=== PATIENT | female | born 1950 | race Caucasian/White ===

== ENCOUNTER 2016-03-28 22:44 | Inpatient (IN) | payer MEDICARE, OTHER ==
[~2016-03-28] VITALS: Ht 162.6 cm; Wt 64.5 kg
[~2016-03-28 22:44] MED LIST: ALBU8I INH; ASCO500 PO; ASPI81TA82 PO; ATOR20TA PO; B-COTAB41 PO; CARV3.12 PO; DIGO0.12 PO; FURO1TAB93 PO; LORA-392 PO; METO2.5T7 PO; POTA-267 PO; SERT50 PO; TAB-TAB PO
[2016-03-28 23:20] VITALS: BP 115/61; PULSE 95; RESP 20; TEMP 98; O2SAT 99
[2016-03-28] MEDS ORDERED: ZOLO50TA PO (23:20)
[2016-03-28] MEDS ORDERED: DIGO0.12 PO (23:20)
[2016-03-28] MEDS ORDERED: METO2.5T PO (23:20)
[2016-03-28] MEDS ORDERED: POTA10TA2 PO (23:20)
[2016-03-28] MEDS ORDERED: MULTTAB67 PO (23:20)
[2016-03-28] MEDS ORDERED: ATOR40TA16 PO (23:20)
[2016-03-28] MEDS ORDERED: CARV3.12 PO (23:20)
[2016-03-28] MEDS ORDERED: FURO1TAB60 PO (23:20)
[2016-03-28] MEDS ORDERED: ALBUAER3 INH (23:20)
[2016-03-28] MEDS ORDERED: VITA250T3 PO (23:20)
[2016-03-28] MEDS ORDERED: ASPI1TAB69 PO (23:20)
[2016-03-28] MEDS ORDERED: LORA-392 PO (23:20)
[2016-03-28] MEDS ORDERED: VITATAB11 PO (23:20)
[2016-03-28 23:56] VITALS: RESP 20
[2016-03-29] VITALS (11 sets, daily range): BP systolic 106–120; BP diastolic 60–73; PULSE 96–104; RESP 18–20; TEMP 97–98.8; O2SAT 94–100
[2016-03-29 00:06] LABS: AUTOMATED NEUTROPHIL # 6.9 TH/MM3 (1.8-7.7); BASOPHIL # 0.1 TH/MM3 (0-0.2); EOSINOPHIL # 0.1 TH/MM3 (0-0.4); EOSINOPHIL % 0.9 % (0.0-4.0); HEMATOCRIT 31.9 % (35.0-46.0); HEMO FLAGS DIFF FINAL; LYMPHOCYTE # 1.7 TH/MM3 (1.0-4.8); MEAN CELL VOLUME 79.3 FL (80.0-100.0); MEAN CORPUSCULAR HEMOGLOBIN 25.6 PG (27.0-34.0); MEAN CORPUSCULAR HGB CONC 32.3 % (32.0-36.0); MONO % 16.7 % (0.0-8.0); NEUT % 65.4 % (16.0-70.0); PLATELET COUNT 409 TH/MM3 (150-450); RED BLOOD COUNT 4.03 MIL/MM3 (4.00-5.30); RED CELL DISTRIBUTION WIDTH 18.5 % (11.6-17.2); WHITE BLOOD COUNT 10.6 TH/MM3 (4.0-11.0)
[2016-03-29 00:15] LABS: APTT (PATIENT) 24.7 SEC (24.3-30.1); INTERNATIONAL NORMALIZED RATIO 1.5 RATIO; PROTHROMBIN TIME - PATIENT 17.4 SEC (9.8-11.6)
--- NOTE | 2016-03-29 00:21 | PD ---
HPI Chief Complaint: Respiratory Symptoms Time Seen by Provider: 23:52 Travel History International Travel<30 days: No Contact w/Intl Traveler<30days: No Traveled to known affect area: No History of Present Illness HPI 65-year-old female presents to the emergency department by EMS transport for complaint of shortness of breath. Patient reports that she has history of asthma CHF CAD with stent placement and valvular heart disease. 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 Patient states she presents to the emergency department because she has been increasing the use of her rescue inhaler and notes increasing shortness of breath with minimal exertion. No chest pain or abdominal pain. No recent febrile illness. Patient denies any respiratory illness. No dysuria frequency urgency vomiting abdominal pain diarrhea joint pain swelling or skin rash. PFSH Past Medical History Narrative Medical Arthritis asthma CAD cardiac catheterization stent placement CHF dyslipidemia GERD valvular heart disease with mitral valve replacement tobacco use alcohol use Hx Anticoagulant Therapy: No (just asa) Arthritis: Yes Asthma: Yes Autoimmune Disease: No Anxiety: Yes Depression: Yes Heart Rhythm Problems: No Cancer: No Cardiac Catheterization: Yes (3 STENTS) Cardiovascular Problems: Yes High Cholesterol: Yes Chemotherapy: No Chest Pain: No Congestive Heart Failure: Yes Coronary Artery Disease: Yes Diabetes: No Endocrine: No Gastrointestinal Disorders: Yes GERD: Yes Genitourinary: No Hiatal Hernia: No Hypertension: Yes Immune Disorder: No Implanted Vascular Access Dvce: Yes (stents) Kidney Stones: No Musculoskeletal: Yes Neurologic: No Psychiatric: Yes Reproductive: No Respiratory: Yes (chf) Immunizations Current: Yes Radiation Therapy: No Renal Failure: No Sickle Cell Disease: No Thyroid Disease: No Ulcer: No Tetanus Vaccination: Unknown Influenza Vaccination: No ?: Not Menopausal: Yes : 4 Para: 4 Past Surgical History Body Medical Devices: MITRAL VALVE REPLACEMENT Cardiac Surgery: Yes (MITRAL VALVE REPAIR, 3 STENTS) Ear Surgery: No Endocrine Surgery: No Eye Surgery: No Genitourinary Surgery: No Gynecologic Surgery: No Oral Surgery: No Thoracic Surgery: No Tonsillectomy: Yes Other Surgery: Yes Social History Alcohol Use: Yes (OCC) Tobacco Use: Yes (QUIT for now but i smoke) Substance Use: No Allergies-Medications (Allergen,Severity, Reaction): Coded Allergies: Metoprolol (Verified Allergy, Severe, Rash, 03/28/16) Uncoded Allergies: METROPOLOL (Allergy, Severe, Rash, 01/08/14) Reported Meds & Prescriptions Reported Meds & Active Scripts Active Reported Vitamin C (Ascorbic Acid) 250 Mg Tab 250 Mg PO DAILY Vitamin B Complex (B-Complex Vitamins) 1 Tab 1 Tab PO DAILY Zoloft (Sertraline HCl) 50 Mg Tab 50 Mg PO DAILY Potassium Chloride ER (Potassium Chloride) 10 Meq Tab 10 Meq PO DAILY Multiple Vitamin 1 Tab 1 Tab PO DAILY Metolazone 2.5 Mg Tab 2.5 Mg PO DAILY Ativan (Lorazepam) 0.5 Mg Tab 0.5 Mg PO Q6H PRN Lasix (Furosemide) 40 Mg Tab 40 Mg PO BID Digoxin 0.125 Mg Tab 0.125 Mg PO DAILY Carvedilol 3.125 Mg Tab 3.125 Mg PO BID Atorvastatin (Atorvastatin Calcium) 40 Mg Tab 40 Mg PO HS Aspirin 81 Mg Tabdr 81 Mg PO DAILY Proair Hfa 8.5 GM Inh (Albuterol Sulfate) 90 Mcg/Act Aer 2 Puff INH Q4-6H PRN 108 mcg/actuation Review of Systems Except as stated in HPI: all other systems reviewed are Neg Physical Exam Narrative GENERAL: Well-developed well-nourished female in no acute distress no respiratory distress; room air O2 saturation 99% SKIN: Warm and dry. HEAD: Normocephalic. EYES: No scleral icterus. No injection or drainage. NECK: Supple, trachea midline. No JVD or lymphadenopathy. CARDIOVASCULAR: Regular rate and rhythm without murmurs, gallops, or rubs. RESPIRATORY: Breath sounds equal bilaterally. Lung sounds are clear to auscultation in all driscoll. No accessory muscle use. GASTROINTESTINAL: Abdomen soft, non-tender, nondistended. MUSCULOSKELETAL: No cyanosis, or edema. BACK: Nontender without obvious deformity. No CVA tenderness. Data Data Last Documented VS Vital Signs Date Time Temp Pulse Resp B/P Pulse Ox O2 Delivery O2 Flow Rate FiO2 03/28/16 23:56 20 03/28/16 23:55 98 Nasal Cannula 2 03/28/16 23:20 98.0 95 115/61 Orders Complete Blood Count With Diff (03/28/16 23:52) Comprehensive Metabolic Panel (03/28/16 23:52) B-Type Natriuretic Peptide (03/28/16 23:52) Act Partial Throm Time (Ptt) (03/28/16 23:52) Prothrombin Time / Inr (Pt) (03/28/16 23:52) Magnesium (Mg) (03/28/16 23:52) Ckmb (Isoenzyme) Profile (03/28/16 23:52) Troponin I (03/28/16 23:52) Urinalysis - C+S If Indicated (03/28/16 23:52) Iv Access Insert/Monitor (03/28/16 23:52) Electrocardiogram (03/28/16 23:52) Ecg Monitoring (03/28/16 23:52) Oximetry (03/28/16 23:52) Oxygen Administration (03/28/16 23:52) Chest, Single Ap (03/28/16 23:52) Sodium Chloride 0.9% Flush (Ns Flush) (03/29/16 00:00) Drug Screen, Random Urine (03/29/16 01:30) Furosemide Inj (Lasix Inj) (03/29/16 02:45) Aspirin Chew (Aspirin Chew) (03/29/16 02:45) Labs Laboratory Tests Test 03/28/16 23:55 White Blood Count 10.6 TH/MM3 Red Blood Count 4.03 MIL/MM3 Hemoglobin 10.3 GM/DL Hematocrit 31.9 % Mean Corpuscular Volume 79.3 FL Mean Corpuscular Hemoglobin 25.6 PG Mean Corpuscular Hemoglobin 32.3 % Concent Red Cell Distribution Width 18.5 % Platelet Count 409 TH/MM3 Mean Platelet Volume 8.1 FL Neutrophils (%) (Auto) 65.4 % Lymphocytes (%) (Auto) 16.0 % Monocytes (%) (Auto) 16.7 % Eosinophils (%) (Auto) 0.9 % Basophils (%) (Auto) 1.0 % Neutrophils # (Auto) 6.9 TH/MM3 Lymphocytes # (Auto) 1.7 TH/MM3 Monocytes # (Auto) 1.8 TH/MM3 Eosinophils # (Auto) 0.1 TH/MM3 Basophils # (Auto) 0.1 TH/MM3 CBC Comment DIFF FINAL Differential Comment Prothrombin Time 17.4 SEC Prothromb Time International 1.5 RATIO Ratio Activated Partial 24.7 SEC Thromboplast Time Sodium Level 133 MEQ/L Potassium Level 4.2 MEQ/L Chloride Level 98 MEQ/L Carbon Dioxide Level 26.4 MEQ/L Anion Gap 9 MEQ/L Blood Urea Nitrogen 37 MG/DL Creatinine 1.12 MG/DL Estimat Glomerular Filtration 49 ML/MIN Rate Random Glucose 87 MG/DL Calcium Level 8.2 MG/DL Magnesium Level 1.6 MG/DL Total Bilirubin 1.2 MG/DL Aspartate Amino Transf 150 U/L (AST/SGOT) Alanine Aminotransferase 145 U/L (ALT/SGPT) Alkaline Phosphatase 87 U/L Total Creatine Kinase 80 U/L Troponin I 0.04 NG/ML B-Type Natriuretic Peptide 3929 PG/ML Total Protein 5.8 GM/DL Albumin 2.9 GM/DL MDM Medical Decision Making Medical Screen Exam Complete: Yes Emergency Medical Condition: Yes Medical Record Reviewed: Yes Interpretation(s) EKG normal sinus rhythm rate 95 and interventricular conduction delay no acute ST elevation nonspecific lateral ST segment flattening CBC & BMP Diagram 03/28/16 23:55 Last Impressions Chest X-Ray 03/28/16 2352 Signed Impressions: Service Date/Time: Tuesday, March 29, 2016 00:19 - CONCLUSION: 1. Increased cardiomegaly and configuration of the cardiac silhouette suggests the possibility currently of pericardial effusion. 2. Small right pleural effusion. No overt failure. Ralph Garcia MD Differential Diagnosis Dyspnea, CHF, COPD, PE, ACS, myocardial infarction Narrative Course Patient placed on blood bank technician IV access obtained specimens collected and sent for resulting Patient resting comfortably voicing no concerns or complaints Patient presently resting supine and waiting on lab results Chest x-ray shows enlarged heart concerning for possible pericardial effusion Lab values found to be in normal range except for BNP of 3900 CK troponin I within normal range renal function is only mildly elevated 37/1.12; mild chronic anemia hemoglobin 10.2 Patient aware plan for observation admission with which she is agreeable and reports feeling comfortable after gentle diuresis Physician Communication Physician Communication discussed with Ian Roberson PA-C --obs to Dr Dahl Diagnosis Primary Impression: CHF exacerbation Additional Impressions: History of COPD Pericardial effusion without cardiac tamponade Admitting Information Admitting Physician Requests: Observation Martha Rock MD Mar 29, 2016 00:21
--- NOTE | 2016-03-29 00:38 | RADRPT ---
EXAM DATE/TIME: 03/29/2016 00:19 [facility] COMPARISON: CHEST SINGLE AP, November 02, 2015, 4:03. CHEST SINGLE AP, September 28, 2015, 1:32. INDICATIONS : Shortness of breath. MEDICAL HISTORY : Congestive heart failure. CAD SURGICAL HISTORY : Mitral valve repair. Stents ENCOUNTER: Initial ACUITY: 1 month PAIN SCORE: 0/10 LOCATION: Bilateral chest FINDINGS: There is moderate to severe cardiomegaly, worsened before. Somewhat globular cardiac silhouette sugge sting the possibility of a pericardial effusion. Patient has had previous aortic valve replacement. Small pleural effusion seen right lung base. No overt edema seen. No pneumonia. No pneumothorax. CONCLUSION: 1. Increased cardiomegaly and configuration of the cardiac silhouette suggests the possibility curren tly of pericardial effusion. 2. Small right pleural effusion. No overt failure. Ralph Garcia MD on March 29, 2016 at 0:35 Board Certified Radiologist. This report was verified electronically.
[2016-03-29 00:41] LABS: ALT (GPT) 145 U/L (10-53); ANION GAP 9 MEQ/L (5-15); AST (GOT) 150 U/L (15-37); BICARBONATE 26.4 MEQ/L (21.0-32.0); BLOOD UREA NITROGEN 37 MG/DL (7-18); CHLORIDE 98 MEQ/L (98-107); GLOMERULAR FILTRATION RATE 49 ML/MIN (>89); MAGNESIUM 1.6 MG/DL (1.5-2.5); POTASSIUM 4.2 MEQ/L (3.5-5.1); SODIUM (NA) 133 MEQ/L (136-145)
[2016-03-29 00:43] LABS: ALKALINE PHOSPHATASE 87 U/L (45-117); TOTAL BILIRUBIN ADULT 1.2 MG/DL (0.2-1.0)
[2016-03-29 00:44] LABS: CREATINE KINASE 80 U/L (26-192)
[2016-03-29] MEDS ORDERED: FUROSEMIDE 40 MG/4 ML VIAL IV PUSH ONE (02:45)
[2016-03-29] MEDS ORDERED: ASPIRIN 81 MG CHEW TAB CHEW ONE (02:45)
[2016-03-29 02:47] LABS: BACTERIA, URINE RARE /hpf; BLOOD, URINE NEG (NEG); GLUCOSE,URINE NEG (NEG); HYALINE CAST, URINE 1 /lpf (RARE); KETONE, URINE NEG (NEG); MUCUS URINE FEW /lpf (OCC); NITRITE,URINE NEG (NEG); SQUAMOUS EPITHELIAL CELL URINE 4 /hpf (0-5); TRANSITIONAL EPI CELLS, URINE <1 /hpf; URINE COLOR YELLOW (YELLW/STRAW)
[2016-03-29 02:51] LABS: AMPHETAMINE, URINE NEG (NEG); BARBITURATES, URINE NEG (NEG); COCAINE, URINE NEG (NEG); COMMENT (UR) CULT NOT INDICATED; CULTURE IF INDICATED CULT NOT INDICATED
[2016-03-29] MEDS ORDERED: SODIUM CHLORIDE 0.9% FLUSH 5 ML FLUSH IVF PRN ×2 (03:00)
[2016-03-29] MEDS ORDERED: SENNOSIDES 8.6 MG TAB PO PRN (04:30)
[2016-03-29] MEDS ORDERED: ACETAMINOPHEN 325 MG TAB PO PRN (04:30)
[2016-03-29] MEDS ORDERED: NALOXONE HCL 0.4 MG/ML AMP IV PRN (04:30)
[2016-03-29] MEDS: SODIUM CHLORIDE 0.9% FLUSH 5 ML FLUSH FLUSH SCH ×2 (08:41→20:50)
[2016-03-29] MEDS: FUROSEMIDE 40 MG/4 ML VIAL IV PUSH SCH ×2 (08:41→18:27)
[2016-03-29] MEDS ORDERED: SODIUM CHLORIDE 0.9% FLUSH 5 ML FLUSH IVF SCH (09:00)
[2016-03-29] MEDS: HEPARIN SODIUM - SQ 10,000 UNITS/ML VIAL SQ SCH ×2 (09:00→20:51)
[2016-03-29] MEDS ORDERED: PILL SPLITTER OTHER PRN (10:00)
--- NOTE | 2016-03-29 10:30 | HP.UPD ---
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 The patient has had coronary stenting by Dr. Gillis 3 years ago. She is known with ejection fraction around 15%. She also has COPD and anxiety. She ran out of her anxiety medication recently. She came into the emergency department at [facility] with worsening difficulty breathing. Chest x-ray showed a questionable pericardial effusion in addition to congestion and pleural effusions. She was admitted to telemetry. Serial CKs and troponins ordered. Diuretics ordered. Anxiety medication as ordered. A neurological consultation requested. A new to the echocardiogram also ordered. Full history and physical per nurse practitioner Kajal Dahl MD Mar 29, 2016 10:28
--- NOTE | 2016-03-29 10:36 | MH ---
cc: ADRIENNE CRAFT MD DATE OF ADMISSION: 03/29/2016 DATE OF 1950 CHIEF COMPLAINT Shortness of breath. Generalized weakness and tired feeling. TRAVEL None in the last 30 days. HISTORY OF PRESENT ILLNESS This is a 65-year-old white female who had been in her usual state of health up until approximately a month ago. She noticed shortness of breath which has worsened over the past few weeks. She has a generalized weakness and fatigue noted and states that she is tired all the time. The patient was recently hospitalized in the [facility] because she was short of breath and using her rescue inhaler more often than had initially been noted. The patient denies any chest pain, denies any temp, she denies any cough and no headache. The patient has no vomiting, no diarrhea, no constipation but she does note nausea all day for the past 24 hours. She also notes a decreased appetite. When I entered the room to examine her, she was up, out of the bed and is very restless. She is having a hard time laying still and states that she has not had her Ativan for quite sometime. She notes that she had been staying with some family members since this last hospital stay and she had no money to get her medications filled. She did make mention of Zoloft and Ativan. Most of this information is being gathered from the record. The patient is a fair to poor historian but she is answering simple yes or no questions. PAST MEDICAL HISTORY 1. Arthritis. 2. Anxiety depression. 3. Coronary artery disease. 4. Hyperlipidemia. 5. GERD. 6. Tobacco use. 7. Alcohol use. 8. Congestive heart failure. 9. Hypertension. 10. Postmenopausal. 11. Valvular heart disease. PAST SURGICAL HISTORY 1. Mitral valve replacement. 2. Cardiac stents x 3. 3. Tonsillectomy. ALLERGIES METOPROLOL. MEDICATIONS Noted from home use - 1. Zoloft p.o. 2. Ativan. 3. Albuterol inhaler. 4. Coreg. 5. Digoxin. 6. Atorvastatin. 7. Lasix. 8. Multivitamin. 9. Aspirin. 10. Potassium. 11. Metolazone. 12. B-complex vitamins. 13. Vitamin C. SOCIAL HISTORY The patient was living in her own home up until approximately 1 month ago after her hospital stay. She has been staying with her daughter. Her granddaughter has recently moved in her home. She does have occasional alcohol use. She has had long-term tobacco use but states that she has not smoked in approximately 3 weeks to a month ago. No illicit drugs. FAMILY HISTORY Heart disease, congestive heart failure and hypertension. REVIEW OF SYSTEMS A 12-point review was obtained. Positive to note her restlessness, shortness of breath, generalized weakness and fatigue, decreased appetite and nausea. All other systems were negative or unremarkable. PHYSICAL EXAMINATION VITAL SIGNS: Temp 98, pulse 98-100, respirations 20, blood pressure 111/64 and 120/68. O2 sat 99 currently on room air. Has been using O2 at 2 liters. GENERAL: Well-developed, well-nourished but slim white female, looks to be her stated age, resting on the side of the bed and standing some, restless. SKIN: Warm and dry. Slightly pale. Turgor is thin. HEENT: Atraumatic, normocephalic. PERRLA, 2. No scleral icterus. No drainage. Mucous membranes are pale pink and slightly dry. NECK: Supple. No JVD. CARDIOVASCULAR: Regular rate and rhythm. Distant heart sounds. Soft murmur at the lower left sternal border. No gallops or rubs. RESPIRATORY: She has essentially clear lung sounds anteriorly and posteriorly. She does have decreased breath sounds in her right lower base. Left lower base is essentially clear. GI: Abdomen is flat, soft, nontender. Active bowel sounds in all four quadrants. MUSCULOSKELETAL: She moves all of her extremities with purpose. She has no edema and her pulses are intact. NEUROLOGIC: She is alert, oriented x 3. She understands the situation and a fair historian. 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 PSYCH: Restless, jittery. Seems to understand her current situation. Insight is normal. DIAGNOSTIC DATA White count is 10.6, RBC 4.03, hemoglobin 10.3, hematocrit 31.9, platelet count 18.5, monocyte percentage auto 16.7. Chemistry: Sodium 133, potassium 4.2, chloride 98, carbon dioxide 26.4, anion gap 9, BUN 37, creatinine 1.12. Glucose is 87. Troponin is 0.04. BNP is 3929. Albumin 2.9, total protein 5.8. Her urine is yellow, clear; pH is 6, specific gravity 1.009, negative for glucose, ketones, occult blood, nitrites or bilirubin. Toxicology: She is negative for any barbiturates, opiates, amphetamines, benzos, cocaine or cannabis. IMAGING STUDIES Her chest x-ray shows increased cardiomegaly and configuration of cardiac silhouette suggests possibility currently of pericardial effusion. Right small pleural effusion. No overt failure. ASSESSMENT AND PLAN 1. Possible pericardial effusion without tamponade. 2. Acute kidney injury. 3. Hyponatremia. 4. Moderate protein calorie malnutrition. 5. COPD exacerbation. 6. Congestive heart failure. 7. Anxiety disorder. 8. Cardiomyopathy. Our plan is to admit her in observation, monitor her vital signs q. 4, monitor with telemetry, heart sounds and her increased restlessness and agitation. The patient can be up out of bed with activity but she needs to be monitored for safety. We will place her on a heart healthy diet, reconcile her medications and monitor her labs. The patient did receive an aspirin. We will place her on DVT prophylaxis with heparin and give her IV Lasix 40 mg b.i.d., gentle diuresis. The patient will need gentle hydration. Hopefully we can obtain this with p.o. fluids. Monitor her nutritional needs and diet. If warranted, we can get a nutritional consult. Reconcile her medications. Monitor her own telemetry. Keep a patent IV. O2. The patient will need head of bed elevated. We will monitor her BNP and recheck that in the morning along with CBC and BNP. All of this plan has been discussed with the patient and we will monitor her needs. Dictated by: MART Hopson MD PRESLEY Westfall/ROSIE /8:44 AM /10:34 AM
[2016-03-29] MEDS ORDERED: LORazepam 0.5 MG TAB PO PRN (10:45)
[2016-03-29] MEDS: LORazepam 0.5 MG TAB PO PRN ×2 (11:53→20:55)
--- NOTE | 2016-03-29 12:07 | RADRPT ---
EXAM DATE/TIME: 03/29/2016 11:14 [facility] COMPARISON: No previous studies available for comparison. INDICATIONS : Elevated lab values. MEDICAL HISTORY : Hypertension. Chronic obstructive pulmonary disease. Congestive heart failure. CAD. GERD. SURGICAL HISTORY : Tonsillectomy. Coronary stent. ENCOUNTER: Initial ACUITY: 1 day PAIN SCORE: 3/10 LOCATION: Bilateral upper quadrant MEASUREMENTS: LIVER: 17.3 cm length COMMON DUCT: 5 mm RIGHT KIDNEY: 9.7 x 4.4 x 3.7 cm SPLEEN: 8.0 cm length FINDINGS: LIVER: Normal echotexture without focal lesion or ductal dilatation. The portal system is patent. There is no evidence of ascites. COMMON DUCT: No intraluminal mass or stone visualized. GALLBLADDER: Surgical removed PANCREAS: The visualized portions are within normal limits. RIGHT KIDNEY: No hydronephrosis, stone or mass. SPLEEN: No focal lesion. CONCLUSION: 1. Mildly prominent liver. 2. Otherwise, unremarkable examination. Manfred Ricketts MD on March 29, 2016 at 12:05 Board Certified Radiologist. This report was verified electronically.
--- NOTE | 2016-03-29 14:18 | EKG ---
Date Performed: 03/28/2016 Time Performed: 23:40:00 PTAGE: 65 years EKG: Sinus rhythm POSSIBLE LEFT ATRIAL ENLARGEMENT MARKED LEFT AXIS DEVIATION MODERATE INTRAVENTRICULAR CONDUCTION DEL AY ST DEVIATION AND MODERATE T-WAVE ABNORMALITY, CONSIDER LATERAL ISCHEMIA Compared to the previous t racing, there has been improvement in the lateral ST segment changes. Sinus tachycardia has resolved . ABNORMAL ECG PREVIOUS TRACING : 11/02/15 DOCTOR: Heena Huerta Interpretating Date/Time 03/29/2016 14:18:08
[2016-03-29] MEDS: RESP: ALBUTEROL 2.5 MG/IPRATROPIUM 0.5 MG NEB (PRN) NEB (16:50)
[2016-03-29] MEDS ORDERED: FUROSEMIDE 40 MG TAB PO SCH (18:00)
[2016-03-29] MEDS: CARVEDILOL 3.125 MG TAB PO SCH (20:50)
[2016-03-29] MEDS: ATORVASTATIN 40 MG TAB PO SCH (20:51)
[2016-03-30] VITALS (10 sets, daily range): BP systolic 103–127; BP diastolic 6–73; PULSE 63–100; RESP 18–20; TEMP 97.1–98.3; O2SAT 97–100
[2016-03-30] MEDS: RESP: ALBUTEROL 2.5 MG/IPRATROPIUM 0.5 MG NEB (PRN) NEB ×2 (04:03→14:16)
[2016-03-30 07:00] LABS: ALT (GPT) 161 U/L (10-53); ANION GAP 8 MEQ/L (5-15); AST (GOT) 141 U/L (15-37); BICARBONATE 27.4 MEQ/L (21.0-32.0); BLOOD UREA NITROGEN 40 MG/DL (7-18); CHLORIDE 99 MEQ/L (98-107); GLOMERULAR FILTRATION RATE 45 ML/MIN (>89); MAGNESIUM 1.8 MG/DL (1.5-2.5); POTASSIUM 4.2 MEQ/L (3.5-5.1); SODIUM (NA) 134 MEQ/L (136-145)
[2016-03-30 07:26] LABS: ALKALINE PHOSPHATASE 87 U/L (45-117); INDIRECT BILIRUBIN 0.6 MG/DL (0.0-0.8); TOTAL BILIRUBIN ADULT 0.9 MG/DL (0.2-1.0); TRANSFERRIN IRON PROFILE 316 MG/DL (200-360)
[2016-03-30] MEDS: HEPARIN SODIUM - SQ 10,000 UNITS/ML VIAL SQ SCH ×2 (09:00→21:00)
[2016-03-30] MEDS: SODIUM CHLORIDE 0.9% FLUSH 5 ML FLUSH FLUSH SCH ×2 (09:13→21:42)
[2016-03-30] MEDS: FUROSEMIDE 40 MG/4 ML VIAL IV PUSH SCH ×2 (09:13→17:51)
[2016-03-30] MEDS: METOLAZONE 2.5 MG TAB PO SCH (09:14)
[2016-03-30] MEDS: ASCORBIC ACID 500 MG TAB PO SCH (09:14)
[2016-03-30] MEDS: SERTRALINE HCL 50 MG TAB PO SCH (09:15)
[2016-03-30] MEDS: POTASSIUM CHLORIDE 10 MEQ CONTROLLED RELEASE TAB PO SCH (09:18)
[2016-03-30] MEDS: CARVEDILOL 3.125 MG TAB PO SCH ×2 (09:18→21:42)
[2016-03-30] MEDS: ASPIRIN EC 81 MG TABEC PO SCH (09:18)
[2016-03-30] MEDS: VITAMIN B COMPLEX/VIT C TAB PO SCH (09:18)
[2016-03-30] MEDS: MULTIVITAMIN TAB PO SCH (09:19)
[2016-03-30] MEDS: DIGOXIN 0.125 MG TAB PO SCH (09:19)
--- NOTE | 2016-03-30 09:28 | HHI.PR ---
Subjective Remarks Drowsy but responds to verbal stimuli No shortness of breath at rest. Some exertional dyspnea noted No chest pain Appetite fair No headache Objective Objective Results - Vital Signs Date Time Temp Pulse Resp B/P Pulse Ox O2 Delivery O2 Flow Rate FiO2 03/30/16 09:14 99 21 03/30/16 09:12 97 114/65 03/30/16 07:41 97.6 100 18 103/56 97 03/30/16 03:32 97.4 99 20 114/62 99 03/29/16 23:22 98.8 101 18 106/71 100 03/29/16 20:30 97 03/29/16 19:52 95 21 03/29/16 19:52 95 21 03/29/16 18:19 101 18 120/73 95 03/29/16 17:30 104 03/29/16 16:06 104 18 114/70 94 03/29/16 11:50 96 18 119/60 100 Result Diagram: 03/28/16 2355 03/30/16 0610 Other Results Last Impressions Liver Ultrasound 03/29/16 0000 Signed Impressions: Service Date/Time: Tuesday, March 29, 2016 11:14 - CONCLUSION: 1. Mildly prominent liver. 2. Otherwise, unremarkable examination. Manfred Ricketts MD Chest X-Ray 03/28/16 2352 Signed Impressions: Service Date/Time: Tuesday, March 29, 2016 00:19 - CONCLUSION: 1. Increased cardiomegaly and configuration of the cardiac silhouette suggests the possibility currently of pericardial effusion. 2. Small right pleural effusion. No overt failure. Ralph Garcia MD Medications and IVs Active Medications Ascorbic Acid (Vitamin C) 250 mg DAILY PO; Start 03/30/16 at 09:00 Aspirin (Ecotrin Ec) 81 mg DAILY PO; Start 03/30/16 at 09:00 Atorvastatin Calcium (Lipitor) 40 mg HS PO; Start 03/29/16 at 21:00 Carvedilol (Coreg) 3.125 mg BID PO Last administered on 03/29/16t 20:50; Admin Dose 3.125 MG; Start 03/29/16 at 21:00 Digoxin (Lanoxin) 0.125 mg DAILY PO; Start 03/30/16 at 09:00 Furosemide (Lasix) 40 mg BID@09,18 PO; Start 03/29/16 at 18:00; Stop 03/30/16 at 08:52; Status DC Lorazepam (Ativan) 0.25 mg Q6H PRN PO; Start 03/29/16 at 10:45 Lorazepam (Ativan) 0.5 mg Q6H PRN PO Last administered on 03/29/16t 20:55; Admin Dose 0.5 MG; Start 03/29/16 at 09:45 Metolazone (Zaroxolyn) 2.5 mg DAILY PO; Start 03/30/16 at 09:00 Miscellaneous (Pill Splitter) 1 ea UNSCH PRN OTHER; Start 03/29/16 at 10:00 Multivitamins (Theragran) 1 tab DAILY PO; Start 03/30/16 at 09:00 Potassium Chloride (KCl) 10 meq DAILY PO; Start 03/30/16 at 09:00 Sertraline HCl (Zoloft) 50 mg DAILY PO; Start 03/30/16 at 09:00 Vitamin B Complex/ Vitamin C (Allbee C) 1 tab DAILY PO; Start 03/30/16 at 09:00 ROS General: Fatigue, Weakness, Other (10 point ROS done. Positives noted weakness fatigue, cough h, anxiety mild) Pulmonary: Cough, SOB Neuro/MS: Other (anxiety) Physical Exam Physical Exam PHYSICAL EXAMINATION VITAL SIGNS: Temp 98, pulse 98-100, respirations 20, blood pressure 111/64 and 120/68. O2 sat 99 currently on room air. Has been using O2 at 2 liters. GENERAL: Well-developed, well-nourished but slim white female, looks to be her stated age, resting on the side of the bed and standing some, restless. SKIN: Warm and dry. Slightly pale. Turgor is thin. HEENT: Atraumatic, normocephalic. PERRLA, 2. No scleral icterus. No drainage. Mucous membranes are pale pink and slightly dry. NECK: Supple. No JVD. CARDIOVASCULAR: Regular rate and rhythm. Distant heart sounds. Soft murmur at the lower left sternal border. No gallops or rubs. RESPIRATORY: She has essentially clear lung sounds anteriorly and posteriorly. She does have decreased breath sounds in her right lower base. Left lower base is essentially clear. GI: Abdomen is flat, soft, nontender. Active bowel sounds in all four quadrants. MUSCULOSKELETAL: She moves all of her extremities with purpose. She has no edema and her pulses are intact. NEUROLOGIC: She is alert, oriented x 3. She understands the situation and a fair historian. 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 PSYCH: Restless, jittery. Seems to understand her current situation. Insight is normal. Objective Remarks My shortness of breath is better. A/P Assessment and Plan 1. Possible pericardial effusion without tamponade. 2. Acute kidney injury. 3. Hyponatremia. 4. Moderate protein calorie malnutrition. 5. COPD exacerbation. 6. Congestive heart failure. 7. Anxiety disorder. 8. Cardiomyopathy. monitor vital signs q. 4, afebrile some tachycardia depending on exertion telemetry, Anxiety mild, much improved this a.m. out of bed with assistance only, safety heart healthy diet, reconcile her medications monitor her labs., Still shows some renal insufficiency, hyponatremia mild. BMP for a.m. Needs gentle hydration to continue. Cardiology consult pending. Appreciate expert opinion. DVT prophylaxis PUD prophylaxis No nausea vomiting. Discussed With: Nurse, Family (patient), Other (Dr. Valenzuela, patient seen on his behalf) Brandi Will Mar 30, 2016 09:28 monitor vital signs q. 4, afebrile some tachycardia depending on exertion telemetry, Anxiety mild, much improved this a.m. out of bed with assistance only, safety heart healthy diet, reconcile her medications monitor her labs., Still shows some renal insufficiency, hyponatremia mild. Needs gentle hydration to continue. Discussed With: Nurse, Family (patient), Other (Dr. Valenzuela, patient seen on his behalf) Brandi Will Mar 30, 2016 09:28
[2016-03-30] MEDS: LORazepam 0.5 MG TAB PO PRN ×2 (14:50→21:42)
[2016-03-30] MEDS: SODIUM CHLORIDE 0.9% FLUSH 5 ML FLUSH FLUSH PRN (17:51)
[2016-03-30] MEDS: ATORVASTATIN 40 MG TAB PO SCH (21:00)
--- NOTE | 2016-03-30 22:09 | MB ---
cc: SERGIO GILLIS DATE OF CONSULTATION 03/30/2016 HISTORY OF PRESENT ILLNESS Ms. Neal is a 65-year-old white female, a patient of Dr. Monroe, was admitted with progressive shortness of breath over the last several weeks, generalized fatigue. She recently ran out of her anxiety medications. She has not had any clear angina. She was found to have cardiomegaly on her chest x-ray. She is now feeling better with diuresis. PAST MEDICAL HISTORY 1. Positive for mitral valve repair. 2. Coronary artery disease. 3. Coronary stenting. 4. Arthritis. 5. Anxiety. 6. Dyslipidemia. 7. Gastroesophageal reflux disease. 8. Congestive heart failure. 9. Cardiomyopathy. 10. Hypertension. 11. History of tonsillectomy. MEDICATIONS AT HOME 1. Zoloft. 2. Ativan. 3. Albuterol inhaler. 4. Coreg. 5. Digoxin. 6. Atorvastatin. 7. Lasix. 8. Multivitamin. 9. Aspirin. 10. Potassium. 11. Metolazone. 12. B-complex vitamins. 13. Vitamin C. 14. Metoprolol. SOCIAL HISTORY She quit smoking three weeks ago. She drinks alcohol socially. She lives with her daughter. FAMILY HISTORY Positive for heart disease. REVIEW OF SYSTEMS Otherwise negative. PHYSICAL EXAMINATION VITAL SIGNS: Blood pressure 123/62, pulse 95 and regular. HEENT: Negative. NECK: 2+ carotid upstrokes. No bruits. LUNGS: Clear. HEART: Regular with a 1/6 systolic murmur, heard best at the left lower sternal border and apex. No gallop. ABDOMEN: Soft. No bruits. EXTREMITIES: Without edema. 1-2+ distal pulses. NEUROLOGIC EXAM: Grossly nonfocal. EKG Reviewed and showed normal sinus rhythm, left axis, left anterior fascicular block, intraventricular conduction delay, non-specific ST-T changes, unchanged from previous studies. LABS Hemoglobin 10.3. Potassium 4.2, creatinine 1.2. Troponin negative x 3. AST and ALT are elevated. BNP 3921. DIAGNOSES 1. Acute exacerbation of chronic systolic congestive heart failure. 2. Cardiomyopathy. 3. Acute renal insufficiency. 4. Chronic obstructive pulmonary disease exacerbation. 5. Valvular heart disease, status post mitral valve repair. 6. Coronary artery disease with history of coronary stenting. 7. Hypertension. 8. Dyslipidemia. DISPOSITION Ms. Neal was found to have evidence of cardiomegaly on her chest x-ray. We will obtain echocardiogram to evaluate for pericardial effusion, to evaluate left ventricular function and also to evaluate her valvular heart disease. She reportedly had stress test six months ago which did not show any significant ischemia. Her policy advisor is Dr. Monroe. She will continue therapy for congestive heart failure. I will follow her for cardiology during her hospitalization. She will follow up with Dr. Monroe in his office after discharge. Sergio Gillis MD OQ/SSB /9:13 PM /9:47 PM MTDGlenis
[2016-03-31] VITALS (8 sets, daily range): BP systolic 106–121; BP diastolic 57–68; PULSE 81–100; RESP 16–20; TEMP 95.9–98.1; O2SAT 97–100
[2016-03-31 08:03] LABS: BICARBONATE 31.6 MEQ/L (21.0-32.0); POTASSIUM 3.4 MEQ/L (3.5-5.1)
--- NOTE | 2016-03-31 08:49 | HHI.PR ---
Subjective Subjective Remarks ambulating in room no distress, no CARR no cp no sob afebrile feels okay waiting to have echo Review of Systems Constitutional Constitutional Remarks 12 point ROS completed, negative except as noted above Vitals/Results Vital Signs Vital Signs Date Time Temp Pulse Resp B/P Pulse Ox O2 Delivery O2 Flow Rate FiO2 03/31/16 08:00 98.1 96 18 121/67 98 03/31/16 06:55 21 03/31/16 04:25 97.6 100 20 108/57 99 03/31/16 00:01 90 03/30/16 23:32 98.1 94 20 113/56 99 03/30/16 19:55 97.1 95 20 123/62 99 03/30/16 17:14 93 105/65 03/30/16 15:41 98.3 92 18 127/73 100 03/30/16 11:24 98.1 63 18 115/61 98 03/30/16 09:14 99 21 03/30/16 09:12 97 114/65 CBC/BMP: 03/28/16 2355 03/31/16 0655 Lab Results Laboratory Tests Test 03/31/16 06:55 Sodium Level 134 MEQ/L Potassium Level 3.4 MEQ/L Chloride Level 94 MEQ/L Carbon Dioxide Level 31.6 MEQ/L Anion Gap 8 MEQ/L Blood Urea Nitrogen 43 MG/DL Creatinine 1.14 MG/DL Estimat Glomerular Filtration 48 ML/MIN Rate Random Glucose 85 MG/DL Calcium Level 8.5 MG/DL Physical Exam General General Appearance: Well Developed, Well Nourished, No Acute Distress, Comfortable Eyes Eye Exam: Pupils Equal, Pupils Reactive Ears & Nose Ears & Nose Exam: Nasal Mucosa [place] Throat Throat Exam: Oral Mucosa [place] & Moist Neck Neck Exam: Neck Supple, Trachea Midline Pulmonary Resp Exam: Clear Bilaterally Cardiology CV Exam: Regular, Murmur Gastrointestinal/Abdomen GI Exam: Soft, Non-Tender, Bowel Sounds Present, Non-Distended Musculoskeletal MS Exam: Joints Intact Integumentary Skin Exam: Warm, Dry, Intact Extremeties Extremities Exam: No Edema, Pedal Pulses Palpable Neurologic Neuro Exam: Alert, Awake, Oriented, Speech Clear, Moving All Extremities, No Focal Deficits Psychiatric Psych Exam: Appropriate Responses VTE Prophylaxis VTE Prophylaxis Device: SCDs Assessment/Plan Problem List: (1) CHF (congestive heart failure) (2) CAD (coronary artery disease) (3) Cardiomyopathy (4) History of COPD (5) Pericardial effusion without cardiac tamponade (6) Hx of mitral valve repair (7) Anxiety Assessment/Plan continue with IV diuretics, Metolazone monitor I/O 2D echo pending appreciate card input continuous telemetry may need ATTILA, will wait for echo Continue BB/ASA/Dig Heparin for DVT prophylaxis Duonebs PRN wait for echo continue as above D/W RN D/W Dr. Dahl D/W pt This patient was seen by myself and Dr. Dahl, this note is written on his behalf. Problem Qualifiers (1) CHF (congestive heart failure): Qualified Code: I50.23 - Acute on chronic systolic congestive heart failure (2) CAD (coronary artery disease): Qualified Code: I25.10 - Coronary artery disease involving [place] coronary artery of [place] heart without angina pectoris (3) Cardiomyopathy: Qualified Code: I42.9 - Cardiomyopathy, unspecified type Monse Ledesma Mar 31, 2016 08:49
[2016-03-31] MEDS: SODIUM CHLORIDE 0.9% FLUSH 5 ML FLUSH FLUSH SCH ×2 (08:50→21:28)
[2016-03-31] MEDS: FUROSEMIDE 40 MG/4 ML VIAL IV PUSH SCH ×2 (08:51→17:45)
[2016-03-31] MEDS: POTASSIUM CHLORIDE 10 MEQ CONTROLLED RELEASE TAB PO SCH ×2 (08:51→21:28)
[2016-03-31] MEDS: CARVEDILOL 3.125 MG TAB PO SCH ×2 (08:51→21:27)
[2016-03-31] MEDS: VITAMIN B COMPLEX/VIT C TAB PO SCH (08:51)
[2016-03-31] MEDS: ASPIRIN EC 81 MG TABEC PO SCH (08:51)
[2016-03-31] MEDS: MULTIVITAMIN TAB PO SCH (08:52)
[2016-03-31] MEDS: HEPARIN SODIUM - SQ 10,000 UNITS/ML VIAL SQ SCH ×2 (08:52→21:00)
[2016-03-31] MEDS: SERTRALINE HCL 50 MG TAB PO SCH (08:52)
[2016-03-31] MEDS: DIGOXIN 0.125 MG TAB PO SCH (08:52)
[2016-03-31] MEDS: METOLAZONE 2.5 MG TAB PO SCH (08:52)
[2016-03-31] MEDS: ASCORBIC ACID 500 MG TAB PO SCH (08:52)
[2016-03-31] MEDS ORDERED: POTASSIUM CL 40 MEQ/30 ML LIQ UDC PO ONE (09:15)
[2016-03-31] MEDS: RESP: ALBUTEROL 2.5 MG/IPRATROPIUM 0.5 MG NEB (PRN) NEB (11:08)
--- NOTE | 2016-03-31 13:20 | PD.PN.STU ---
Subjective Remarks pt is a 65 yo female that presented to the ED with SOB and COPD exacerbation. Chest Xray shows cardiomegaly, pericardial effusion, and small right pleural effusion. GI is consulted because of elevated liver function tests. AST 141, ALT 161, and alk phos 87, total bili .9, direct .3, and indirect .6. The patient reports rare alcohol use and use to drink years ago, denies illicit drug use, and denies new sexual partners. She does not report any past medical history or family history of hepatitis, pancreatitis or GI complaints. No nausea , vomiting, change in stools, urine, or abdominal pain reported. ROS: Negative for GI complaints Objective Vitals AST 141, ALT 161, and alk phos 87, total bili .9, direct .3, and indirect .6. Liver u/s= 17.3 cm and no other features. PT: 17.7 Drug screen negative Hepatitis panel pending ABD: no pain illicit on palpation, normal bowel sounds. No ascites, jaundice, scleral icterus, spider angiomas, no encephalopathy Vital Signs Date Time Temp Pulse Resp B/P Pulse Ox O2 Delivery O2 Flow Rate FiO2 03/31/16 12:00 96.9 81 16 118/68 98 03/31/16 08:00 98.1 96 18 121/67 98 03/31/16 07:16 92 03/31/16 06:55 21 03/31/16 04:25 97.6 100 20 108/57 99 03/31/16 00:01 90 03/30/16 23:32 98.1 94 20 113/56 99 03/30/16 19:55 97.1 95 20 123/62 99 03/30/16 17:14 93 105/65 03/30/16 15:41 98.3 92 18 127/73 100 Result Diagram: 03/28/16 2355 03/31/16 0655 A/P Assessment and Plan Hepatocellular injury due to drug induced or viral. Await hepatitis panel. Branden Orozco Mar 31, 2016 13:20
[2016-03-31] MEDS: LORazepam 0.5 MG TAB PO PRN ×2 (14:24→21:28)
--- NOTE | 2016-03-31 16:18 | EC ---
Study Study Date:03/31/2016 STUDY CONCLUSIONS SUMMARY - Left ventricle: The cavity size was severely dilated. Systolic function was severely reduced. The estimated ejection fraction was in the range of 10% to 15%. Diffuse hypokinesis. - Mitral valve: An annular ring prosthesis was present. The findings are consistent with mild stenosis. Moderate to severe regurgitation. - Left atrium: The atrium was moderately dilated. - Right ventricle: The cavity size was dilated. - Right atrium: The atrium was severely dilated. - Tricuspid valve: Moderate regurgitation. - Pulmonic valve: Mild regurgitation. - Pulmonary arteries: PA peak pressure: 48mm Hg (S). If LV function is below 40, please consider prescribing an ACEI or ARB or document rationale for non-use. PROCEDURE DATA STUDY STATUS: Elective. Procedure: Transthoracic echocardiography. Image quality was good. Scanning was performed from the parasternal, apical, and subcostal acoustic windows. Study completion: The patient tolerated the procedure well. Transthoracic echocardiography. M-mode, complete 2D, complete spectral Doppler, and color Doppler. Height: Height: 64in. Weight: Weight: 142.7lb. Body mass index: BMI: 24.5kg/m^2. Body surface area: BSA: 1.7m^2. Patient status: Inpatient. CARDIAC ANATOMY LEFT VENTRICLE: The cavity size was severely dilated. Systolic function was severely reduced. The estimated ejection fraction was in the range of 10% to 15%. Diffuse hypokinesis. AORTIC VALVE: The valve appears to be grossly normal. Trileaflet. Doppler: There was no stenosis. No significant regurgitation. Valve area: 1.08cm^2(VTI). Indexed valve area: 0.64cm^2/m^2 (VTI). Valve area: 0.99cm^2 (Vmax). Indexed valve area: 0.58cm^2/m^2 (Vmax). Mean gradient: 3mm Hg (S). MITRAL VALVE: Moderately thickened leaflets, . An annular ring prosthesis was present. Doppler: The findings are consistent with mild stenosis. There does appear to be increased flow across the mitral valve, concerning for mitral stenosis. This appears to be most likely mild. Valve area by continuity equation is incorrect due to significant mitral regurgitation. Moderate to severe regurgitation. Valve area by pressure half-time: 2.93cm^2. Indexed valve area by pressure half-time: 1.72cm^2/m^2. Valve area by continuity equation (using LVOT flow): 0.39cm^2. Indexed valve area by continuity equation (using LVOT flow): 0.23cm^2/m^2. Mean gradient: 7mm Hg (D). Peak gradient: 18mm Hg (D). LEFT ATRIUM: The atrium was moderately dilated. RIGHT VENTRICLE: The cavity size was dilated. PULMONIC VALVE: Not well visualized. Doppler: There was no evidence for stenosis. Mild regurgitation. TRICUSPID VALVE: The valve appears to be grossly normal. Doppler: There was no evidence for stenosis. Moderate regurgitation. RIGHT ATRIUM: The atrium was severely dilated. PERICARDIUM: There was no pericardial effusion. Patient weight: 142.7lb _Ejection fraction:_ 65-75% _Fractional shortening:_ 32% up to 5Kg 5-11.5Kg 11.6-22.9Kg 23-45Kg 45-57Kg Aortic Root 7-13 <17 13-22 17-27 17-27 LA diam 6-13 <23 24-38 33-47 37-40 RVID 10-17 7-15 7-15 7-18 8-17 LVIDd 12-22 <32 24-38 33-47 37-40 LVPW 2-4 3-6 5-7 6-8 7-8 IVS 2-4 3-6 5-7 6-8 7-8 BASIC MEASUREMENTS ADULT NORMAL Left ventricle LV internal dimension, ED, chordal *74.7 mm 43-52 level, PLAX LV internal dimension, ES, chordal *70.9 mm 23-38 level, PLAX Fractional shortening, chordal level, *5 % >29 PLAX LV posterior wall thickness, ED 9.36 mm IVS/LVPW ratio, ED 1.01 <1.3 Volume, ED, MOD, 1-plane 310 ml Volume, ES, MOD, 1-plane 274 ml Ejection fraction, MOD, 1-plane 12 % Stroke volume, MOD, 1-plane 36 ml Volume index, ED, MOD, 1-plane 182 ml/m^2 Volume index, ES, MOD, 1-plane 161 ml/m^2 Stroke index, MOD, 1-plane 21.2 ml/m^2 Volume, ED, MOD, 2-plane 308 ml Volume, ES, MOD, 2-plane 275 ml Ejection fraction, MOD, 2-plane 11 % Stroke volume, MOD, 2-plane 33 ml Volume index, ED, MOD, 2-plane 181 ml/m^2 Volume index, ES, MOD, 2-plane 162 ml/m^2 Stroke index, MOD, 2-plane 19.4 ml/m^2 Ventricular septum Septal thickness, ED 9.49 mm Aortic valve Leaflet separation 18 mm 15-26 Aorta Root diameter, ED 30 mm Left atrium Anterior-posterior dimension 40 mm Anterior-posterior dimension index *2.35 cm/m^2 <2.2 BASIC MEASUREMENTS ADULT NORMAL Aortic valve Leaflet separation 18 mm 15-26 DOPPLER MEASUREMENTS ADULT NORMAL Main pulmonary artery Pressure, S *48 mm Hg =30 Aortic valve Peak velocity, S 112 cm/s Mean velocity, S 82.4 cm/s VTI, S 43.9 cm Mean gradient, S 3 mm Hg Valve area, VTI 1.08 cm^2 Valve area index, VTI 0.64 cm^2/m^2 Valve area, Vmax 0.99 cm^2 Valve area index, Vmax 0.58 cm^2/m^2 Mitral valve Peak E-wave velocity 200 cm/s Peak A-wave velocity 114 cm/s Mean velocity, D 127 cm/s Pressure half-time 75 ms Mean gradient, D 7 mm Hg Peak gradient, D 18 mm Hg Peak E/A ratio 1.8 Valve area, pressure half-time 2.93 cm^2 Valve area index, pressure half-time 1.72 cm^2/m^2 Valve area, LVOT continuity 0.39 cm^2 Valve area index, LVOT continuity 0.23 cm^2/m^2 Tricuspid valve Regurgitant peak velocity 240 cm/s Peak RV-RA gradient, S 23 mm Hg Maximal regurgitant velocity 240 cm/s Systemic veins Estimated CVP 10 mm Hg Right ventricle RV pressure, S *50 mm Hg <30 Pulmonic valve Peak velocity, S 66.2 cm/s LEGEND: Mean values are shown as u=mean value. Asterisk (*) parker values outside specified normal range. Prepared and signed by Graham Schmidt [id number]
--- NOTE | 2016-03-31 17:06 | PD.CONS ---
HPI History of Present Illness This is a 65 year old female whom we are asked to evaluate for abnormal liver function tests apparently the patient was admitted to the hospital to 3 days ago with complaints of shortness of breath she is diagnosed with congestive heart failure and is currently being treated for it she's gradually improving but she was noted to have elevated liver function tests the patient does not recall having had problems with the liver in the past she denies any abdominal pain nausea vomiting diarrhea constipation denies any fever or chills her major complaints were mostly of shortness of breath and dyspnea on exertion she is also known for a while but she has congestive heart failure apparently on a prior note from cardiology she has an ejection fraction of about 20-25% she also has had a history of mitral valve repair and recently she was told she has a leak in both her mitral valve and her tricuspid valve [facility] Past Medical History 1. Arthritis. 2. Anxiety depression. 3. Coronary artery disease. 4. Hyperlipidemia. 5. GERD. 6. Tobacco use. 7. Alcohol use. 8. Congestive heart failure. 9. Hypertension. 10. Postmenopausal. 11. Valvular heart disease. Past Surgical History PAST SURGICAL HISTORY 1. Mitral valve replacement. 2. Cardiac stents x 3. 3. Tonsillectomy. Coded Allergies: Metoprolol (Verified Allergy, Severe, Rash, 03/28/16) Uncoded Allergies: METROPOLOL (Allergy, Severe, Rash, 01/08/14) Medications 1. Zoloft p.o. 2. Ativan. 3. Albuterol inhaler. 4. Coreg. 5. Digoxin. 6. Atorvastatin. 7. Lasix. 8. Multivitamin. 9. Aspirin. 10. Potassium. 11. Metolazone. 12. B-complex vitamins. 13. Vitamin C. Family History Heart disease, congestive heart failure and hypertension. Social History occasional alcohol use. She has had long-term tobacco use but states that she has not smoked in approximately 3-1/2 weeks Review of Systems ROS Review of systems Patient denies any headache dizziness blurry vision, denies any chest pain shortness of breath cough fever chills, Denies any palpitations or fatigue denies any polyuria dysuria hematuria, denies any numbness tingling or weakness, denies any skin rash pruritus or jaundice, denies any easy bruising or bleeding tendency, denies any recent change in mood GI Exam Vitals I&O Vital Signs Date Time Temp Pulse Resp B/P Pulse Ox O2 Delivery O2 Flow Rate FiO2 03/31/16 12:00 96.9 81 16 118/68 98 03/31/16 08:00 98.1 96 18 121/67 98 03/31/16 07:16 92 03/31/16 06:55 21 03/31/16 04:25 97.6 100 20 108/57 99 03/31/16 00:01 90 03/30/16 23:32 98.1 94 20 113/56 99 03/30/16 19:55 97.1 95 20 123/62 99 03/30/16 17:14 93 105/65 I/O 03/30/16 03/30/16 03/30/16 03/31/16 03/31/16 03/31/16 07:00 15:00 23:00 07:00 15:00 23:00 Intake Total 480 ml Balance 480 ml Intake Oral 480 ml # Voids 3 1 Imaging Last Impressions Liver Ultrasound 03/29/16 0000 Signed Impressions: Service Date/Time: Tuesday, March 29, 2016 11:14 - CONCLUSION: 1. Mildly prominent liver. 2. Otherwise, unremarkable examination. Manfred Ricketts MD Chest X-Ray 03/28/16 1811 Signed Impressions: Service Date/Time: Tuesday, March 29, 2016 00:19 - CONCLUSION: 1. Increased cardiomegaly and configuration of the cardiac silhouette suggests the possibility currently of pericardial effusion. 2. Small right pleural effusion. No overt failure. Ralph Garcia MD Laboratory Test 03/31/16 03/31/16 06:55 11:03 Sodium Level 134 MEQ/L Potassium Level 3.4 MEQ/L Chloride Level 94 MEQ/L Carbon Dioxide Level 31.6 MEQ/L Anion Gap 8 MEQ/L Blood Urea Nitrogen 43 MG/DL Creatinine 1.14 MG/DL Estimat Glomerular Filtration 48 ML/MIN Rate Random Glucose 85 MG/DL Calcium Level 8.5 MG/DL Hepatitis A IgM Antibody NEGATIVE Hepatitis B Surface Antigen NEGATIVE Hepatitis B Core IgM Antibody NEGATIVE Hepatitis C Antibody NEGATIVE Physical Examination HEENT: Pupils round and reactive to light; normocephalic; atraumatic; no jaundice. Throat is clear. NECK: Neck is supple, no JVD, no lymphadenopathy. CHEST: Chest is clear to auscultation and percussion. CARDIAC: Regular rate and rhythm with no gallop or rubs. Cardiac murmurs auscultated ABDOMEN: Soft, nondistended, nontender; no hepatosplenomegaly; bowel sounds are present in all four quadrants. EXTREMITIES: No clubbing, cyanosis, or edema. SKIN: Normal; no rash; no jaundice. 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 Assessment and Plan Plan Patient with congestive heart failure and valvular heart disease who has ejection fraction of about 10-15% is also noted to have an elevation of her liver function tests with a prominent liver on the ultrasound Patient most likely has congestive hepatopathy We will monitor her labs Recommend treating her congestive heart failure and hopefully we'll see a decline in her liver enzymes Further recommendations shall depend on her hospital course Dayo Montes MD Mar 31, 2016 17:06
[2016-03-31] MEDS: SODIUM CHLORIDE 0.9% FLUSH 5 ML FLUSH FLUSH PRN (17:44)
[2016-03-31] MEDS: ATORVASTATIN 40 MG TAB PO SCH (21:00)
[2016-03-31] MEDS: ONDANSETRON HCL 4 MG/2 ML VIAL IVP PRN (22:47)
[2016-04-01 04:21] VITALS: BP 121/73; PULSE 88; RESP 18; TEMP 97.4; O2SAT 95
[2016-04-01 07:45] LABS: HEMATOCRIT 30.6 % (35.0-46.0); MEAN CELL VOLUME 79.5 FL (80.0-100.0); MEAN CORPUSCULAR HEMOGLOBIN 24.9 PG (27.0-34.0); MEAN CORPUSCULAR HGB CONC 31.3 % (32.0-36.0); PLATELET COUNT 391 TH/MM3 (150-450); RED BLOOD COUNT 3.85 MIL/MM3 (4.00-5.30); RED CELL DISTRIBUTION WIDTH 18.9 % (11.6-17.2); WHITE BLOOD COUNT 12.3 TH/MM3 (4.0-11.0)
[2016-04-01 07:46] LABS: REVIEW FLAG FINAL
[2016-04-01 08:00] VITALS: PULSE 92
[2016-04-01 08:21] LABS: ALKALINE PHOSPHATASE 130 U/L (45-117); ALT (GPT) 226 U/L (10-53); ANION GAP 12 MEQ/L (5-15); AST (GOT) 166 U/L (15-37); BLOOD UREA NITROGEN 48 MG/DL (7-18); CHLORIDE 88 MEQ/L (98-107); GLOMERULAR FILTRATION RATE 37 ML/MIN (>89); POTASSIUM 3.4 MEQ/L (3.5-5.1); SODIUM (NA) 134 MEQ/L (136-145); TOTAL BILIRUBIN ADULT 0.7 MG/DL (0.2-1.0)
[2016-04-01] MEDS ORDERED: POTASSIUM CL 40 MEQ/30 ML LIQ UDC PO ONE (08:30)
--- NOTE | 2016-04-01 08:31 | HHI.PR ---
Subjective Subjective Remarks c/o anxiety, wants Ativan no cp no sob ambulating without distress tele reviewed, 11 NSVT noted asymptomatic Review of Systems Constitutional Constitutional Remarks 12 point ROS completed, negative except as noted above Vitals/Results Intake & Output 03/31/16 03/31/16 04/01/16 15:00 23:00 07:00 Intake Total 480 ml 360 ml Balance 480 ml 360 ml Intake Oral 480 ml 360 ml # Voids 1 4 # Bowel Movements 1 Vital Signs Vital Signs Date Time Temp Pulse Resp B/P Pulse Ox O2 Delivery O2 Flow Rate FiO2 04/01/16 04:21 97.4 88 18 121/73 95 03/31/16 20:01 96.4 91 18 106/68 99 03/31/16 19:16 97 03/31/16 16:03 95.9 88 18 108/60 100 03/31/16 12:00 96.9 81 16 118/68 98 CBC/BMP: 04/01/16 0610 04/01/16 0610 Lab Results Laboratory Tests Test 03/31/16 04/01/16 11:03 06:10 Hepatitis A IgM Antibody NEGATIVE Hepatitis B Surface Antigen NEGATIVE Hepatitis B Core IgM Antibody NEGATIVE Hepatitis C Antibody NEGATIVE White Blood Count 12.3 TH/MM3 Red Blood Count 3.85 MIL/MM3 Hemoglobin 9.6 GM/DL Hematocrit 30.6 % Mean Corpuscular Volume 79.5 FL Mean Corpuscular Hemoglobin 24.9 PG Mean Corpuscular Hemoglobin 31.3 % Concent Red Cell Distribution Width 18.9 % Platelet Count 391 TH/MM3 Mean Platelet Volume 8.2 FL Sodium Level 134 MEQ/L Potassium Level 3.4 MEQ/L Chloride Level 88 MEQ/L Carbon Dioxide Level 34.0 MEQ/L Anion Gap 12 MEQ/L Blood Urea Nitrogen 48 MG/DL Creatinine 1.44 MG/DL Estimat Glomerular Filtration 37 ML/MIN Rate Random Glucose 108 MG/DL Calcium Level 8.4 MG/DL Total Bilirubin 0.7 MG/DL Aspartate Amino Transf 166 U/L (AST/SGOT) Alanine Aminotransferase 226 U/L (ALT/SGPT) Alkaline Phosphatase 130 U/L Total Protein 6.1 GM/DL Albumin 2.8 GM/DL Physical Exam General General Appearance: Well Developed, Well Nourished, No Acute Distress, Comfortable Eyes Eye Exam: Pupils Equal, Pupils Reactive Ears & Nose Ears & Nose Exam: Nasal Mucosa [place] Throat Throat Exam: Oral Mucosa [place] & Moist Neck Neck Exam: Neck Supple, Trachea Midline Pulmonary Resp Exam: Clear Bilaterally Cardiology CV Exam: Regular, Murmur Gastrointestinal/Abdomen GI Exam: Soft, Non-Tender, Bowel Sounds Present, Non-Distended Musculoskeletal MS Exam: Joints Intact Integumentary Skin Exam: Warm, Dry, Intact Extremeties Extremities Exam: No Edema, Pedal Pulses Palpable Neurologic Neuro Exam: Alert, Awake, Oriented, Speech Clear, Moving All Extremities, No Focal Deficits Psychiatric Psych Exam: Appropriate Responses VTE Prophylaxis VTE Prophylaxis Device: SCDs Assessment/Plan Problem List: (1) CHF (congestive heart failure) (2) CAD (coronary artery disease) (3) Cardiomyopathy (4) History of COPD (5) Pericardial effusion without cardiac tamponade (6) Hx of mitral valve repair (7) Anxiety (8) Transaminitis Assessment/Plan continue with IV diuretics, Metolazone monitor I/O 2D echo EF 10-15% appreciate card input continuous telemetry Continue BB/ASA/Dig/Metolazone will need ATTILA, however renal fx has declined. Noted with NSVT 11 beats. will increase Coreg to 12.5 mg po bid will check Mg Replace K PO LFTs elevated, likely sec. to CHF Hep profile negative Appreciate GI input Heparin for DVT prophylaxis Duonebs PRN Ativan PRN Labs reviewed Continue with above tx Labs in am D/W RN D/W Dr. Dahl D/W pt This patient was seen by myself and Dr. Dahl, this note is written on his behalf. Problem Qualifiers (1) CHF (congestive heart failure): Qualified Code: I50.23 - Acute on chronic systolic congestive heart failure (2) CAD (coronary artery disease): Qualified Code: I25.10 - Coronary artery disease involving [place] coronary artery of [place] heart without angina pectoris (3) Cardiomyopathy: Qualified Code: I42.9 - Cardiomyopathy, unspecified type Monse Ledesma Apr 01, 2016 08:31
[2016-04-01 08:39] VITALS: BP 111/59; PULSE 98; RESP 18; TEMP 97.5; O2SAT 93
[2016-04-01] MEDS: HEPARIN SODIUM - SQ 10,000 UNITS/ML VIAL SQ SCH ×2 (09:00→20:20)
[2016-04-01] MEDS: CARVEDILOL 12.5 MG TAB PO SCH ×2 (09:00→20:20)
[2016-04-01] MEDS: SODIUM CHLORIDE 0.9% FLUSH 5 ML FLUSH FLUSH SCH ×2 (09:09→20:20)
[2016-04-01] MEDS: METOLAZONE 2.5 MG TAB PO SCH (09:10)
[2016-04-01] MEDS: DIGOXIN 0.125 MG TAB PO SCH (09:10)
[2016-04-01] MEDS: LORazepam 0.5 MG TAB PO PRN ×2 (09:11→17:38)
[2016-04-01] MEDS: ASPIRIN EC 81 MG TABEC PO SCH (09:11)
[2016-04-01] MEDS: VITAMIN B COMPLEX/VIT C TAB PO SCH (09:11)
[2016-04-01] MEDS: SERTRALINE HCL 50 MG TAB PO SCH (09:11)
[2016-04-01] MEDS: POTASSIUM CHLORIDE 10 MEQ CONTROLLED RELEASE TAB PO SCH ×2 (09:11→20:20)
[2016-04-01] MEDS: MULTIVITAMIN TAB PO SCH (09:11)
[2016-04-01] MEDS: ASCORBIC ACID 500 MG TAB PO SCH (09:12)
[2016-04-01] MEDS: FUROSEMIDE 40 MG/4 ML VIAL IV PUSH SCH ×2 (09:12→17:34)
--- NOTE | 2016-04-01 10:03 | HHI.GIFU ---
Subjective Remarks Resting in bed. Denies any nausea, vomiting, or abdominal pain. Tolerating diet. (Lori Browning) Objective Vitals I&O Vital Signs Date Time Temp Pulse Resp B/P Pulse Ox O2 Delivery O2 Flow Rate FiO2 04/01/16 08:39 97.5 98 18 93 04/01/16 04:21 97.4 88 18 121/73 95 03/31/16 20:01 96.4 91 18 106/68 99 03/31/16 19:16 97 03/31/16 16:03 95.9 88 18 108/60 100 03/31/16 12:00 96.9 81 16 118/68 98 I/O 03/31/16 03/31/16 03/31/16 04/01/16 04/01/16 04/01/16 07:00 15:00 23:00 07:00 15:00 23:00 Intake Total 480 ml 360 ml Balance 480 ml 360 ml Intake Oral 480 ml 360 ml # Voids 3 1 4 # Bowel Movements 1 Laboratory Laboratory Tests Test 03/31/16 04/01/16 11:03 06:10 Hepatitis A IgM Antibody NEGATIVE Hepatitis B Surface Antigen NEGATIVE Hepatitis B Core IgM Antibody NEGATIVE Hepatitis C Antibody NEGATIVE White Blood Count 12.3 Red Blood Count 3.85 Hemoglobin 9.6 Hematocrit 30.6 Mean Corpuscular Volume 79.5 Mean Corpuscular Hemoglobin 24.9 Mean Corpuscular Hemoglobin 31.3 Concent Red Cell Distribution Width 18.9 Platelet Count 391 Mean Platelet Volume 8.2 Sodium Level 134 Potassium Level 3.4 Chloride Level 88 Carbon Dioxide Level 34.0 Anion Gap 12 Blood Urea Nitrogen 48 Creatinine 1.44 Estimat Glomerular Filtration 37 Rate Random Glucose 108 Calcium Level 8.4 Total Bilirubin 0.7 Aspartate Amino Transf 166 (AST/SGOT) Alanine Aminotransferase 226 (ALT/SGPT) Alkaline Phosphatase 130 Total Protein 6.1 Albumin 2.8 Imaging Last Impressions Liver Ultrasound 03/29/16 0000 Signed Impressions: Service Date/Time: Tuesday, March 29, 2016 11:14 - CONCLUSION: 1. Mildly prominent liver. 2. Otherwise, unremarkable examination. Manfred Ricketts MD Chest X-Ray 03/28/16 2772 Signed Impressions: Service Date/Time: Tuesday, March 29, 2016 00:19 - CONCLUSION: 1. Increased cardiomegaly and configuration of the cardiac silhouette suggests the possibility currently of pericardial effusion. 2. Small right pleural effusion. No overt failure. Ralph Garcia MD Physical Exam HEENT: Normocephalic; atraumatic; no jaundice. CHEST: Chest is clear to auscultation and percussion. CARDIAC: RRR, Murmur ABDOMEN: Soft, nondistended, nontender; no hepatosplenomegaly; bowel sounds are present in all four quadrants. EXTREMITIES: No clubbing, cyanosis, or edema. SKIN: Normal; no rash; no jaundice. WATCH REPAIRER: No focal deficits; alert and oriented times three. (Lori Browning) Assessment and Plan Plan ASSESSMENT: - Elevated LFTs in patient with CHF and valvular heart disease, EF ~ 10-15%. Liver Ultrasound (03/29/16)---> 1. Mildly prominent liver. 2. Otherwise, unremarkable examination. Hepatitis negative. LFTs T. Bili 0.7, AST 166, ALT 226, Alk Phosph 130. Most likely this is congestive hepatopathy. PLAN: - MITCH, heart healthy - Monitor LFTs - Recommend treating her congestive heart failure and hopefully we'll see a decline in her liver enzymes - Further recommendations shall depend on her hospital course - Pt seen and examined by Dr. Montes and myself and this note is written on his behalf (Lori Browning) Physician Comments Patient seen and examined Agree with above Continue with current supportive care Monitor labs (Dyao Montes MD) Lori Browning Apr 01, 2016 10:03 Dayo Montes MD Apr 01, 2016 17:04
--- NOTE | 2016-04-01 13:50 | EKG ---
Date Performed: 04/01/2016 Time Performed: 01:42:32 PTAGE: 65 years EKG: Sinus rhythm POSSIBLE RIGHT ATRIAL ENLARGEMENT POSSIBLE LEFT ATRIAL ENLARGEMENT LEFT ANTERIOR FASCICULAR BLOCK ST DEVIATION AND MODERATE T-WAVE ABNORMALITY, CONSIDER LATERAL ISCHEMIA ABNORMAL ECG PREVIOUS TRACING : 03/28/2016 23.40.00 Since previous tracing, no significant change noted DOCTOR: Heena Huerta Interpretating Date/Time 04/01/2016 13:43:51
[2016-04-01 15:11] VITALS: BP 109/62; PULSE 74; RESP 18; TEMP 96.2; O2SAT 96
[2016-04-01 16:55] VITALS: PULSE 94
[2016-04-01 20:00] VITALS: BP 98/58; PULSE 108; PULSE 93; RESP 16; TEMP 97.5; O2SAT 95
[2016-04-01] MEDS: ATORVASTATIN 40 MG TAB PO SCH (20:23)
[2016-04-02] VITALS (8 sets, daily range): BP systolic 97–116; BP diastolic 56–81; PULSE 80–97; RESP 16–18; TEMP 96–97.9; O2SAT 95–99
[2016-04-02] MEDS: VITAMIN B COMPLEX/VIT C TAB PO SCH (08:51)
[2016-04-02] MEDS: MULTIVITAMIN TAB PO SCH (08:52)
[2016-04-02] MEDS: SERTRALINE HCL 50 MG TAB PO SCH (08:52)
[2016-04-02] MEDS: ASPIRIN EC 81 MG TABEC PO SCH (08:52)
[2016-04-02] MEDS: ASCORBIC ACID 500 MG TAB PO SCH (08:52)
[2016-04-02] MEDS: CARVEDILOL 12.5 MG TAB PO SCH ×2 (08:52→20:21)
[2016-04-02] MEDS: METOLAZONE 2.5 MG TAB PO SCH (08:52)
[2016-04-02] MEDS: POTASSIUM CHLORIDE 10 MEQ CONTROLLED RELEASE TAB PO SCH ×2 (08:52→20:22)
[2016-04-02] MEDS: FUROSEMIDE 40 MG/4 ML VIAL IV PUSH SCH ×2 (08:52→17:50)
[2016-04-02] MEDS: SODIUM CHLORIDE 0.9% FLUSH 5 ML FLUSH FLUSH SCH ×2 (08:53→20:23)
[2016-04-02] MEDS: HEPARIN SODIUM - SQ 10,000 UNITS/ML VIAL SQ SCH ×2 (09:00→20:22)
[2016-04-02] MEDS: DIGOXIN 0.125 MG TAB PO SCH (09:00)
[2016-04-02 09:54] LABS: HEMATOCRIT 32.2 % (35.0-46.0); MEAN CORPUSCULAR HEMOGLOBIN 24.6 PG (27.0-34.0); MEAN CORPUSCULAR HGB CONC 31.2 % (32.0-36.0); PLATELET COUNT 355 TH/MM3 (150-450); RED BLOOD COUNT 4.08 MIL/MM3 (4.00-5.30)
[2016-04-02 10:07] LABS: REVIEW FLAG FINAL
[2016-04-02 10:11] LABS: BICARBONATE 39.3 MEQ/L (21.0-32.0); POTASSIUM 3.2 MEQ/L (3.5-5.1)
[2016-04-02 10:17] LABS: INDIRECT BILIRUBIN 0.4 MG/DL (0.0-0.8); TOTAL BILIRUBIN ADULT 0.8 MG/DL (0.2-1.0)
[2016-04-02 10:31] LABS: DIGOXIN 0.9 NG/ML (0.8-2.0)
--- NOTE | 2016-04-02 14:48 | HHI.PR ---
Subjective Interval History Alert, oriented, is now more able to walk with less shortness of breath Review of Systems Constitutional Constitutional Remarks Exertional dyspnea, no pain, 10 system reviewed and otherwise negative Vitals/Results Intake & Output 04/01/16 04/01/16 04/02/16 15:00 23:00 07:00 Intake Total 6 ml 960 ml Balance 6 ml 960 ml Intake Oral 960 ml IV Total 6 ml # Voids 4 5 Vital Signs Vital Signs Date Time Temp Pulse Resp B/P Pulse Ox O2 Delivery O2 Flow Rate FiO2 04/02/16 12:26 97 04/02/16 12:00 97.9 85 18 102/56 98 04/02/16 08:00 96.1 93 18 112/66 97 04/02/16 04:00 97.2 95 16 108/65 95 04/02/16 00:00 97.2 80 16 116/81 97 04/01/16 20:00 97.5 108 16 98/58 95 04/01/16 20:00 93 04/01/16 16:55 94 04/01/16 15:11 96.2 74 18 109/62 96 CBC/BMP: 04/02/16 0833 04/02/16 0833 Lab Results Laboratory Tests Test 04/02/16 08:33 White Blood Count 10.0 TH/MM3 Red Blood Count 4.08 MIL/MM3 Hemoglobin 10.1 GM/DL Hematocrit 32.2 % Mean Corpuscular Volume 79.0 FL Mean Corpuscular Hemoglobin 24.6 PG Mean Corpuscular Hemoglobin 31.2 % Concent Red Cell Distribution Width 19.0 % Platelet Count 355 TH/MM3 Mean Platelet Volume 8.1 FL Sodium Level 136 MEQ/L Potassium Level 3.2 MEQ/L Chloride Level 90 MEQ/L Carbon Dioxide Level 39.3 MEQ/L Anion Gap 7 MEQ/L Blood Urea Nitrogen 41 MG/DL Creatinine 1.21 MG/DL Estimat Glomerular Filtration 45 ML/MIN Rate Random Glucose 87 MG/DL Calcium Level 8.6 MG/DL Magnesium Level 2.0 MG/DL Total Bilirubin 0.8 MG/DL Direct Bilirubin 0.4 MG/DL Indirect Bilirubin 0.4 MG/DL Aspartate Amino Transf 148 U/L (AST/SGOT) Alanine Aminotransferase 239 U/L (ALT/SGPT) Alkaline Phosphatase 95 U/L Total Protein 6.0 GM/DL Albumin 2.9 GM/DL Digoxin Level 0.9 NG/ML Physical Exam General General Appearance: Well Developed, Well Nourished, No Acute Distress, Comfortable Eyes Eye Exam: Pupils Equal, Pupils Reactive Ears & Nose Ears & Nose Exam: Nasal Mucosa [address] Throat Throat Exam: Oral Mucosa [address] & Moist Neck Neck Exam: Neck Supple, Trachea Midline Pulmonary Resp Exam: Clear Bilaterally Cardiology CV Exam: Regular, Murmur Gastrointestinal/Abdomen GI Exam: Soft, Non-Tender, Bowel Sounds Present, Non-Distended Musculoskeletal MS Exam: Normal Tone Integumentary Skin Exam: Warm, Dry, Intact Extremeties Extremities Exam: No Edema, Pedal Pulses Palpable Neurologic Neuro Exam: Alert, Awake, Oriented, Speech Clear, Moving All Extremities, No Focal Deficits Psychiatric Psych Exam: Appropriate Responses VTE Prophylaxis VTE Prophylaxis Device: SCDs Assessment/Plan Problem List: (1) CHF (congestive heart failure) (2) CAD (coronary artery disease) (3) Cardiomyopathy (4) History of COPD (5) Pericardial effusion without cardiac tamponade (6) Hx of mitral valve repair (7) Anxiety (8) Transaminitis Assessment/Plan Assessment Acute on chronic systolic heart failure Severe exertional dyspnea, slightly improved Bundle branch block Hypokalemia 2D echo EF 10-15% Likely liver congestion secondary to heart failure Management continue with IV diuretics, Metolazone monitor I/O appreciate card input continuous telemetry Continue BB/ASA/Dig/Metolazone will need ATTILA, if tolerated Noted with NSVT 11 beats 3 days ago. increased Coreg to 12.5 mg po bid Follow Mg level Replace potassium PO Follow LFTs Heparin for DVT prophylaxis Duonebs PRN Ativan PRN Labs in am D/W RN D/W pt Kajal Dahl MD Apr 02, 2016 14:47
--- NOTE | 2016-04-02 16:24 | HHI.GIFU ---
Subjective Remarks sitting up in bed, denies nausea, vomiting or abd pain (Flavio Elena) Objective Vitals I&O Vital Signs Date Time Temp Pulse Resp B/P Pulse Ox O2 Delivery O2 Flow Rate FiO2 04/02/16 12:26 97 04/02/16 12:00 97.9 85 18 102/56 98 04/02/16 08:00 96.1 93 18 112/66 97 04/02/16 04:00 97.2 95 16 108/65 95 04/02/16 00:00 97.2 80 16 116/81 97 04/01/16 20:00 97.5 108 16 98/58 95 04/01/16 20:00 93 04/01/16 16:55 94 I/O 04/01/16 04/01/16 04/01/16 04/02/16 04/02/16 04/02/16 07:00 15:00 23:00 07:00 15:00 23:00 Intake Total 6 ml 960 ml 3 ml Balance 6 ml 960 ml 3 ml Intake Oral 960 ml 3 ml IV Total 6 ml # Voids 4 5 3 Laboratory Laboratory Tests Test 04/02/16 08:33 White Blood Count 10.0 Red Blood Count 4.08 Hemoglobin 10.1 Hematocrit 32.2 Mean Corpuscular Volume 79.0 Mean Corpuscular Hemoglobin 24.6 Mean Corpuscular Hemoglobin 31.2 Concent Red Cell Distribution Width 19.0 Platelet Count 355 Mean Platelet Volume 8.1 Sodium Level 136 Potassium Level 3.2 Chloride Level 90 Carbon Dioxide Level 39.3 Anion Gap 7 Blood Urea Nitrogen 41 Creatinine 1.21 Estimat Glomerular Filtration 45 Rate Random Glucose 87 Calcium Level 8.6 Magnesium Level 2.0 Total Bilirubin 0.8 Direct Bilirubin 0.4 Indirect Bilirubin 0.4 Aspartate Amino Transf 148 (AST/SGOT) Alanine Aminotransferase 239 (ALT/SGPT) Alkaline Phosphatase 95 Total Protein 6.0 Albumin 2.9 Digoxin Level 0.9 Imaging Last Impressions Liver Ultrasound 03/29/16 0000 Signed Impressions: Service Date/Time: Tuesday, March 29, 2016 11:14 - CONCLUSION: 1. Mildly prominent liver. 2. Otherwise, unremarkable examination. Manfred Ricketts MD Chest X-Ray 03/28/16 [id number] Signed Impressions: Service Date/Time: Tuesday, March 29, 2016 00:19 - CONCLUSION: 1. Increased cardiomegaly and configuration of the cardiac silhouette suggests the possibility currently of pericardial effusion. 2. Small right pleural effusion. No overt failure. Ralph Garcia MD Physical Exam HEENT: Normocephalic; atraumatic; no jaundice. CHEST: Chest is clear to auscultation and percussion. CARDIAC: RRR, Murmur ABDOMEN: Soft, nondistended, nontender; no hepatosplenomegaly; bowel sounds are present in all four quadrants. EXTREMITIES: No clubbing, cyanosis, or edema. SKIN: Normal; no rash; no jaundice. OUTSIDE RIGGER: No focal deficits; alert and oriented times three. (Flavio Elena) Assessment and Plan Plan ASSESSMENT: - Elevated LFTs in patient with CHF and valvular heart disease, EF ~ 10-15%. LFTs improving Liver Ultrasound (03/29/16)---> 1. Mildly prominent liver. 2. Otherwise, unremarkable examination. Hepatitis negative. Most likely this is congestive hepatopathy. PLAN: - MITCH, heart healthy - Monitor LFTs - Recommend treating her congestive heart failure and hopefully we'll see a decline in her liver enzymes - Further recommendations shall depend on her hospital course - Pt seen and examined by Dr. Montes and myself and this note is written on his behalf (Flavio Elena) Physician Comments Patient seen and examined Agree with above Continue with current supportive care Monitor labs (Dayo Montes MD) Flavio Elena Apr 02, 2016 16:24 Dayo Montes MD Apr 02, 2016 18:06
[2016-04-02] MEDS: LORazepam 0.5 MG TAB PO PRN (18:33)
[2016-04-02] MEDS: ATORVASTATIN 40 MG TAB PO SCH (20:22)
[2016-04-02] MEDS: ONDANSETRON HCL 4 MG/2 ML VIAL IVP PRN (22:57)
[2016-04-03] VITALS (9 sets, daily range): BP systolic 94–110; BP diastolic 54–66; PULSE 73–96; RESP 16–20; TEMP 96.4–98.1; O2SAT 95–100
[2016-04-03 08:16] LABS: BASOPHIL # 0.2 TH/MM3 (0-0.2); BASOPHIL % 1.6 % (0.0-2.0); EOSINOPHIL # 0.1 TH/MM3 (0-0.4); EOSINOPHIL % 0.5 % (0.0-4.0); HEMATOCRIT 30.4 % (35.0-46.0); LYMPH % 14.1 % (9.0-44.0); LYMPHOCYTE # 1.6 TH/MM3 (1.0-4.8); MEAN CORPUSCULAR HEMOGLOBIN 24.5 PG (27.0-34.0); MEAN CORPUSCULAR HGB CONC 31.4 % (32.0-36.0); MONO % 12.8 % (0.0-8.0); PLATELET COUNT 328 TH/MM3 (150-450); RED CELL DISTRIBUTION WIDTH 19.2 % (11.6-17.2); WHITE BLOOD COUNT 11.2 TH/MM3 (4.0-11.0)
[2016-04-03 08:36] LABS: BICARBONATE 34.4 MEQ/L (21.0-32.0); INDIRECT BILIRUBIN 0.4 MG/DL (0.0-0.8); POTASSIUM 3.8 MEQ/L (3.5-5.1); TOTAL BILIRUBIN ADULT 0.7 MG/DL (0.2-1.0)
[2016-04-03 08:47] LABS: HEMO FLAGS AUTO DIFF
[2016-04-03] MEDS: HEPARIN SODIUM - SQ 10,000 UNITS/ML VIAL SQ SCH ×2 (09:13→20:04)
[2016-04-03] MEDS: CARVEDILOL 12.5 MG TAB PO SCH ×2 (09:13→21:00)
[2016-04-03] MEDS: POTASSIUM CHLORIDE 10 MEQ CONTROLLED RELEASE TAB PO SCH ×2 (09:13→19:54)
[2016-04-03] MEDS: VITAMIN B COMPLEX/VIT C TAB PO SCH (09:14)
[2016-04-03] MEDS: ASCORBIC ACID 500 MG TAB PO SCH (09:14)
[2016-04-03] MEDS: MULTIVITAMIN TAB PO SCH (09:14)
[2016-04-03] MEDS: SERTRALINE HCL 50 MG TAB PO SCH (09:14)
[2016-04-03] MEDS: FUROSEMIDE 40 MG/4 ML VIAL IV PUSH SCH ×2 (09:14→17:47)
[2016-04-03] MEDS: METOLAZONE 2.5 MG TAB PO SCH (09:14)
[2016-04-03] MEDS: ASPIRIN EC 81 MG TABEC PO SCH (09:14)
[2016-04-03] MEDS: SODIUM CHLORIDE 0.9% FLUSH 5 ML FLUSH FLUSH SCH ×2 (09:15→22:17)
[2016-04-03] MEDS: DIGOXIN 0.125 MG TAB PO SCH (09:19)
[2016-04-03] MEDS: LORazepam 0.5 MG TAB PO PRN ×3 (09:30→22:14)
[2016-04-03] MEDS: ONDANSETRON HCL 4 MG/2 ML VIAL IVP PRN (11:53)
[2016-04-03 12:29] LABS: BANDS 2 % (0-6); CORRECTED NUCLEATED RBC 1 /100 WBC (0-0); EOSINOPHILS 1 % (0-4); NEUTROPHIL # MANUAL DIFF 8.3 TH/MM3 (1.8-7.7); OVALOCYTES 1+ (NORMAL); PLATELET ESTIMATE SMEAR NORMAL (NORMAL); PLATELET MORPHOLOGY NORMAL (NORMAL); POLYS (SEG NEUTROPHILS) 72 % (16-70); SCAN/DIFF FINAL DIFF MANUAL; WBC DIFF SAMPLE 100
[2016-04-03 12:30] LABS: POLYCHROMASIA 2.4 % (0.0-1.9)
[2016-04-03] MEDS: RESP: ALBUTEROL 2.5 MG/IPRATROPIUM 0.5 MG NEB (PRN) NEB (13:52)
--- NOTE | 2016-04-03 17:56 | HHI.PR ---
Subjective Subjective Remarks Mild exertional dyspnea No chest pain Nausea, but appetite good Up in chair Review of Systems Constitutional Constitutional: Weakness (generalized) Constitutional Remarks 10 point ROS done. Positives noted shortness of breath mild wheezing, generalized weakness, nausea other systems unremarkable or negative Pulmonary Respiratory: Coughing, Shortness of Breath (exertional), Wheezing (mild) GI/Abdomen GI/Abdominal Exam: Nausea Psychiatric Psychiatric: Normal Mood Vitals/Results Intake & Output 04/02/16 04/02/16 04/03/16 15:00 23:00 07:00 Intake Total 3 ml 240 ml 240 ml Balance 3 ml 240 ml 240 ml Intake Oral 3 ml 240 ml 240 ml # Voids 3 2 2 # Bowel Movements 0 0 Vital Signs Vital Signs Date Time Temp Pulse Resp B/P Pulse Ox O2 Delivery O2 Flow Rate FiO2 04/03/16 12:00 98.0 76 20 102/64 98 04/03/16 08:00 98.1 88 18 103/66 97 04/03/16 04:00 96.7 96 17 101/60 96 04/03/16 00:00 96.4 84 18 110/59 100 04/02/16 20:39 82 04/02/16 20:00 96.0 86 18 106/57 99 CBC/BMP: 04/03/16 0730 04/03/16 0730 Lab Results Laboratory Tests Test 04/03/16 07:30 White Blood Count 11.2 TH/MM3 Red Blood Count 3.90 MIL/MM3 Hemoglobin 9.6 GM/DL Hematocrit 30.4 % Mean Corpuscular Volume 78.0 FL Mean Corpuscular Hemoglobin 24.5 PG Mean Corpuscular Hemoglobin 31.4 % Concent Red Cell Distribution Width 19.2 % Platelet Count 328 TH/MM3 Mean Platelet Volume 7.9 FL Neutrophils (%) (Auto) 71.0 % Lymphocytes (%) (Auto) 14.1 % Monocytes (%) (Auto) 12.8 % Eosinophils (%) (Auto) 0.5 % Basophils (%) (Auto) 1.6 % Neutrophils # (Auto) 8.0 TH/MM3 Lymphocytes # (Auto) 1.6 TH/MM3 Monocytes # (Auto) 1.4 TH/MM3 Eosinophils # (Auto) 0.1 TH/MM3 Basophils # (Auto) 0.2 TH/MM3 CBC Comment AUTO DIFF Differential Total Cells 100 Counted Neutrophils % (Manual) 72 % Band Neutrophils % 2 % Lymphocytes % 13 % Monocytes % 12 % Eosinophils % 1 % Neutrophils # (Manual) 8.3 TH/MM3 Nucleated Red Blood Cells 1 /100 WBC Differential Comment FINAL DIFF MANUAL Platelet Estimate NORMAL Platelet Morphology Comment NORMAL Polychromasia 2.4 % Ovalocytes 1+ Sodium Level 131 MEQ/L Potassium Level 3.8 MEQ/L Chloride Level 86 MEQ/L Carbon Dioxide Level 34.4 MEQ/L Anion Gap 11 MEQ/L Blood Urea Nitrogen 51 MG/DL Creatinine 1.63 MG/DL Estimat Glomerular Filtration 32 ML/MIN Rate Random Glucose 99 MG/DL Calcium Level 8.2 MG/DL Phosphorus Level 3.7 MG/DL Magnesium Level 2.0 MG/DL Total Bilirubin 0.7 MG/DL Direct Bilirubin 0.3 MG/DL Indirect Bilirubin 0.4 MG/DL Aspartate Amino Transf 108 U/L (AST/SGOT) Alanine Aminotransferase 197 U/L (ALT/SGPT) Alkaline Phosphatase 113 U/L Total Protein 5.7 GM/DL Albumin 2.6 GM/DL Current Medications Active Medications Carvedilol (Coreg) 25 mg Q12HR PO Last administered on 04/03/16 09:13; Admin Dose 25 MG; Start 04/02/16 at 21:00 Digoxin (Lanoxin) 0.125 mg Q48H PO Last administered on 04/03/16 09:19; Admin Dose 0.125 MG; Start 04/03/16 at 09:00 Potassium Chloride (KCl) 40 meq BID PO Last administered on 04/03/16 09:13; Admin Dose 40 MEQ; Start 04/02/16 at 21:00 Physical Exam General General Appearance: Well Developed, Well Nourished, No Acute Distress, Comfortable Eyes Eye Exam: Pupils Equal, Pupils Reactive Ears & Nose Ears & Nose Exam: Nasal Mucosa [place] Throat Throat Exam: Oral Mucosa [place] & Moist Neck Neck Exam: Neck Supple, Trachea Midline Pulmonary Resp Exam: Clear Bilaterally, Diminished Breath Sounds Resp Remarks Expiratory wheeze Cardiology CV Exam: Regular, Murmur Gastrointestinal/Abdomen GI Exam: Soft, Non-Tender, Bowel Sounds Present, Non-Distended GI Remarks Nausea but no emesis Musculoskeletal MS Exam: Normal Tone Integumentary Skin Exam: Warm, Dry, Intact Extremeties Extremities Exam: No Edema, Pedal Pulses Palpable Neurologic Neuro Exam: Alert, Awake, Oriented, Speech Clear, Moving All Extremities, No Focal Deficits Psychiatric Psych Exam: Appropriate Responses VTE Prophylaxis VTE Prophylaxis Device: SCDs Assessment/Plan Problem List: (1) CHF (congestive heart failure) (2) CAD (coronary artery disease) (3) Cardiomyopathy (4) History of COPD (5) Pericardial effusion without cardiac tamponade (6) Hx of mitral valve repair (7) Anxiety (8) Transaminitis Assessment/Plan Acute on chronic systolic heart failure Severe exertional dyspnea, slightly improved Bundle branch block stable Hypokalemia resolved 2D echo EF 10-15% Likely liver congestion secondary to heart failure Hyponatremia Leukocytosis mild Nausea, probable secondary to heart failure Management Switch IV Lasix to 20 mg by mouth twice a day. Add Aldactone 25 mg daily Physical therapy to eval needs for discharge planning. Probable SNF rehabilitation tomorrow Sauloo ruiz. Every 6 hours scheduled monitor I/O appreciate card input continuous employee communications specialist labs, recheck in a.m. CBC BMP Heparin for DVT prophylaxis D[place]revon PRN Discussed plan of care with . D/W RN D/W pt Barndi Will Apr 03, 2016 17:56
[2016-04-03] MEDS: SPIRONOLACTONE 25 MG TAB PO SCH (19:53)
[2016-04-03] MEDS: FUROSEMIDE 20 MG TAB PO SCH (19:53)
--- NOTE | 2016-04-03 19:56 | HHI.GIFU ---
Subjective Remarks Patient laying comfortably in bed feeling better no new complaints Objective Vitals I&O Vital Signs Date Time Temp Pulse Resp B/P Pulse Ox O2 Delivery O2 Flow Rate FiO2 04/03/16 18:00 88 04/03/16 12:00 98.0 76 20 102/64 98 04/03/16 08:00 98.1 88 18 103/66 97 04/03/16 04:00 96.7 96 17 101/60 96 04/03/16 00:00 96.4 84 18 110/59 100 04/02/16 20:39 82 04/02/16 20:00 96.0 86 18 106/57 99 I/O 04/02/16 04/02/16 04/02/16 04/03/16 04/03/16 04/03/16 07:00 15:00 23:00 07:00 15:00 23:00 Intake Total 960 ml 3 ml 240 ml 240 ml Balance 960 ml 3 ml 240 ml 240 ml Intake Oral 960 ml 3 ml 240 ml 240 ml # Voids 5 3 2 2 # Bowel Movements 0 0 Laboratory Laboratory Tests Test 04/03/16 07:30 White Blood Count 11.2 Red Blood Count 3.90 Hemoglobin 9.6 Hematocrit 30.4 Mean Corpuscular Volume 78.0 Mean Corpuscular Hemoglobin 24.5 Mean Corpuscular Hemoglobin 31.4 Concent Red Cell Distribution Width 19.2 Platelet Count 328 Mean Platelet Volume 7.9 Neutrophils (%) (Auto) 71.0 Lymphocytes (%) (Auto) 14.1 Monocytes (%) (Auto) 12.8 Eosinophils (%) (Auto) 0.5 Basophils (%) (Auto) 1.6 Neutrophils # (Auto) 8.0 Lymphocytes # (Auto) 1.6 Monocytes # (Auto) 1.4 Eosinophils # (Auto) 0.1 Basophils # (Auto) 0.2 CBC Comment AUTO DIFF Differential Total Cells 100 Counted Neutrophils % (Manual) 72 Band Neutrophils % 2 Lymphocytes % 13 Monocytes % 12 Eosinophils % 1 Neutrophils # (Manual) 8.3 Nucleated Red Blood Cells 1 Differential Comment FINAL DIFF MANUAL Platelet Estimate NORMAL Platelet Morphology Comment NORMAL Polychromasia 2.4 Ovalocytes 1+ Sodium Level 131 Potassium Level 3.8 Chloride Level 86 Carbon Dioxide Level 34.4 Anion Gap 11 Blood Urea Nitrogen 51 Creatinine 1.63 Estimat Glomerular Filtration 32 Rate Random Glucose 99 Calcium Level 8.2 Phosphorus Level 3.7 Magnesium Level 2.0 Total Bilirubin 0.7 Direct Bilirubin 0.3 Indirect Bilirubin 0.4 Aspartate Amino Transf 108 (AST/SGOT) Alanine Aminotransferase 197 (ALT/SGPT) Alkaline Phosphatase 113 Total Protein 5.7 Albumin 2.6 Physical Exam HEENT: Normocephalic; atraumatic; no jaundice. CHEST: Chest is clear to auscultation and percussion. CARDIAC: RRR, Murmur ABDOMEN: Soft, nondistended, nontender; no hepatosplenomegaly; bowel sounds are present in all four quadrants. EXTREMITIES: No clubbing, cyanosis, or edema. SKIN: Normal; no rash; no jaundice. FLOOR INSTALLER: No focal deficits; alert and oriented times three. Assessment and Plan Plan ASSESSMENT: - Elevated LFTs in patient with CHF and valvular heart disease, EF ~ 10-15%. LFTs improving Liver Ultrasound (03/29/16)---> 1. Mildly prominent liver. 2. Otherwise, unremarkable examination. Hepatitis negative. Most likely this is congestive hepatopathy. PLAN: - MITCH, heart healthy - Monitor LFTs -No further recommendations from a GI standpoint at this point in time We will sign off Dayo Montes MD Apr 03, 2016 19:55
[2016-04-03] MEDS: ATORVASTATIN 40 MG TAB PO SCH (20:04)
[2016-04-03] MEDS: RESP: ALBUTEROL 2.5 MG/IPRATROPIUM 0.5 MG NEB (SCH) NEB (21:34)
[2016-04-04] VITALS (9 sets, daily range): BP systolic 91–110; BP diastolic 54–66; PULSE 76–90; RESP 15–18; TEMP 96.2–97.8; O2SAT 95–100
[2016-04-04] MEDS: ONDANSETRON HCL 4 MG/2 ML VIAL IVP PRN (01:15)
[2016-04-04] MEDS: LORazepam 0.5 MG TAB PO PRN (03:08)
[2016-04-04] MEDS: RESP: ALBUTEROL 2.5 MG/IPRATROPIUM 0.5 MG NEB (SCH) NEB ×4 (03:39→19:14)
[2016-04-04] MEDS: SCOPOLAMINE 1.5 MG PATCH TD SCH (03:41)
[2016-04-04] MEDS: HEPARIN SODIUM - SQ 10,000 UNITS/ML VIAL SQ SCH ×2 (09:00→22:39)
[2016-04-04] MEDS: FUROSEMIDE 20 MG TAB PO SCH ×2 (09:00→17:34)
--- NOTE | 2016-04-04 10:33 | HHI.PR ---
Subjective Interval History Patient has nausea last time she couldn't sleep now she is feeling sleepy and is still occasional nauseous feeling. did not eat this morning Feeling tired and weak No other complaint Review of system for 12 point system otherwise unremarkable Review of Systems Constitutional Constitutional: Weakness (generalized) Pulmonary Respiratory: Coughing, Shortness of Breath (exertional), Wheezing (mild) GI/Abdomen GI/Abdominal Exam: Nausea Psychiatric Psychiatric: Normal Mood Vitals/Results Intake & Output 04/03/16 04/03/16 04/04/16 15:00 23:00 07:00 Intake Total 960 ml 400 ml 250 ml Balance 960 ml 400 ml 250 ml Intake Oral 960 ml 400 ml 250 ml # Voids 4 1 2 # Bowel Movements 1 0 Vital Signs Vital Signs Date Time Temp Pulse Resp B/P Pulse Ox O2 Delivery O2 Flow Rate FiO2 04/04/16 08:00 97.0 90 18 105/66 98 04/04/16 04:00 97.1 82 18 110/64 95 04/04/16 00:09 97.7 80 18 91/54 95 04/03/16 22:18 80 97/57 04/03/16 21:01 80 04/03/16 20:00 97.2 96 16 94/54 95 04/03/16 18:00 88 04/03/16 14:00 96.9 73 18 108/64 97 04/03/16 12:00 98.0 76 20 102/64 98 CBC/BMP: 04/03/16 0730 04/03/16 0730 Physical Exam General General Appearance: Well Developed, Well Nourished, No Acute Distress, Comfortable Eyes Eye Exam: Pupils Equal, Pupils Reactive Ears & Nose Ears & Nose Exam: Nasal Mucosa [place] Throat Throat Exam: Oral Mucosa [place] & Moist Neck Neck Exam: Neck Supple, Trachea Midline Pulmonary Resp Exam: Clear Bilaterally, Breath Sounds Equal, No Distress Cardiology CV Exam: Regular, Murmur Gastrointestinal/Abdomen GI Exam: Soft, Non-Tender, Bowel Sounds Present, Positive Bowel Movement, Non- Distended Musculoskeletal MS Exam: Normal Tone Integumentary Skin Exam: Warm, Dry, Intact Extremeties Extremities Exam: No Edema, Pedal Pulses Palpable Neurologic Neuro Exam: Alert, Awake, Oriented, Speech Clear, Moving All Extremities, No Focal Deficits Psychiatric Psych Exam: Appropriate Responses VTE Prophylaxis VTE Prophylaxis Device: SCDs Assessment/Plan Problem List: (1) CHF (congestive heart failure) (2) CAD (coronary artery disease) (3) Cardiomyopathy (4) History of COPD (5) Pericardial effusion without cardiac tamponade (6) Hx of mitral valve repair (7) Anxiety (8) Transaminitis Assessment/Plan Acute on chronic systolic heart failure Severe exertional dyspnea, improving Bundle branch block stable Hypokalemia resolved 2D echo EF 10-15% Likely liver congestion secondary to heart failure Hyponatremia Leukocytosis mild Nausea, probable secondary to heart failure Management Continue by mouth Lasix to 20 mg by mouth twice a day. Add Aldactone 25 mg daily. Hold Zaroxolyn Physical therapy to eval needs for discharge planning. Probable SNF rehabilitation once stable Nausea will monitor Labs reviewed Renal insufficiency worsening will monitor after holding Zaroxolyn Duo nebs. Every 6 hours scheduled monitor I/O appreciate card input continuous inseam leveler labs, recheck in a.m. CBC BMP Heparin for DVT prophylaxis Duonebs PRN Medications reviewed Previous notes reviewed Labs and radiological data reviewed Total time spentmore than 35 min n management of this pt Discussed with RN Problem Qualifiers (1) CHF (congestive heart failure): Qualified Code: I50.23 - Acute on chronic systolic congestive heart failure (2) CAD (coronary artery disease): (3) Cardiomyopathy: Qualified Code: I25.5 - Ischemic cardiomyopathy Lori Hughes MD Apr 04, 2016 10:07
[2016-04-04] MEDS: MULTIVITAMIN TAB PO SCH (10:41)
[2016-04-04] MEDS: VITAMIN B COMPLEX/VIT C TAB PO SCH (10:41)
[2016-04-04] MEDS: SODIUM CHLORIDE 0.9% FLUSH 5 ML FLUSH FLUSH SCH ×2 (10:41→22:40)
[2016-04-04] MEDS: ASCORBIC ACID 500 MG TAB PO SCH (10:42)
[2016-04-04] MEDS: CARVEDILOL 12.5 MG TAB PO SCH ×2 (10:42→22:40)
[2016-04-04] MEDS: SERTRALINE HCL 50 MG TAB PO SCH (10:42)
[2016-04-04] MEDS: ASPIRIN EC 81 MG TABEC PO SCH (10:42)
[2016-04-04] MEDS: POTASSIUM CHLORIDE 10 MEQ CONTROLLED RELEASE TAB PO SCH ×2 (10:42→22:40)
[2016-04-04] MEDS: SPIRONOLACTONE 25 MG TAB PO SCH (10:43)
[2016-04-04] MEDS: ATORVASTATIN 40 MG TAB PO SCH (22:39)
[2016-04-05] VITALS (9 sets, daily range): BP systolic 91–126; BP diastolic 53–70; PULSE 70–80; RESP 15–20; TEMP 96.3–98; O2SAT 97–99
[2016-04-05] MEDS: RESP: ALBUTEROL 2.5 MG/IPRATROPIUM 0.5 MG NEB (SCH) NEB ×4 (03:38→20:38)
[2016-04-05 05:51] LABS: HEMATOCRIT 31.1 % (35.0-46.0); MEAN CELL VOLUME 78.2 FL (80.0-100.0); MEAN CORPUSCULAR HEMOGLOBIN 24.9 PG (27.0-34.0); MEAN CORPUSCULAR HGB CONC 31.9 % (32.0-36.0); PLATELET COUNT 284 TH/MM3 (150-450); RED BLOOD COUNT 3.97 MIL/MM3 (4.00-5.30); RED CELL DISTRIBUTION WIDTH 19.2 % (11.6-17.2); WHITE BLOOD COUNT 9.2 TH/MM3 (4.0-11.0)
[2016-04-05 05:58] LABS: REVIEW FLAG FINAL
[2016-04-05 06:22] LABS: BICARBONATE 28.4 MEQ/L (21.0-32.0); POTASSIUM 4.9 MEQ/L (3.5-5.1)
[2016-04-05] MEDS: MULTIVITAMIN TAB PO SCH (08:31)
[2016-04-05] MEDS: HEPARIN SODIUM - SQ 10,000 UNITS/ML VIAL SQ SCH ×2 (08:31→21:03)
[2016-04-05] MEDS: FUROSEMIDE 20 MG TAB PO SCH (08:31)
[2016-04-05] MEDS: SERTRALINE HCL 50 MG TAB PO SCH (08:31)
[2016-04-05] MEDS: ASCORBIC ACID 500 MG TAB PO SCH (08:31)
[2016-04-05] MEDS: CARVEDILOL 12.5 MG TAB PO SCH ×2 (08:32→21:02)
[2016-04-05] MEDS: VITAMIN B COMPLEX/VIT C TAB PO SCH (08:32)
[2016-04-05] MEDS: SPIRONOLACTONE 25 MG TAB PO SCH (08:32)
[2016-04-05] MEDS: SODIUM CHLORIDE 0.9% FLUSH 5 ML FLUSH FLUSH SCH ×2 (08:32→21:03)
[2016-04-05] MEDS: ASPIRIN EC 81 MG TABEC PO SCH (08:32)
[2016-04-05] MEDS: POTASSIUM CHLORIDE 10 MEQ CONTROLLED RELEASE TAB PO SCH (08:32)
[2016-04-05] MEDS: DIGOXIN 0.125 MG TAB PO SCH (08:32)
--- NOTE | 2016-04-05 10:13 | HHI.PR ---
Subjective Interval History Patient is feeling tired and weak No other complaint Review of system for 10 point system otherwise unremarkable Review of Systems Constitutional Constitutional: Weakness (generalized) Pulmonary Respiratory: Coughing, Shortness of Breath (exertional), Wheezing (mild) GI/Abdomen GI/Abdominal Exam: Nausea Psychiatric Psychiatric: Normal Mood Vitals/Results Intake & Output 04/04/16 04/04/16 04/05/16 15:00 23:00 07:00 Intake Total 960 ml 240 ml 480 ml Balance 960 ml 240 ml 480 ml Intake Oral 960 ml 240 ml 480 ml # Voids 2 1 2 # Bowel Movements 1 Vital Signs Vital Signs Date Time Temp Pulse Resp B/P Pulse Ox O2 Delivery O2 Flow Rate FiO2 04/05/16 07:58 97 21 04/05/16 07:54 96.8 77 20 103/63 99 04/05/16 04:00 96.4 76 15 91/53 99 04/05/16 00:00 96.5 77 15 94/56 97 04/04/16 20:07 77 04/04/16 20:00 96.2 76 15 104/61 98 04/04/16 17:30 79 101/57 04/04/16 16:00 96.5 76 18 97/55 100 04/04/16 12:00 97.8 82 16 96/56 98 CBC/BMP: 04/05/16 0510 04/05/16 0510 Lab Results Laboratory Tests Test 04/05/16 05:10 White Blood Count 9.2 TH/MM3 Red Blood Count 3.97 MIL/MM3 Hemoglobin 9.9 GM/DL Hematocrit 31.1 % Mean Corpuscular Volume 78.2 FL Mean Corpuscular Hemoglobin 24.9 PG Mean Corpuscular Hemoglobin 31.9 % Concent Red Cell Distribution Width 19.2 % Platelet Count 284 TH/MM3 Mean Platelet Volume 8.4 FL Sodium Level 133 MEQ/L Potassium Level 4.9 MEQ/L Chloride Level 93 MEQ/L Carbon Dioxide Level 28.4 MEQ/L Anion Gap 12 MEQ/L Blood Urea Nitrogen 62 MG/DL Creatinine 1.80 MG/DL Estimat Glomerular Filtration 28 ML/MIN Rate Random Glucose 92 MG/DL Calcium Level 8.7 MG/DL Physical Exam General General Appearance: Well Developed, Well Nourished, No Acute Distress, Comfortable Eyes Eye Exam: Pupils Equal, Pupils Reactive Ears & Nose Ears & Nose Exam: Nasal Mucosa [place] Throat Throat Exam: Oral Mucosa [place] & Moist Neck Neck Exam: Neck Supple, Trachea Midline Pulmonary Resp Exam: Clear Bilaterally, Breath Sounds Equal, No Distress Cardiology CV Exam: Regular, Murmur Gastrointestinal/Abdomen GI Exam: Soft, Non-Tender, Bowel Sounds Present, Positive Bowel Movement, Non- Distended Musculoskeletal MS Exam: Normal Tone Integumentary Skin Exam: Warm, Dry, Intact Extremeties Extremities Exam: No Edema, Pedal Pulses Palpable Neurologic Neuro Exam: Alert, Awake, Oriented, Speech Clear, Moving All Extremities, No Focal Deficits Psychiatric Psych Exam: Appropriate Responses VTE Prophylaxis VTE Prophylaxis Device: SCDs Assessment/Plan Problem List: (1) CHF (congestive heart failure) (2) CAD (coronary artery disease) (3) Cardiomyopathy (4) History of COPD (5) Pericardial effusion without cardiac tamponade (6) Hx of mitral valve repair (7) Anxiety (8) Transaminitis Assessment/Plan Acute on chronic systolic heart failure Severe exertional dyspnea, improving Bundle branch block stable Hypokalemia resolved 2D echo EF 10-15% Likely liver congestion secondary to heart failure Hyponatremia Leukocytosis mild Nausea, probable secondary to heart failure Management Hold Lasix Aldactone and Zaroxolyn Hold potassium BMP tomorrow am Physical therapy to eval needs for discharge planning. Probable SNF rehabilitation once stable Nausea will monitor Labs reviewed Renal insufficiency worsening will monitor Duo nebs. Every 6 hours scheduled monitor I/O appreciate card input continuous hair blender labs, recheck in a.m. CBC BMP Heparin for DVT prophylaxis Duonebs PRN Medications reviewed Previous notes reviewed Labs and notes reviewed Discussed with patient Discussed with RN Problem Qualifiers (1) CHF (congestive heart failure): Qualified Code: I50.23 - Acute on chronic systolic congestive heart failure (2) CAD (coronary artery disease): (3) Cardiomyopathy: Qualified Code: I25.5 - Ischemic cardiomyopathy Lori Hughes MD Apr 05, 2016 10:13
[2016-04-05] MEDS: LORazepam 0.5 MG TAB PO PRN ×2 (11:55→21:02)
[2016-04-05] MEDS: ONDANSETRON HCL 4 MG/2 ML VIAL IVP PRN (18:58)
[2016-04-05] MEDS: ATORVASTATIN 40 MG TAB PO SCH (21:03)
[2016-04-06] VITALS (9 sets, daily range): BP systolic 95–114; BP diastolic 58–78; PULSE 76–86; RESP 16; TEMP 96.3–97.4; O2SAT 98–100
[2016-04-06] MEDS: LORazepam 0.5 MG TAB PO PRN ×2 (03:39→09:10)
[2016-04-06] MEDS: RESP: ALBUTEROL 2.5 MG/IPRATROPIUM 0.5 MG NEB (SCH) NEB ×4 (04:09→21:22)
[2016-04-06 08:55] LABS: BICARBONATE 30.9 MEQ/L (21.0-32.0); POTASSIUM 4.7 MEQ/L (3.5-5.1)
[2016-04-06] MEDS: HEPARIN SODIUM - SQ 10,000 UNITS/ML VIAL SQ SCH ×2 (09:00→20:19)
[2016-04-06] MEDS: VITAMIN B COMPLEX/VIT C TAB PO SCH (09:03)
[2016-04-06] MEDS: ASPIRIN EC 81 MG TABEC PO SCH (09:03)
[2016-04-06] MEDS: SERTRALINE HCL 50 MG TAB PO SCH (09:03)
[2016-04-06] MEDS: MULTIVITAMIN TAB PO SCH (09:03)
[2016-04-06] MEDS: ASCORBIC ACID 500 MG TAB PO SCH (09:03)
[2016-04-06 09:09] LABS: DIGOXIN 1.2 NG/ML (0.8-2.0)
[2016-04-06] MEDS: SODIUM CHLORIDE 0.9% FLUSH 5 ML FLUSH FLUSH SCH ×2 (09:11→20:19)
--- NOTE | 2016-04-06 13:14 | HHI.PR ---
Subjective Interval History still feeling tired Some shortness of breath on exertion No other complaint Review of systems a 10 point system otherwise unremarkable Review of Systems Constitutional Constitutional: Weakness (generalized) Pulmonary Respiratory: Coughing, Shortness of Breath (exertional), Wheezing (mild) GI/Abdomen GI/Abdominal Exam: Nausea Psychiatric Psychiatric: Normal Mood Vitals/Results Intake & Output 04/05/16 04/05/16 04/06/16 15:00 23:00 07:00 Intake Total 450 ml 250 ml Balance 450 ml 250 ml Intake Oral 450 ml 250 ml # Voids 2 2 # Bowel Movements 0 0 Vital Signs Vital Signs Date Time Temp Pulse Resp B/P Pulse Ox O2 Delivery O2 Flow Rate FiO2 04/06/16 12:00 96.3 86 16 114/78 98 04/06/16 09:48 98 04/06/16 08:00 96.6 76 16 100/71 100 04/06/16 04:11 99 21 04/06/16 04:00 97.4 78 16 98/60 98 04/06/16 00:00 97.4 80 16 95/64 98 04/05/16 20:04 77 04/05/16 20:00 96.3 80 16 109/59 98 04/05/16 16:00 97.9 75 18 105/58 97 CBC/BMP: 04/05/16 0510 04/06/16 0745 Lab Results Laboratory Tests Test 04/06/16 07:45 Sodium Level 133 MEQ/L Potassium Level 4.7 MEQ/L Chloride Level 92 MEQ/L Carbon Dioxide Level 30.9 MEQ/L Anion Gap 10 MEQ/L Blood Urea Nitrogen 55 MG/DL Creatinine 1.76 MG/DL Estimat Glomerular Filtration 29 ML/MIN Rate Random Glucose 95 MG/DL Calcium Level 8.6 MG/DL Digoxin Level 1.2 NG/ML Physical Exam General General Appearance: Well Developed, Well Nourished, No Acute Distress, Comfortable Eyes Eye Exam: Pupils Equal, Pupils Reactive Ears & Nose Ears & Nose Exam: Nasal Mucosa [place] Throat Throat Exam: Oral Mucosa [place] & Moist Neck Neck Exam: Neck Supple, Trachea Midline Pulmonary Resp Exam: Breath Sounds Equal, No Distress Resp Remarks Slight decreased air entry bibasally Cardiology CV Exam: Regular, Murmur Gastrointestinal/Abdomen GI Exam: Soft, Non-Tender, Bowel Sounds Present, Positive Bowel Movement, Non- Distended Musculoskeletal MS Exam: Normal Tone Integumentary Skin Exam: Warm, Dry, Intact Extremeties Extremities Exam: No Edema, Pedal Pulses Palpable Neurologic Neuro Exam: Alert, Awake, Oriented, Speech Clear, Moving All Extremities, No Focal Deficits Psychiatric Psych Exam: Appropriate Responses VTE Prophylaxis VTE Prophylaxis Device: SCDs Assessment/Plan Problem List: (1) CHF (congestive heart failure) (2) CAD (coronary artery disease) (3) Cardiomyopathy (4) History of COPD (5) Pericardial effusion without cardiac tamponade (6) Hx of mitral valve repair (7) Anxiety (8) Transaminitis Assessment/Plan Acute on chronic systolic heart failure Severe exertional dyspnea, improving Bundle branch block stable Hypokalemia resolved 2D echo EF 10-15% Likely liver congestion secondary to heart failure Hyponatremia Leukocytosis mild Nausea, probable secondary to heart failure Management Continue holding Lasix Aldactone and Zaroxolyn Continue holding potassium BMP reviewed BMP tomorrow am Physical therapy to eval needs for discharge planning. Probable SNF rehabilitation once stable Nausea will monitor Labs reviewed Renal insufficiency improving will monitor Duo nebs. Every 6 hours scheduled monitor I/O appreciate card input continuous telemetry Heparin for DVT prophylaxis Duonebs PRN Medications reviewed Previous notes reviewed Labs and notes reviewed Discussed with patient Discussed with RN Problem Qualifiers (1) CHF (congestive heart failure): Qualified Code: I50.23 - Acute on chronic systolic congestive heart failure (2) CAD (coronary artery disease): (3) Cardiomyopathy: Qualified Code: I25.5 - Ischemic cardiomyopathy Lori Hughes MD Apr 06, 2016 13:14
[2016-04-06] MEDS: ATORVASTATIN 40 MG TAB PO SCH (20:19)
[2016-04-06] MEDS: CARVEDILOL 12.5 MG TAB PO SCH (20:19)
[2016-04-07] VITALS (8 sets, daily range): BP systolic 99–115; BP diastolic 51–65; PULSE 79–88; RESP 16–20; TEMP 95.8–97.2; O2SAT 93–99
[2016-04-07] MEDS: LORazepam 0.5 MG TAB PO PRN ×2 (01:31→08:07)
[2016-04-07] MEDS: RESP: ALBUTEROL 2.5 MG/IPRATROPIUM 0.5 MG NEB (SCH) NEB ×5 (03:52→19:42)
[2016-04-07] MEDS: SCOPOLAMINE 1.5 MG PATCH TD SCH (04:08)
[2016-04-07 07:20] LABS: MEAN CELL VOLUME 77.2 FL (80.0-100.0); MEAN CORPUSCULAR HEMOGLOBIN 24.4 PG (27.0-34.0); MEAN CORPUSCULAR HGB CONC 31.5 % (32.0-36.0); PLATELET COUNT 299 TH/MM3 (150-450); RED BLOOD COUNT 3.88 MIL/MM3 (4.00-5.30); RED CELL DISTRIBUTION WIDTH 19.5 % (11.6-17.2); WHITE BLOOD COUNT 8.1 TH/MM3 (4.0-11.0)
[2016-04-07 07:24] LABS: REVIEW FLAG FINAL
[2016-04-07 07:48] LABS: BICARBONATE 27.7 MEQ/L (21.0-32.0); POTASSIUM 3.9 MEQ/L (3.5-5.1)
[2016-04-07] MEDS: DIGOXIN 0.125 MG TAB PO SCH (08:07)
[2016-04-07] MEDS: ASPIRIN EC 81 MG TABEC PO SCH (08:08)
[2016-04-07] MEDS: VITAMIN B COMPLEX/VIT C TAB PO SCH (08:08)
[2016-04-07] MEDS: ASCORBIC ACID 500 MG TAB PO SCH (08:08)
[2016-04-07] MEDS: SERTRALINE HCL 50 MG TAB PO SCH (08:08)
[2016-04-07] MEDS: MULTIVITAMIN TAB PO SCH (08:08)
[2016-04-07] MEDS: HEPARIN SODIUM - SQ 10,000 UNITS/ML VIAL SQ SCH ×2 (08:09→21:00)
[2016-04-07] MEDS: SODIUM CHLORIDE 0.9% FLUSH 5 ML FLUSH FLUSH SCH ×2 (08:09→21:00)
--- NOTE | 2016-04-07 13:55 | HHI.PR ---
Subjective Interval History Patient is feeling good breathing better no nausea vomiting walking without any dyspnea on exertion. Review of systems a 10 point system otherwise unremarkable Review of Systems Constitutional Constitutional: Weakness (generalized) Pulmonary Respiratory: Coughing, Shortness of Breath (exertional), Wheezing (mild) GI/Abdomen GI/Abdominal Exam: Nausea Psychiatric Psychiatric: Normal Mood Vitals/Results Intake & Output 04/06/16 04/06/16 04/07/16 15:00 23:00 07:00 Intake Total 840 ml 450 ml 300 ml Balance 840 ml 450 ml 300 ml Intake Oral 840 ml 450 ml 300 ml # Voids 3 2 2 # Bowel Movements 0 0 0 Vital Signs Vital Signs Date Time Temp Pulse Resp B/P Pulse Ox O2 Delivery O2 Flow Rate FiO2 04/07/16 08:50 98 Nasal Cannula 21 04/07/16 07:50 96.1 83 20 112/65 97 04/07/16 04:00 95.8 79 16 100/51 93 04/07/16 00:00 97.2 82 16 99/56 98 04/06/16 20:00 83 04/06/16 20:00 96.7 83 16 103/58 100 04/06/16 16:00 96.3 86 16 99/66 98 CBC/BMP: 04/07/16 0632 04/07/16 0632 Lab Results Laboratory Tests Test 04/07/16 06:32 White Blood Count 8.1 TH/MM3 Red Blood Count 3.88 MIL/MM3 Hemoglobin 9.5 GM/DL Hematocrit 30.0 % Mean Corpuscular Volume 77.2 FL Mean Corpuscular Hemoglobin 24.4 PG Mean Corpuscular Hemoglobin 31.5 % Concent Red Cell Distribution Width 19.5 % Platelet Count 299 TH/MM3 Mean Platelet Volume 8.0 FL Sodium Level 131 MEQ/L Potassium Level 3.9 MEQ/L Chloride Level 92 MEQ/L Carbon Dioxide Level 27.7 MEQ/L Anion Gap 11 MEQ/L Blood Urea Nitrogen 48 MG/DL Creatinine 1.62 MG/DL Estimat Glomerular Filtration 32 ML/MIN Rate Random Glucose 90 MG/DL Calcium Level 8.8 MG/DL Physical Exam General General Appearance: Well Developed, Well Nourished, No Acute Distress, Comfortable Eyes Eye Exam: Pupils Equal, Pupils Reactive Ears & Nose Ears & Nose Exam: Nasal Mucosa [place] Throat Throat Exam: Oral Mucosa [place] & Moist Neck Neck Exam: Neck Supple, Trachea Midline Pulmonary Resp Exam: Clear Bilaterally, Breath Sounds Equal, No Distress Cardiology CV Exam: Regular, Murmur Gastrointestinal/Abdomen GI Exam: Soft, Non-Tender, Bowel Sounds Present, Positive Bowel Movement, Non- Distended Musculoskeletal MS Exam: Normal Tone Integumentary Skin Exam: Warm, Dry, Intact Extremeties Extremities Exam: No Edema, Pedal Pulses Palpable Neurologic Neuro Exam: Alert, Awake, Oriented, Speech Clear, Moving All Extremities, No Focal Deficits Psychiatric Psych Exam: Appropriate Responses VTE Prophylaxis VTE Prophylaxis Device: SCDs Assessment/Plan Problem List: (1) CHF (congestive heart failure) (2) CAD (coronary artery disease) (3) Cardiomyopathy (4) History of COPD (5) Pericardial effusion without cardiac tamponade (6) Hx of mitral valve repair (7) Anxiety (8) Transaminitis Assessment/Plan Acute on chronic systolic heart failure Severe exertional dyspnea, improving Bundle branch block stable Hypokalemia resolved 2D echo EF 10-15% Likely liver congestion secondary to heart failure Hyponatremia Leukocytosis mild Nausea, probable secondary to heart failure Management Will continue low-dose Lasix and Aldactone discontinue Zaroxolyn No potassium BMP reviewed BMP in a few days to be followed by primary care doctor and cardiology Nausea improved Labs reviewed Renal insufficiency improving appreciate card input continuous telemetry reviewed Heparin for DVT prophylaxis Duonebs PRN Medications reviewed Previous notes reviewed Labs and notes reviewed Discussed with patient Discussed with RN Plan to discharge her home today. Patient wants to go home. Problem Qualifiers (1) CHF (congestive heart failure): Qualified Code: I50.23 - Acute on chronic systolic congestive heart failure (2) CAD (coronary artery disease): (3) Cardiomyopathy: Qualified Code: I25.5 - Ischemic cardiomyopathy Lori Hughes MD Apr 07, 2016 13:55
--- NOTE | 2016-04-07 13:59 | HHI.DS ---
Discharge Summary Admission Date Mar 29, 2016 at 10:31 Admitting Diagnosis chf, h/o copd (1) Respiratory distress Diagnosis: Principal (2) Tobacco abuse Diagnosis: Principal (3) SOB (shortness of breath) Diagnosis: Principal (4) Acute CHF Diagnosis: Principal (5) GERMÁN (acute kidney injury) Diagnosis: Principal (6) CAD (coronary artery disease) Diagnosis: Principal (7) CHF (congestive heart failure) Diagnosis: Principal (8) Cardiomyopathy Diagnosis: Principal (9) History of COPD Diagnosis: Principal (10) Transaminitis Diagnosis: Principal Brief History Patient was admitted because of the shortness of breath. Patient found out to have a some pericardial effusion. Also CHF. Patient was seen and followed by cardiology. Put on appropriate medications. Patient has transaminitis. For which patient was seen by GI. Ultrasound of the liver was done. As per GI it is hepatic congestion because of CHF. Patient liver enzymes are improving. After adjusting her diuretics patient has increase in his creatinine. Diuretics were on hold for last 2 days. Now. It is improving. Patient is overall stable and good condition. Plan to discharge her home on very low-dose of diuretics. And advised patient to be compliant of medications. Patient will be discharging home on home health care. Discussed with top case assembler. Discussed with patient in detail. She understood all very well. CBC/BMP: 04/07/16 0632 04/07/16 0632 Significant Findings Laboratory Tests Test 04/05/16 04/06/16 04/07/16 05:10 07:45 06:32 Red Blood Count 3.97 MIL/MM3 3.88 MIL/MM3 (4.00-5.30) (4.00-5.30) Hemoglobin 9.9 GM/DL 9.5 GM/DL (11.6-15.3) (11.6-15.3) Hematocrit 31.1 % 30.0 % (35.0-46.0) (35.0-46.0) Mean Corpuscular Volume 78.2 FL 77.2 FL (80.0-100.0) (80.0-100.0) Mean Corpuscular Hemoglobin 24.9 PG 24.4 PG (27.0-34.0) (27.0-34.0) Mean Corpuscular Hemoglobin 31.9 % 31.5 % Concent (32.0-36.0) (32.0-36.0) Red Cell Distribution Width 19.2 % 19.5 % (11.6-17.2) (11.6-17.2) Sodium Level 133 MEQ/L 133 MEQ/L 131 MEQ/L (136-145) (136-145) (136-145) Chloride Level 93 MEQ/L 92 MEQ/L 92 MEQ/L (98-107) (98-107) (98-107) Blood Urea Nitrogen 62 MG/DL (7-18) 55 MG/DL (7-18) 48 MG/DL (7-18) Creatinine 1.80 MG/DL 1.76 MG/DL 1.62 MG/DL (0.50-1.00) (0.50-1.00) (0.50-1.00) Estimat Glomerular Filtration 28 ML/MIN (>89) 29 ML/MIN (>89) 32 ML/MIN (>89) Rate Pt Condition on Discharge: Good Discharge Instructions DIET: Follow Instructions for: Heart Healthy Diet Activities you can perform: Weight Bearing as Tai Follow up Referrals: Cardiology - 2-3 Days with Kelvin Monroe DO PCP Follow-up - 2-3 Days New Medications: Carvedilol (Coreg) 12.5 Mg Tab 25 MG PO Q12HR CHF #60 TAB Scopolamine Patch 72 HR (Scopolamine Patch 72 HR) 1 Mg Patch 1 PATCH TD Q72H nausea #2 PATCH ([Spironolactone]) 25 MG TAB 12.5 MG PO DAILY TAB Changed Medications: Furosemide (Lasix) 40 Mg Tab 20 MG PO DAILY CHF #60 Ref 0 TAB (Changed from: 40 MG; BID) Continued Medications: Albuterol 8.5 GM Inh (Proair Hfa 8.5 GM Inh) 90 Mcg/Act Aer 2 PUFF INH Q4-6H 108 mcg/actuation PRN SHORTNESS OF BREATH #1 Ref 0 INHALER Ascorbic Acid (Vitamin C) 250 Mg Tab 250 MG PO DAILY Nutritional Supplement Ref 0 TAB Aspirin (Aspirin) 81 Mg Tabdr 81 MG PO DAILY TAB Atorvastatin (Atorvastatin) 40 Mg Tab 40 MG PO HS Cholesterol Management #30 Ref 0 TAB B-Complex Vitamins (Vitamin B Complex) 1 Tab 1 TAB PO DAILY Digoxin (Digoxin) 0.125 Mg Tab 0.125 MG PO DAILY Regulate Heart Beat #30 Ref 0 TAB Lorazepam (Ativan) 0.5 Mg Tab 0.5 MG PO Q6H PRN ANXIETY AND/OR AGITATION Ref 0 TAB Multiple Vitamin (Multiple Vitamin) 1 Tab 1 TAB PO DAILY Nutritional Supplement Ref 0 TAB Sertraline (Zoloft) 50 Mg Tab 100 MG PO DAILY #30 Ref 0 TAB Discontinued Medications: Carvedilol (Carvedilol) 3.125 Mg Tab 3.125 MG PO BID #60 Ref 0 TAB Metolazone (Metolazone) 2.5 Mg Tab 2.5 MG PO DAILY #30 Ref 0 TAB Potassium Chloride ER (Potassium Chloride ER) 10 Meq Tab 10 MEQ PO DAILY Electrolyte Replacement #30 Ref 0 TAB Lori Hughes MD Apr 07, 2016 13:59
[2016-04-07] MEDS ORDERED: CARV12.5 PO (14:02)
[2016-04-07] MEDS ORDERED: SCOP1PAT2 TD (14:02)
[2016-04-07] MEDS ORDERED: FURO1TAB60 PO (14:02)
[2016-04-07] MEDS ORDERED: Spironolactone PO (14:03)
--- NOTE | 2016-04-07 14:05 | HHI.FF ---
Face to Face Verification Diagnosis: (1) CAD (coronary artery disease) (2) CHF (congestive heart failure) (3) CHF exacerbation (4) SOB (shortness of breath) (5) GERMÁN (acute kidney injury) Home Health Nursing Order: Medical education CHF education Medication education-adverse effect Nursing assessment with vital signs I have seen patient Lizette Neal on 04/07/16. My clinical findings support the need for the requested home health care services because: Ltd mobility - disease progression I certify that my clinical findings support that this patient is homebound because: Hx COPD- exertion dyspnea/weakness Lori Hughes MD Apr 07, 2016 14:05
[2016-04-07] MEDS: ATORVASTATIN 40 MG TAB PO SCH (21:00)
== END 2016-04-07 22:54 | disposition home health service (06) | DRG 292 ==
LOC: NEPC 22:44 → NEDA 03-29 02:49 → NEPHCDU 03-29 05:09 → OBSVTOIN 03-29 10:31 → HOCB 04-01 15:03
PROVIDERS: ADMIT Specialist; ATTEND Specialist
DX: I50.23 Acute on chronic systolic (congestive) heart failure (principal); I31.3 Pericardial effusion (noninflammatory); N17.9 Acute kidney failure, unspecified; I47.2 Ventricular tachycardia; E44.0 Moderate protein-calorie malnutrition; J44.1 Chronic obstructive pulmonary disease with (acute) exacerbation; E87.1 Hypo-osmolality and hyponatremia; Z95.2 Presence of prosthetic heart valve; I10 Essential (primary) hypertension; E78.00 Pure hypercholesterolemia, unspecified; I25.10 Atherosclerotic heart disease of native coronary artery without angina pectoris; Z95.5 Presence of coronary angioplasty implant and graft; J45.909 Unspecified asthma, uncomplicated; M19.90 Unspecified osteoarthritis, unspecified site; K21.9 Gastro-esophageal reflux disease without esophagitis; F41.8 Other specified anxiety disorders; E78.5 Hyperlipidemia, unspecified; Z87.891 Personal history of nicotine dependence; I44.4 Left anterior fascicular block; K76.1 Chronic passive congestion of liver; Z88.8 Allergy status to other drugs, medicaments and biological substances; I25.5 Ischemic cardiomyopathy; I45.4 Nonspecific intraventricular block; R11.0 Nausea; E87.6 Hypokalemia
CPT/HCPCS: 71010; 76705; 80048; 80053; 80074; 80076; 80162; 80307; 81001; 82550; 82607; 82746; 83540; 83550; 83735; 83880; 84100; 84484; 85007; 85025; 85027; 85610; 85730; 93005; 93306; 94640; 94664; 96374; J1644; J1940; J2405

== ENCOUNTER 2016-04-16 01:47 | Inpatient (IN) | payer MEDICARE, OTHER ==
[2016-04-16] VITALS (44 sets, daily range): BP systolic 58–120; BP diastolic 34–79; PULSE 70–102; RESP 15–41; TEMP 97.3–98.3; O2SAT 92–100
[~2016-04-16] VITALS: Ht 162.6 cm; Wt 70.4 kg
[~2016-04-16 01:47] MED LIST changes: -ALBU8I INH; +ALBUAER3 INH; -ASCO500 PO; +ASPI1TAB69 PO; -ASPI81TA82 PO; -ATOR20TA PO; +ATOR40TA16 PO; -B-COTAB41 PO; +CARV12.5 PO; -CARV3.12 PO; +FURO1TAB60 PO; -FURO1TAB93 PO; -METO2.5T7 PO; +MULTTAB67 PO; -POTA-267 PO; +SCOP1PAT2 TD; -SERT50 PO; +Spironolactone PO; -TAB-TAB PO; +VITA250T3 PO; +VITATAB11 PO; +ZOLO50TA PO
[2016-04-16] MEDS ORDERED: SODIUM CHLORIDE 0.9% FLUSH 5 ML FLUSH IVF PRN ×3 (02:15→07:15)
[2016-04-16] MEDS ORDERED: RESP: ALBUTEROL 2.5 MG/IPRATROPIUM 0.5 MG NEB (SCH) NEB ONE (02:15)
[2016-04-16 02:50] LABS: AUTOMATED NEUTROPHIL # 7.6 TH/MM3 (1.8-7.7); BASOPHIL # 0.3 TH/MM3 (0-0.2); BASOPHIL % 2.7 % (0.0-2.0); EOSINOPHIL # 0.1 TH/MM3 (0-0.4); EOSINOPHIL % 0.9 % (0.0-4.0); HEMATOCRIT 30.5 % (35.0-46.0); LYMPH % 11.6 % (9.0-44.0); LYMPHOCYTE # 1.2 TH/MM3 (1.0-4.8); MEAN CELL VOLUME 74.8 FL (80.0-100.0); MEAN CORPUSCULAR HEMOGLOBIN 23.2 PG (27.0-34.0); MEAN CORPUSCULAR HGB CONC 31.1 % (32.0-36.0); MONO % 10.6 % (0.0-8.0); NEUT % 74.2 % (16.0-70.0); PLATELET COUNT 276 TH/MM3 (150-450); RED BLOOD COUNT 4.08 MIL/MM3 (4.00-5.30); RED CELL DISTRIBUTION WIDTH 19.3 % (11.6-17.2); WHITE BLOOD COUNT 10.3 TH/MM3 (4.0-11.0)
[2016-04-16 02:51] LABS: HEMO FLAGS DIFF FINAL
--- NOTE | 2016-04-16 02:53 | RADHPO ---
EXAM DATE/TIME: 04/16/2016 02:28 [facility] COMPARISON: CHEST SINGLE AP, March 29, 2016, 0:19. INDICATIONS : Shortness of breath. MEDICAL HISTORY : Congestive heart failure. Chronic obstructive pulmonary disease. Hypertension. CAD, GERD SURGICAL HISTORY : Mitral valve repair. Stents ENCOUNTER: Initial ACUITY: 1 day PAIN SCORE: 0/10 LOCATION: Bilateral chest FINDINGS: Severe cardiomegaly is present with prosthetic aortic valve. The lungs are free of acute parenchymal opacity. No effusions are identified. CONCLUSION: 1. Severe cardiomegaly. No acute cardiopulmonary disease. Femi Barahona MD on April 16, 2016 at 2:51 Board Certified Radiologist. This report was verified electronically.
[2016-04-16 02:58] LABS: CHLORIDE 95 MEQ/L (98-107); POTASSIUM 3.7 MEQ/L (3.5-5.1); SODIUM (NA) 134 MEQ/L (136-145)
[2016-04-16 03:02] LABS: ANION GAP 15 MEQ/L (5-15); APTT (PATIENT) 26.5 SEC (24.3-30.1); BICARBONATE 24.4 MEQ/L (21.0-32.0); BLOOD UREA NITROGEN 64 MG/DL (7-18); INTERNATIONAL NORMALIZED RATIO 1.6 RATIO; MAGNESIUM 1.9 MG/DL (1.5-2.5); PROTHROMBIN TIME - PATIENT 18.4 SEC (9.8-11.6)
[2016-04-16 03:05] LABS: ALT (GPT) 66 U/L (10-53); AST (GOT) 113 U/L (15-37); GLOMERULAR FILTRATION RATE 25 ML/MIN (>89)
[2016-04-16 03:07] LABS: TOTAL BILIRUBIN ADULT 0.9 MG/DL (0.2-1.0)
[2016-04-16 03:08] LABS: ALKALINE PHOSPHATASE 98 U/L (45-117)
[2016-04-16 03:19] LABS: CREATINE KINASE 2244 U/L (26-192)
[2016-04-16 03:32] LABS: CKMB 24.9 NG/ML (0.5-3.6)
[2016-04-16 03:44] LABS: DIGOXIN 0.4 NG/ML (0.8-2.0)
--- NOTE | 2016-04-16 03:51 | PD ---
HPI Chief Complaint: Respiratory Distress Time Seen by Provider: 02:09 Travel History International Travel<30 days: No Contact w/Intl Traveler<30days: No Traveled to known affect area: No History of Present Illness HPI 65-year-old female presents to the emergency department by private transportation the care of her family for evaluation of shortness of breath. Patient was recently hospitalized March 29 2 April 07. Since returning home she has not been taking her medications as prescribed. Patient states that she has noted worsening shortness of breath over the past few days. Patient's had nonproductive cough. Patient has history of CAD with previous stent placement cardiomegaly/cardiomyopathy CHF COPD chronic kidney disease and tobacco use. Patient denies any fever or chills. No report of hemoptysis. No vomiting or diarrhea. No flank pain or urinary symptoms. Patient has not noticed any lower extremity pain or swelling. Patient states frequently when she gets discharged from the hospital she just doesn't feel well enough to take the medications as prescribed. Patient also reports that family members did not fill all of her prescriptions. Patient has been taking her Lasix and Carvedilol. PFSH Past Medical History Narrative Medical Arthritis COPD CAD cardiac catheterization with stent placement stress test tobacco use CHF renal insufficiency CAD COPD cardiomyopathy nursing notes reviewed Hx Anticoagulant Therapy: No (just asa) Arthritis: Yes Asthma: Yes Autoimmune Disease: No Blood Disorders: No Anxiety: Yes Depression: Yes Heart Rhythm Problems: No Cancer: No Cardiac Catheterization: Yes (3 STENTS) Cardiomyopathy: Yes Cardiovascular Problems: Yes (EF 10-15% ON 04/07/16) High Cholesterol: Yes Chemotherapy: No Chest Pain: No Congestive Heart Failure: Yes COPD: Yes Coronary Artery Disease: Yes Diabetes: No Diminished Hearing: No Endocrine: No Gastrointestinal Disorders: Yes (GERD) GERD: Yes Genitourinary: Yes (ACUTE KIDNEY INJURY) Hiatal Hernia: No Hypertension: Yes Immune Disorder: No Implanted Vascular Access Dvce: Yes (stents) Kidney Stones: No Medical other: Yes (TRANSAMINITIS) Musculoskeletal: Yes Neurologic: No Psychiatric: Yes Reproductive: No Respiratory: Yes Immunizations Current: Yes Radiation Therapy: No Renal Failure: No Sickle Cell Disease: No Sleep Apnea: No Thyroid Disease: No Ulcer: No Tetanus Vaccination: < 5 Years Influenza Vaccination: No ?: Not Menopausal: Yes : 4 Para: 4 Past Surgical History Body Medical Devices: MITRAL VALVE REPLACEMENT Cardiac Surgery: Yes (MITRAL VALVE REPAIR, 3 STENTS) Ear Surgery: No Endocrine Surgery: No Eye Surgery: No Genitourinary Surgery: No Gynecologic Surgery: No Oral Surgery: No Thoracic Surgery: No Tonsillectomy: Yes Other Surgery: Yes Social History Alcohol Use: Yes (OCC) Tobacco Use: No (STATES QUIT 3 WEEKS AGO) Substance Use: No Allergies-Medications (Allergen,Severity, Reaction): Coded Allergies: Metoprolol (Verified Allergy, Severe, Rash, 04/16/16) Uncoded Allergies: METROPOLOL (Allergy, Severe, Rash, 01/08/14) Reported Meds & Prescriptions Reported Meds & Active Scripts Active [Spironolactone] 25 MG Tab 12.5 Mg PO DAILY Scopolamine Patch 72 HR (Scopolamine) 1 Mg Patch 1 Patch TD Q72H Coreg (Carvedilol) 12.5 Mg Tab 25 Mg PO Q12HR Lasix (Furosemide) 40 Mg Tab 20 Mg PO DAILY Reported Vitamin C (Ascorbic Acid) 250 Mg Tab 250 Mg PO DAILY Vitamin B Complex (B-Complex Vitamins) 1 Tab 1 Tab PO DAILY Zoloft (Sertraline HCl) 50 Mg Tab 100 Mg PO DAILY Multiple Vitamin 1 Tab 1 Tab PO DAILY Ativan (Lorazepam) 0.5 Mg Tab 0.5 Mg PO Q6H PRN Digoxin 0.125 Mg Tab 0.125 Mg PO DAILY Atorvastatin (Atorvastatin Calcium) 40 Mg Tab 40 Mg PO HS Aspirin 81 Mg Tabdr 81 Mg PO DAILY Proair Hfa 8.5 GM Inh (Albuterol Sulfate) 90 Mcg/Act Aer 2 Puff INH Q4-6H PRN 108 mcg/actuation Review of Systems Except as stated in HPI: all other systems reviewed are Neg General / Constitutional: No: Fever Eyes: No: Visual changes HENT: No: Congestion Cardiovascular: No: Chest Pain or Discomfort Respiratory: Positive: Cough, Shortness of Breath Gastrointestinal: No: Abdominal Pain Genitourinary: No: Flank Pain Musculoskeletal: No: Myalgias, Arthralgias, Edema Skin: No Rash Neurologic: Positive: Weakness Psychiatric: Positive: Anxiety Endocrine: No: Polyuria Hematologic/Lymphatic: Positive: Easy Bruising Physical Exam Narrative GENERAL: Ill-appearing female in no acute respiratory distress at rest but noted increased dyspnea with minimal exertion SKIN: Warm and dry. HEAD: Atraumatic. Normocephalic. EYES: Pupils equal and round. No scleral icterus. No injection or drainage. ENT: No nasal bleeding or discharge. Mucous membranes pink and moist. NECK: Trachea midline. No JVD. CARDIOVASCULAR: Regular rate and rhythm. RESPIRATORY: No accessory muscle use. Few basilar crackles to auscultation. Breath sounds equal bilaterally. GASTROINTESTINAL: Abdomen soft, non-tender, nondistended. Hepatic and splenic margins not palpable. MUSCULOSKELETAL: Extremities without clubbing, cyanosis, or edema. No obvious deformities. NEUROLOGICAL: Awake and alert. No obvious cranial nerve deficits. Motor grossly within normal limits. Five out of 5 muscle strength in the arms and legs. Normal speech. PSYCHIATRIC: Appropriate mood and affect; insight and judgment normal. Data Data Last Documented VS Vital Signs Date Time Temp Pulse Resp B/P Pulse Ox O2 Delivery O2 Flow Rate FiO2 04/16/16 03:55 100 18 106/68 100 Nasal Cannula 2 04/16/16 02:24 98.3 Orders Complete Blood Count With Diff (04/16/16 02:09) Comprehensive Metabolic Panel (04/16/16 02:09) B-Type Natriuretic Peptide (04/16/16 02:09) Act Partial Throm Time (Ptt) (04/16/16 02:09) Prothrombin Time / Inr (Pt) (04/16/16 02:09) Magnesium (Mg) (04/16/16 02:09) Ckmb (Isoenzyme) Profile (04/16/16 02:09) Troponin I (04/16/16 02:09) Iv Access Insert/Monitor (04/16/16 02:09) Electrocardiogram (04/16/16 02:09) Ecg Monitoring (04/16/16 02:09) Oximetry (04/16/16 02:09) Oxygen Administration (04/16/16 02:09) Chest, Single Ap (04/16/16 02:09) Sodium Chloride 0.9% Flush (Ns Flush) (04/16/16 02:15) Digoxin (04/16/16 02:09) Albuterol-Ipratropium Neb (Duoneb Neb) (04/16/16 02:15) CKMB (04/16/16 02:45) CKMB% (04/16/16 02:45) Aspirin Chew (Aspirin Chew) (04/16/16 04:00) Furosemide Inj (Lasix Inj) (04/16/16 04:15) Admit Order (Ed Use Only) (04/16/16 ) ^ Saline Lock (04/16/16 04:15) Resp Oxygen Benji C Titrat 1-4 L (04/16/16 ) ^ Notify Dr: Other (04/16/16 04:15) Sodium Chloride 0.9% Flush (Ns Flush) (04/16/16 04:15) Consult Cardiology (04/16/16 04:15) Labs Laboratory Tests Test 04/16/16 02:45 White Blood Count 10.3 TH/MM3 Red Blood Count 4.08 MIL/MM3 Hemoglobin 9.5 GM/DL Hematocrit 30.5 % Mean Corpuscular Volume 74.8 FL Mean Corpuscular Hemoglobin 23.2 PG Mean Corpuscular Hemoglobin 31.1 % Concent Red Cell Distribution Width 19.3 % Platelet Count 276 TH/MM3 Mean Platelet Volume 8.5 FL Neutrophils (%) (Auto) 74.2 % Lymphocytes (%) (Auto) 11.6 % Monocytes (%) (Auto) 10.6 % Eosinophils (%) (Auto) 0.9 % Basophils (%) (Auto) 2.7 % Neutrophils # (Auto) 7.6 TH/MM3 Lymphocytes # (Auto) 1.2 TH/MM3 Monocytes # (Auto) 1.1 TH/MM3 Eosinophils # (Auto) 0.1 TH/MM3 Basophils # (Auto) 0.3 TH/MM3 CBC Comment DIFF FINAL Differential Comment Prothrombin Time 18.4 SEC Prothromb Time International 1.6 RATIO Ratio Activated Partial 26.5 SEC Thromboplast Time Sodium Level 134 MEQ/L Potassium Level 3.7 MEQ/L Chloride Level 95 MEQ/L Carbon Dioxide Level 24.4 MEQ/L Anion Gap 15 MEQ/L Blood Urea Nitrogen 64 MG/DL Creatinine 2.00 MG/DL Estimat Glomerular Filtration 25 ML/MIN Rate Random Glucose 100 MG/DL Calcium Level 8.2 MG/DL Magnesium Level 1.9 MG/DL Total Bilirubin 0.9 MG/DL Aspartate Amino Transf 113 U/L (AST/SGOT) Alanine Aminotransferase 66 U/L (ALT/SGPT) Alkaline Phosphatase 98 U/L Total Creatine Kinase 2244 U/L Creatine Kinase MB 24.9 NG/ML Creatine Kinase MB % 1.1 % Troponin I 0.89 NG/ML B-Type Natriuretic Peptide GREATER THAN 5000 PG/ML Total Protein 5.5 GM/DL Albumin 2.6 GM/DL Digoxin Level 0.4 NG/ML MDM Medical Decision Making Medical Screen Exam Complete: Yes Emergency Medical Condition: Yes Medical Record Reviewed: Yes Interpretation(s) Vital Signs Date Time Temp Pulse Resp B/P Pulse Ox O2 Delivery O2 Flow Rate FiO2 04/16/16 03:55 100 18 106/68 100 Nasal Cannula 2 04/16/16 02:49 20 98 04/16/16 02:30 100 20 97/64 98 Nasal Cannula 2 04/16/16 02:30 98 2 04/16/16 02:30 93 Nasal Cannula 2.00 04/16/16 02:24 98.3 99 20 104/68 100 CBC & BMP Diagram 04/16/16 02:45 Last Impressions Chest X-Ray 04/16/16 0209 Signed Impressions: Service Date/Time: Saturday, April 16, 2016 02:28 - CONCLUSION: 1. Severe cardiomegaly. No acute cardiopulmonary disease. Femi Barahona MD Troponin I 0.89, elevated CK total 2244 elevated with MB percent of 1.1% not elevated; BNP greater than 5000 Differential Diagnosis Dyspnea, CHF, ACS, exacerbation COPD, pneumonia, anemia, electrolyte disturbance Narrative Course Patient placed on soda fountain clerk and supplemental oxygen administered 2 L per nasal cannula updraft treatment administered and aspirin 162 mg Patient identified to have few crackles on auscultation and chest x-ray reveals marked cardiomegaly without significant vascular cephalization or congestion Patient identified to have worsening renal function and Lasix 20 mg IV ordered Blood pressure vacillated between 110 systolic and 85 systolic and identified to have elevated troponin I of 0.89 along with elevated CK total of 2244 and BNP greater than 5000; patient's case discussed with on-call cardiology Dr. Rodriguez who recommends administering 40 mg of Lasix containing patient on aspirin administering Lasix subcutaneous and repeating troponin level. Does not recommend patient to be transferred to [facility] does not anticipate. Profen proceeding with any procedures. Will be seen in consultation. Patient's case discussed with admitting physician patient's case discussed with patient and family and aware patient is being admitted to the hospital here at [facility] Patient has chosen to be a DO NOT RESUSCITATE Critical Care Narrative Aggregate critical care time was 35 minutes. Time to perform other separately billable procedures was not included in the critical care time. My time did not include minutes spent treating any other patients simultaneously or on activities that did not directly contribute to the patient's treatment. The services I provided to this patient were to treat and/or prevent clinically significant deterioration that could result in: Arrhythmia, cardiogenic shock, I provided critical care services requiring my management, as noted below: Chart data review, documentation time, medication orders and management, vital sign assessments/reviewing monitor data, ordering and reviewing lab tests, ordering and interpreting/reviewing x-rays and diagnostic studies, care of the patient and discussion of the patient with the admitting physicians. Physician Communication Physician Communication Case discussed with Dr. Rodriguez covering for patient's career counselor recommends subcutaneous heparin ongoing aspirin use continue administration of Lasix and repeat cardiac enzyme without need for transfer to [facility] as does not anticipate forming any procedure on the patient; does recommend using Lasix dosages as high as 40 mg IV as opposed to lower doses of 20 mg IV given in view of renal function as may improved perfusion following diuresis. Patient 's case discussed with on-call [facility] hospitalist attending Dr. fernandez and her request patient be admitted to Dr. Borja Diagnosis Primary Impression: CHF (congestive heart failure) Qualified Code: I50.22 - Chronic systolic congestive heart failure Additional Impressions: COPD exacerbation Elevated troponin CAD (coronary artery disease) GERMÁN (acute kidney injury) Admitting Information Admitting Physician Requests: Admit Martha Rock MD Apr 16, 2016 03:51
[2016-04-16] MEDS ORDERED: ASPIRIN 81 MG CHEW TAB CHEW ONE (04:00)
[2016-04-16] MEDS ORDERED: FUROSEMIDE 40 MG/4 ML VIAL IV PUSH ONE (04:15)
[2016-04-16] MEDS ORDERED: HEPARIN SODIUM - SQ 10,000 UNITS/ML VIAL SQ ONE (04:45)
[2016-04-16] MEDS ORDERED: RESP: ALBUTEROL 2.5 MG/IPRATROPIUM 0.5 MG NEB (PRN) NEB (04:45)
[2016-04-16] MEDS: HEPARIN SODIUM - SQ 10,000 UNITS/ML VIAL SQ SCH ×2 (05:32→17:00)
[2016-04-16] MEDS ORDERED: FUROSEMIDE 20 MG/2 ML VIAL IV PUSH SCH ×2 (06:00→18:00)
[2016-04-16 06:05] LABS: AUTOMATED NEUTROPHIL # 7.6 TH/MM3 (1.8-7.7); BASOPHIL # 0.1 TH/MM3 (0-0.2); BASOPHIL % 0.7 % (0.0-2.0); EOSINOPHIL % 0.5 % (0.0-4.0); HEMATOCRIT 31.9 % (35.0-46.0); LYMPH % 11.8 % (9.0-44.0); LYMPHOCYTE # 1.2 TH/MM3 (1.0-4.8); MEAN CELL VOLUME 75.4 FL (80.0-100.0); MEAN CORPUSCULAR HEMOGLOBIN 23.1 PG (27.0-34.0); MEAN CORPUSCULAR HGB CONC 30.6 % (32.0-36.0); MONO % 10.6 % (0.0-8.0); NEUT % 76.4 % (16.0-70.0); PLATELET COUNT 287 TH/MM3 (150-450); RED BLOOD COUNT 4.23 MIL/MM3 (4.00-5.30); RED CELL DISTRIBUTION WIDTH 19.8 % (11.6-17.2); WHITE BLOOD COUNT 9.9 TH/MM3 (4.0-11.0)
[2016-04-16 06:10] LABS: HEMO FLAGS AUTO DIFF
[2016-04-16 06:25] LABS: OVALOCYTES 2+ (NORMAL); PLATELET ESTIMATE SMEAR NORMAL (NORMAL); PLATELET MORPHOLOGY NORMAL (NORMAL); SCAN/DIFF AUTO DIFF CONFIRMED
[2016-04-16] MEDS ORDERED: ALBUTEROL SULFATE 90 MCG/ACT HFA 8 GM INHALER INH PRN (07:15)
--- NOTE | 2016-04-16 08:15 | MB ---
cc: MICHEL PEARSON MARK B. M.D. DATE OF CONSULTATION: 04/16/2016 REASON FOR CONSULTATION: Congestive heart failure. HISTORY Ms Neal is a 65-year-old white female known to me from previous evaluation. She as history of cardiomyopathy, chronic systolic congestive heart failure, severe left ventricular dysfunction, severe mitral regurgitation. Tricuspid regurgitation and coronary artery disease. The patient says states that over the past couple of weeks her shortness of breath has with exertion has worsened. She has moderate dyspnea at rest and some orthopnea and PND type symptoms. The patient is also admits to being noncompliant with many of her medications stating that her family never picked up her prescriptions. She was just discharged from the hospital about [id number] weeks ago for similar heart failure exacerbation. PAST MEDICAL HISTORY: Coronary artery disease Cardiomyopathy Hypercholesterolemia Mitral and tricuspid regurgitation Anxiety and depression Denies history of stroke or diabetes. PAST SURGICAL HISTORY: Mitral valve robotically repaired in [place] about 8 to 10 years ago, stenting of the right coronary artery in the past. ALLERGIES She describes cough from a medication possibly an ATTILA inhibitor cough. MEDICATIONS: 1. Medications that were prescribed at home include; Spironolactone 20 the 12.5 mg daily 2. Scopolamine patch q.72 h 3. Carvedilol 12.5 mg q.12 h 4. Furosemide 40 mg daily 5. Atorvastatin 40 mg at bedtime 6. Digoxin 0.125 mg daily 7. Zoloft 50 mg daily 8. Multivitamin daily 9. Vitamin D 10. Vitamin C supplements 11. Aspirin 81 mg daily 12. ProAir 8.5 grams inhaled daily q.4 h p.r.n. ALLERGIES METOPROLOL causes a rash. SOCIAL HISTORY The patient cigarette smoker says she quit 3 weeks ago and denies current alcohol or illicit drug use. Lives with her daughter FAMILY HISTORY: Family history is significant for heart disease. REVIEW OF SYSTEMS Has intermittent lower extremity edema and describes some orthopnea and PND as described above. Exertional dyspnea. Denies any angina or chest discomfort. Denies any palpitations, lightheadedness or syncope. Denies any bleeding or clotting disorders. Except for that mentioned HPI her complete 12-point review of systems otherwise negative. PHYSICAL EXAMINATION IN GENERAL: A Elderly, ill-appearing white female sitting up in bed in mild respiratory distress. VITAL SIGNS: Blood pressure 115/64 mmHg, heart rate is a 88 regular, respiratory rate 18, temperature 96.6, ox saturation 98% on 2 liters nasal cannula. HEAD, EYES, EARS, NOSE, AND THROAT: Head is normocephalic and atraumatic. Pupils equal and react to light. Sclerae anicteric. Extraocular movements intact. NECK: The neck is supple. There is there is no adenopathy. There is jugular venous distension noted at 90 degrees. Carotid upstrokes normal. LUNGS: The lungs have bibasilar crackles. HEART: Heart PMI is laterally displaced and diffuse. S1-S2 are normal. There is a grade 3/6 systolic murmur at left sternal border and apex. No diastolic murmur. S3 gallop is heard. No rubs. ABDOMEN: Abdomen is benign. EXTREMITIES: No cyanosis, clubbing or edema. Perfusion is adequate in the upper and lower extremities. There are no femoral bruits. NEUROLOGIC: Exam is grossly intact except for the patient appearing somewhat depressed. RADIOLOGIC: An EKG shows a sinus rhythm and right on admission and was in the knees and with x eight biatrial enlargement. Left anterior fascicular block, LVH with repolarization abnormalities. Abnormal EKG. No significant change compared to previous EKG's. Chest x-ray The shows severe cardiomegaly, no acute cardiopulmonary disease. LABORATORY DATA CBC white count 9.9, hemoglobin 9.8, platelet count 287,000, INR 1.6 see and chemistries sodium 134, potassium 3.7, CO2 24.4, BUN 15, creatinine, BUN 64, creatinine is 2.0, glucose 100, AST 113, total CPK 2244, MB percent 1.1. Troponin I 0.89. BNP BNP is greater than 5000. IMPRESSION 1. Acute on chronic systolic congestive heart failure. 2. Indeterminate elevation of troponin I. 3. Elevated CPK possible rhabdomyolysis. 4. Chronic obstructive pulmonary disease. 5. Abnormal liver function enzymes. 6. [id number] mitral regurgitation. 7. Cardiomyopathy with severe left ventricular dysfunction. 8. Coronary artery disease status post stenting of the right coronary artery, remote. 9. Status post mitral valve repair, remote. 10. Anxiety and depression disorder. 11. Noncompliance with medications and instructions. RECOMMENDATIONS Long discussion with the patient about her poor medication compliance. She is very depressed appearing. Her medications will be restarted. Her she will be started once again some intravenous furosemide 40 mg IV q.12 h and I have restarted her carvedilol at a lower dose with the addition of some Cozaar as tolerated by blood pressure. Follow renal function closely. Follow electrolytes closely. The patient has requested DNR status which I will implement at her request. Please see current orders. Thank you for allowing us to participate in the care of this patient Mrs. Neal. MD ISAAC Marti/violette /7:46 AM /8:03 AM
[2016-04-16] MEDS: SCOPOLAMINE 1.5 MG PATCH TD SCH (09:00)
[2016-04-16] MEDS ORDERED: SODIUM CHLORIDE 0.9% FLUSH 5 ML FLUSH IVF SCH ×2 (09:00)
[2016-04-16] MEDS ORDERED: SPIRONOLACTONE 25 MG TAB PO SCH (09:00)
[2016-04-16] MEDS ORDERED: FUROSEMIDE 40 MG/4 ML VIAL IVP SCH (09:00)
[2016-04-16] MEDS ORDERED: ASPIRIN EC 81 MG TABEC PO SCH (09:00)
[2016-04-16] MEDS ORDERED: CARVEDILOL 12.5 MG TAB PO SCH (09:00)
[2016-04-16] MEDS ORDERED: CARVEDILOL 6.25 MG TAB PO SCH (09:00)
[2016-04-16] MEDS: VITAMIN B COMPLEX/VIT C TAB PO SCH (09:57)
[2016-04-16] MEDS: MULTIVITAMIN TAB PO SCH (09:57)
[2016-04-16] MEDS: SERTRALINE HCL 50 MG TAB PO SCH (09:57)
[2016-04-16] MEDS: SODIUM CHLORIDE 0.9% FLUSH 5 ML FLUSH IVF SCH ×2 (09:57→20:11)
[2016-04-16] MEDS: ASCORBIC ACID 500 MG TAB PO SCH (09:58)
[2016-04-16] MEDS: DIGOXIN 0.125 MG TAB PO SCH (09:58)
[2016-04-16] MEDS: LOSARTAN 25 MG TAB PO SCH (09:58)
[2016-04-16] MEDS: ASPIRIN EC 81 MG TABEC PO SCH (09:58)
[2016-04-16] MEDS: LORazepam 0.5 MG TAB PO PRN (09:58)
[2016-04-16] MEDS ORDERED: ONDANSETRON HCL 4 MG/2 ML VIAL IV PRN (11:00)
[2016-04-16] MEDS ORDERED: ALUMINUM/MAGNESIUM/SIMETH 30 ML CUP PO PRN (11:00)
[2016-04-16] MEDS: PANTOPRAZOLE SOD 40 MG DELAYED RELEASE TAB PO SCH (13:20)
--- NOTE | 2016-04-16 15:41 | EKG ---
Date Performed: 04/16/2016 Time Performed: 02:09:10 PTAGE: 65 years EKG: Sinus rhythm Left axis deviation Possible left ventricular hypertrophy Lateral ST-T changes may be due to hypertr ophy and/or ischemia Compared to previous tracing, no significant change Abnormal ECG PREVIOUS TRACING : 04/01/2016 01.42 DOCTOR: Giovani Walls Interpretating Date/Time 04/16/2016 15:39:12
[2016-04-16] MEDS: DOPamine 800 MG/D5W PREMIX 500 ML IV SCH (17:00)
[2016-04-16] MEDS: ATORVASTATIN 40 MG TAB PO SCH (20:10)
[2016-04-16] MEDS: CARVEDILOL 6.25 MG TAB PO SCH (20:11)
[2016-04-16] MEDS ORDERED: CHLORHEXIDINE GLUCONATE 2 % 1 PACK (2 CLOTHS)(extra cloths) TOP PRN (21:00)
[2016-04-17] VITALS (97 sets, daily range): BP systolic 60–112; BP diastolic 30–70; PULSE 68–100; RESP 10–36; TEMP 97.4–98.7; O2SAT 93–100
[2016-04-17] MEDS ORDERED: CHLORHEXIDINE GLUCONATE 2 % 1 PACK (2 CLOTHS)(taper/protocol) TOP SCH (04:00)
--- NOTE | 2016-04-17 05:06 | HHI.PR ---
Subjective History of Present Illness Patient have low blood pressure but appear comfortable on presser support Critical care on board cardiology following d/w [facility] Stanton at bed side no other issue. have CVP Line in place. Low Potassium will replace per protocol checked Magnesium level was 1.9. Review of Systems Constitutional Constitutional: Fatigue, Weakness Vitals/Results Intake & Output 04/16/16 04/16/16 04/17/16 15:00 23:00 07:00 Intake Total 480 ml 273 ml Output Total 876 ml 500 ml Balance -396 ml -227 ml Intake Oral 480 ml 240 ml IV Total 33 ml Output Urine Total 800 ml 500 ml Stool Total 1 ml Emesis 75 ml Vital Signs Vital Signs Date Time Temp Pulse Resp B/P Pulse Ox O2 Delivery O2 Flow Rate FiO2 04/17/16 03:15 72 15 60/30 98 04/17/16 03:00 72 17 66/35 99 04/17/16 02:45 80 21 84/66 100 04/17/16 02:30 82 15 103/51 95 04/17/16 02:22 88 26 96/55 94 04/17/16 02:15 88 16 94 04/17/16 02:00 90 17 102/55 94 04/17/16 01:45 86 16 97/54 95 04/17/16 01:30 90 16 99/59 98 04/17/16 01:15 92 10 95/56 98 04/17/16 01:00 92 16 96/55 98 04/17/16 00:45 86 16 91/50 97 04/17/16 00:30 76 14 86/47 96 04/17/16 00:15 74 13 76/39 95 04/17/16 00:00 78 04/17/16 00:00 98.0 78 15 84/42 97 04/16/16 23:45 80 15 95/49 97 04/16/16 23:30 80 15 97/50 98 04/16/16 23:15 80 15 99/53 98 04/16/16 23:00 82 22 98/53 100 04/16/16 22:45 88 21 100/50 99 04/16/16 22:30 86 41 99 04/16/16 22:15 90 27 103/73 99 04/16/16 22:00 88 04/16/16 22:00 88 22 105/57 98 2/18/17 21:50 98 Nasal Cannula 2.00 2/18/17 21:45 88 16 101/56 99 2/18/17 21:30 88 18 96/58 99 2/18/17 21:15 94 24 93/48 97 2/18/17 21:00 92 24 99/55 95 2/18/17 20:45 92 17 102/60 97 2/18/17 20:30 92 21 85/63 92 2/18/17 20:15 94 20 108/62 96 2/18/17 20:15 96 Nasal Cannula 2.00 2/18/17 20:00 94 2/18/17 20:00 97.6 94 16 92/50 2/18/17 19:45 88 20 83/52 2/18/17 19:30 78 18 78/46 2/18/17 19:15 78 19 97/52 2/18/17 19:00 94 24 86/44 2/18/17 18:45 94 17 86/47 2/18/17 18:30 90 23 76/39 2/18/17 18:15 84 27 77/39 2/18/17 18:00 84 25 77/40 2/18/17 18:00 84 2/18/17 17:45 80 16 77/39 2/18/17 17:30 70 19 58/34 2/18/17 17:15 72 23 64/41 2/18/17 17:00 72 17 70/48 2/18/17 16:00 97.4 76 22 64/47 98 2/18/17 16:00 76 2/18/17 15:00 74 19 68/46 2/18/17 12:16 74 25 77/41 2/18/17 12:12 74 23 58/43 2/18/17 12:08 74 19 67/46 100 2/18/17 12:06 97.3 76 18 65/47 99 2/18/17 12:05 76 2/18/17 12:05 76 24 70/52 2/18/17 09:10 96 Room Air 218/17 08:00 97.4 97 27 101/65 100 2/18/17 08:00 97 2/18/17 07:40 98 21 2/18/17 06:00 102 20 96/79 100 Nasal Cannula 2 CBC/BMP: 2/18/17 0550 04/16/16 0245 Lab Results Laboratory Tests Test 04/16/16 04/16/16 04/16/16 04/16/16 05:50 08:45 14:30 20:30 White Blood Count 9.9 TH/MM3 Red Blood Count 4.23 MIL/MM3 Hemoglobin 9.8 GM/DL Hematocrit 31.9 % Mean Corpuscular Volume 75.4 FL Mean Corpuscular Hemoglobin 23.1 PG Mean Corpuscular Hemoglobin 30.6 % Concent Red Cell Distribution Width 19.8 % Platelet Count 287 TH/MM3 Mean Platelet Volume 8.2 FL Neutrophils (%) (Auto) 76.4 % Lymphocytes (%) (Auto) 11.8 % Monocytes (%) (Auto) 10.6 % Eosinophils (%) (Auto) 0.5 % Basophils (%) (Auto) 0.7 % Neutrophils # (Auto) 7.6 TH/MM3 Lymphocytes # (Auto) 1.2 TH/MM3 Monocytes # (Auto) 1.0 TH/MM3 Eosinophils # (Auto) 0.0 TH/MM3 Basophils # (Auto) 0.1 TH/MM3 CBC Comment AUTO DIFF Differential Comment AUTO DIFF CONFIRMED Platelet Estimate NORMAL Platelet Morphology Comment NORMAL Ovalocytes 2+ B-Type Natriuretic Peptide GREATER THAN 5000 PG/ML Troponin I 1.09 NG/ML 1.06 NG/ML Nasal Screen MRSA (PCR) POSITIVE Physical Exam General General Appearance: No Acute Distress, Comfortable Eyes Eye Exam: Pupils Equal, Pupils Reactive, Sclera White, Extraocular Movement Intact Throat Throat Exam: Oral Mucosa [place] & Moist, Oral Pharynx Normal Neck Neck Exam: Neck Supple, Trachea Midline Pulmonary Resp Exam: Clear Bilaterally, Breath Sounds Equal Cardiology CV Exam: Regular, Normal Sinus Rhythm Gastrointestinal/Abdomen GI Exam: Soft, Non-Tender, Bowel Sounds Present Integumentary Skin Exam: Clear, Warm, Dry, Intact, Normal Turgor Neurologic Neuro Exam: Alert, Awake, Oriented, Moving All Extremities, No Focal Deficits VTE Prophylaxis VTE Prophylaxis Meds: Heparin PUD Prophylasis PUD Prophylaxis: Protonix Assessment/Plan Assessment/Plan ASSESSMENT AND PLAN 1. This is a 65-year-old female who came to the ER diagnosed with shortness of breath, cough, wheezing most likely secondary to COPD exacerbation as well as acute on chronic systolic congestive heart failure with elevation of troponin and CPK. The patient is on Lasix. The patient does have low blood pressure, monitoring blood pressure very carefully. We will take I&Os daily, fluid restriction to 1.5 liters per day, salt restriction to 2 grams per day. Cardiology is seeing the patient. The patient had poor medication compliance. We want to continue the Carvedilol with the Cozaar as tolerated by blood pressure. 2. Renal failure. We are monitoring BUN and creatinine. 3. Elevated CPK, most probably rhabdomyolysis. Cannot give too much IV fluids. I will consult Nephrology with rhabdomyolysis as well as chronic renal failure. 4. High LFTs, most likely secondary to hypoperfusion and low blood pressure. 5. Moderate to severe mitral regurgitation. 6. Cardiomyopathy with severe left ventricular systolic dysfunction, ejection fraction of 10-15%. Coronary artery disease, status post stenting in the right coronary artery. The patient is also status post mitral valve repair/replacement. 7. History of anxiety and depression. Continue home medications. 8. Noncompliance with medication. 9. Anemia secondary to chronic medical diseases. 10. High troponin with renal failure. Cardiology is seeing the patient. Further recommendation per Cardiology. 11. Elevated INR at 1.6. The patient is not on any Coumadin. We will monitor. 12. Hypotension, carefully giving Carvedilol and Lasix per Cardiology and also getting spironolactone. 13. DVT prophylaxis. The patient to have heparin 5000 units subcutaneous twice a day. 14. GI prophylaxis. Protonix 40 mg p.o. daily. 15. Nausea and vomiting. The patient on Zofran 4 mg IV q. 6 hours p.r.n. nausea and vomiting. 16. History of hyperlipidemia. Continue Lipitor 40 mg p.o. daily. 17. History of anxiety. Ativan 0.5 mg p.o. q.6 hours p.r.n. anxiety. 18. History of COPD. Continue home medications. The patient is on DuoNeb nebulization. We are going to manage the patient on a daily basis and make recommendations on a daily basis. Discussed Condition with: Patient Black Borja MD Apr 17, 2016 05:06
[2016-04-17 06:08] LABS: AUTOMATED NEUTROPHIL # 7.8 TH/MM3 (1.8-7.7); BASOPHIL % 0.3 % (0.0-2.0); EOSINOPHIL # 0.1 TH/MM3 (0-0.4); EOSINOPHIL % 1.3 % (0.0-4.0); HEMATOCRIT 32.4 % (35.0-46.0); LYMPH % 8.5 % (9.0-44.0); LYMPHOCYTE # 0.8 TH/MM3 (1.0-4.8); MEAN CELL VOLUME 75.7 FL (80.0-100.0); MEAN CORPUSCULAR HEMOGLOBIN 23.2 PG (27.0-34.0); MEAN CORPUSCULAR HGB CONC 30.7 % (32.0-36.0); MONO % 11.5 % (0.0-8.0); NEUT % 78.4 % (16.0-70.0); PLATELET COUNT 277 TH/MM3 (150-450); RED BLOOD COUNT 4.28 MIL/MM3 (4.00-5.30); RED CELL DISTRIBUTION WIDTH 19.9 % (11.6-17.2); WHITE BLOOD COUNT 9.8 TH/MM3 (4.0-11.0)
[2016-04-17] MEDS: HEPARIN SODIUM - SQ 10,000 UNITS/ML VIAL SQ SCH ×2 (06:10→16:54)
[2016-04-17 06:16] LABS: HEMO FLAGS AUTO DIFF
[2016-04-17] MEDS ORDERED: MIDAZOLAM HCL 5 MG/ML VIAL (1 ML) IM ONE (06:30)
[2016-04-17 06:39] LABS: ALKALINE PHOSPHATASE 88 U/L (45-117); ALT (GPT) 75 U/L (10-53); ANION GAP 13 MEQ/L (5-15); AST (GOT) 110 U/L (15-37); BICARBONATE 27.5 MEQ/L (21.0-32.0); BLOOD UREA NITROGEN 64 MG/DL (7-18); CHLORIDE 98 MEQ/L (98-107); GLOMERULAR FILTRATION RATE 32 ML/MIN (>89); SODIUM (NA) 138 MEQ/L (136-145); TOTAL BILIRUBIN ADULT 0.9 MG/DL (0.2-1.0)
[2016-04-17 06:59] LABS: SCAN/DIFF AUTO DIFF CONFIRMED
[2016-04-17 07:08] LABS: POTASSIUM 2.9 MEQ/L (3.5-5.1)
--- NOTE | 2016-04-17 07:29 | RADHPO ---
EXAM DATE/TIME: 04/17/2016 07:15 [facility] COMPARISON: CHEST SINGLE AP, April 16, 2016, 2:28. INDICATIONS : Central line placement. MEDICAL HISTORY : None. SURGICAL HISTORY : None. ENCOUNTER: Subsequent ACUITY: 3 days PAIN SCORE: Non-responsive. LOCATION: Bilateral chest FINDINGS: Single AP view of the chest. Right IJ central venous catheter is in place with the tip of the cathete r at the cavoatrial junction. Persistent marked cardiac silhouette enlargement. Prosthetic cardiac va lve in place. Mild hazy opacity of the lung bases with mild pulmonary vasculature indistinctness. Mil d blunting of the costophrenic sulci. No evidence of pneumothorax. CONCLUSION: 1. Right IJ central venous catheter in place. No evidence of pneumothorax. 2. Persistent enlarged cardiac silhouette. 3. Mild pulmonary vascular congestion. 4. Small pleural effusions. Saul Campos MD on April 17, 2016 at 7:25 Board Certified Radiologist. This report was verified electronically.
--- NOTE | 2016-04-17 07:58 | HHI.HP ---
[facility] Service Critical Care Medicine Primary Care Physician Fausto Saha, DO Admission Diagnosis chf;exacerbarion copd; elevated troponin/acs; renal insufficiency Diagnosis: Travel History International Travel<30 Days: No Contact w/Intl Traveler <30 Da: No Traveled to Known Affected Are: No History of Present Illness This is a 65-year-old female that presented to the emergency department for evaluation of shortness of breath. Her previous admission 03/29-04/07 2016 for the same diagnosis.the patient had progressive dyspnea over the past few days, with a nonproductive cough. Patient has history significant for CAD with an ejection fraction 10-15%, previous stent placement cardiomegaly/cardiomyopathy CHF COPD chronic kidney disease and tobacco use. Patient denies any fever or chills. No report of hemoptysis. No vomiting or diarrhea. No flank pain or urinary symptoms. Patient has not noticed any lower extremity pain or swelling. Patient states frequently when she gets discharged from the hospital she just doesn't feel well enough to take the medications as prescribed and is depressed. Patient also reports noncompliance secondary to family not obtaining prescription medications. Last night the patient's MAP was noted to be in the 40's, the patient was placed on low-dose dopamine, admitted to ICU for management. History PFSH Past Medical History Narrative Medical Arthritis COPD CAD cardiac catheterization with stent placement stress test tobacco use CHF renal insufficiency CAD COPD cardiomyopathy nursing notes reviewed Hx Anticoagulant Therapy: No (just asa) Arthritis: Yes Asthma: Yes Autoimmune Disease: No Blood Disorders: No Anxiety: Yes Depression: Yes Heart Rhythm Problems: No Cancer: No Cardiac Catheterization: Yes (3 STENTS) Cardiomyopathy: Yes Cardiovascular Problems: Yes (EF 10-15% ON 04/07/16) High Cholesterol: Yes Chemotherapy: No Chest Pain: No Congestive Heart Failure: Yes COPD: Yes Coronary Artery Disease: Yes Diabetes: No Diminished Hearing: No Endocrine: No Gastrointestinal Disorders: Yes (GERD) GERD: Yes Genitourinary: Yes (ACUTE KIDNEY INJURY) Hiatal Hernia: No Hypertension: Yes Immune Disorder: No Implanted Vascular Access Dvce: Yes (stents) Kidney Stones: No Medical other: Yes (TRANSAMINITIS) Musculoskeletal: Yes Neurologic: No Psychiatric: Yes Reproductive: No Respiratory: Yes Immunizations Current: Yes Radiation Therapy: No Renal Failure: No Sickle Cell Disease: No Sleep Apnea: No Thyroid Disease: No Ulcer: No Tetanus Vaccination: < 5 Years Influenza Vaccination: No ?: Not Menopausal: Yes : 4 Para: 4 Past Surgical History Body Medical Devices: MITRAL VALVE REPLACEMENT Cardiac Surgery: Yes (MITRAL VALVE REPAIR, 3 STENTS) Ear Surgery: No Endocrine Surgery: No Eye Surgery: No Genitourinary Surgery: No Gynecologic Surgery: No Oral Surgery: No Thoracic Surgery: No Tonsillectomy: Yes Other Surgery: Yes Social History Alcohol Use: Yes (OCC) Tobacco Use: No (STATES QUIT 3 WEEKS AGO) Substance Use: No Allergies-Medications Allergies-Medications (Allergen,Severity, Reaction): Coded Allergies: Metoprolol (Verified Allergy, Severe, Rash, 04/16/16) Uncoded Allergies: METROPOLOL (Allergy, Severe, Rash, 01/08/14) Reported Meds & Prescriptions Reported Meds & Active Scripts Active [Spironolactone] 25 MG Tab 12.5 Mg PO DAILY Scopolamine Patch 72 HR (Scopolamine) 1 Mg Patch 1 Patch TD Q72H Coreg (Carvedilol) 12.5 Mg Tab 25 Mg PO Q12HR Lasix (Furosemide) 40 Mg Tab 20 Mg PO DAILY Reported Vitamin C (Ascorbic Acid) 250 Mg Tab 250 Mg PO DAILY Vitamin B Complex (B-Complex Vitamins) 1 Tab 1 Tab PO DAILY Zoloft (Sertraline HCl) 50 Mg Tab 100 Mg PO DAILY Multiple Vitamin 1 Tab 1 Tab PO DAILY Ativan (Lorazepam) 0.5 Mg Tab 0.5 Mg PO Q6H PRN Digoxin 0.125 Mg Tab 0.125 Mg PO DAILY Atorvastatin (Atorvastatin Calcium) 40 Mg Tab 40 Mg PO HS Aspirin 81 Mg Tabdr 81 Mg PO DAILY Proair Hfa 8.5 GM Inh (Albuterol Sulfate) 90 Mcg/Act Aer 2 Puff INH Q4-6H PRN 108 mcg/actuation ROS Review of Systems Except as stated in HPI: all other systems reviewed are Neg General / Constitutional: No: Fever Eyes: No: Visual changes HENT: No: Congestion Cardiovascular: No: Chest Pain or Discomfort Respiratory: Positive: Cough, Shortness of Breath Gastrointestinal: No: Abdominal Pain Genitourinary: No: Flank Pain Musculoskeletal: No: Myalgias, Arthralgias, Edema Skin: No Rash Neurologic: Positive: Weakness Psychiatric: Positive: Anxiety Endocrine: No: Polyuria Hematologic/Lymphatic: Positive: Easy Bruising Physical Exam Vital Signs Vital Signs Date Time Temp Pulse Resp B/P Pulse Ox O2 Delivery O2 Flow Rate FiO2 04/17/16 05:16 98 17 92/52 93 04/17/16 05:01 100 17 84/52 93 04/17/16 04:46 94 26 86/59 95 04/17/16 04:31 86 20 96/57 96 04/17/16 04:27 98.3 80 24 96/59 99 04/17/16 04:00 72 04/17/16 03:15 72 15 60/30 98 04/17/16 03:00 72 17 66/35 99 04/17/16 02:45 80 21 84/66 100 04/17/16 02:30 82 15 103/51 95 04/17/16 02:22 88 26 96/55 94 04/17/16 02:15 88 16 94 04/17/16 02:00 90 04/17/16 02:00 90 17 102/55 94 04/17/16 01:45 86 16 97/54 95 04/17/16 01:30 90 16 99/59 98 04/17/16 01:15 92 10 95/56 98 04/17/16 01:00 92 16 96/55 98 04/17/16 00:45 86 16 91/50 97 04/17/16 00:30 76 14 86/47 96 04/17/16 00:15 74 13 76/39 95 04/17/16 00:00 78 04/17/16 00:00 98.0 78 15 84/42 97 04/16/16 23:45 80 15 95/49 97 04/16/16 23:30 80 15 97/50 98 04/16/16 23:15 80 15 99/53 98 04/16/16 23:00 82 22 98/53 100 04/16/16 22:45 88 21 100/50 99 04/16/16 22:30 86 41 99 04/16/16 22:15 90 27 103/73 99 04/16/16 22:00 88 04/16/16 22:00 88 22 105/57 98 04/16/16 21:50 98 Nasal Cannula 2.00 04/16/16 21:45 88 16 101/56 99 04/16/16 21:30 88 18 96/58 99 04/16/16 21:15 94 24 93/48 97 04/16/16 21:00 92 24 99/55 95 18/17 20:45 92 17 102/60 97 17 20:30 92 21 85/63 92 18/17 20:15 94 20 108/62 96 218/17 20:15 96 Nasal Cannula 2.00 04/16/16 20:00 94 18/17 20:00 97.6 94 16 92/50 04/16/17 19:45 88 20 83/52 18/17 19:30 78 18 78/46 18/17 19:15 78 19 97/52 04/16/17 19:00 94 24 86/44 17 18:45 94 17 86/47 04/16/ 18:30 90 23 76/39 04/16/17 18:15 84 27 77/39 04/16/17 18:00 84 25 77/40 04/16/17 18:00 84 17 17:45 80 16 77/39 17 17:30 70 19 58/34 04/16/17 17:15 72 23 64/41 04/16/17 17:00 72 17 70/48 04/16/17 16:00 97.4 76 22 64/47 98 04/16/16 16:00 76 17 15:00 74 19 68/46 18/17 12:16 74 25 77/41 218/17 12:12 74 23 58/43 18/17 12:08 74 19 67/46 100 04/16/16 12:06 97.3 76 18 65/47 99 04/16/16 12:05 76 17 12:05 76 24 70/52 17 09:10 96 Room Air 04/16/16 08:00 97.4 97 27 101/65 100 04/16/16 08:00 97 04/16/16 07:40 98 21 Physical Exam GENERAL: This is a well-developed well-nourished female, crying stating feelings of depression on 2 L nasal cannula SKIN: Warm and dry. HEAD: Atraumatic. Normocephalic. EYES: Pupils equal and round. No scleral icterus. No injection or drainage. ENT: No nasal bleeding or discharge. Mucous membranes pink and moist. O2 via nasal cannula NECK: Trachea midline. No JVD. CARDIOVASCULAR: Normal rate, regular rhythm. Dopamine infusing peripherally. RESPIRATORY: No accessory muscle use. Clear to auscultation. Breath sounds equal bilaterally. GASTROINTESTINAL: Abdomen soft, non-tender, nondistended. No guarding. MUSCULOSKELETAL: Extremities without clubbing, cyanosis, or edema. No obvious deformities. NEUROLOGICAL: Awake and alert. RASS 0. No gross focal/sensory deficits. Follows commands in all 4 extremities. Laboratory Laboratory Tests Test 04/16/16 04/16/16 04/16/16 04/17/16 08:45 14:30 20:30 05:45 Troponin I 1.09 1.06 Nasal Screen MRSA (PCR) POSITIVE White Blood Count 9.8 Red Blood Count 4.28 Hemoglobin 9.9 Hematocrit 32.4 Mean Corpuscular Volume 75.7 Mean Corpuscular Hemoglobin 23.2 Mean Corpuscular Hemoglobin 30.7 Concent Red Cell Distribution Width 19.9 Platelet Count 277 Mean Platelet Volume 8.3 Neutrophils (%) (Auto) 78.4 Lymphocytes (%) (Auto) 8.5 Monocytes (%) (Auto) 11.5 Eosinophils (%) (Auto) 1.3 Basophils (%) (Auto) 0.3 Neutrophils # (Auto) 7.8 Lymphocytes # (Auto) 0.8 Monocytes # (Auto) 1.1 Eosinophils # (Auto) 0.1 Basophils # (Auto) 0.0 CBC Comment AUTO DIFF Differential Comment AUTO DIFF CONFIRMED Sodium Level 138 Potassium Level 2.9 Chloride Level 98 Carbon Dioxide Level 27.5 Anion Gap 13 Blood Urea Nitrogen 64 Creatinine 1.60 Estimat Glomerular Filtration 32 Rate Random Glucose 139 Calcium Level 8.0 Total Bilirubin 0.9 Aspartate Amino Transf 110 (AST/SGOT) Alanine Aminotransferase 75 (ALT/SGPT) Alkaline Phosphatase 88 Total Protein 5.3 Albumin 2.4 Result Diagram: 04/17/16 0545 04/17/16 0545 Imaging Last Impressions Chest X-Ray 04/16/16 0209 Signed Impressions: Service Date/Time: Saturday, April 16, 2016 02:28 - CONCLUSION: 1. Severe cardiomegaly. No acute cardiopulmonary disease. Femi Barahona MD Septic Shock Reassessment Heart: Regular rate and rhythm Skin: Warm Peripheral Pulses: Bounding Right Radial Bounding Left Radial Bounding Right Dorsalis Pedis Bounding Left Dorsalis Pedis Assessment and Plan Assessment and Plan Assessment: This is a 65-year-old female with significant cardiac disease, with noted severe cardiomegaly and an ejection fraction of 10-15%. Due to patient's medication noncompliance, the patient presents with readmission. The patient prognosis is guarded. Neurologic: Depression Anxiety disorder Noncompliance Continue Zoloft, Ativan home medications Neurochecks per ICU protocol Respiratory: COPD Tobacco abuse Cardiovascular: Severe cardiomegaly Acute on chronic systolic heart failure Coronary artery disease S/P stents placement (810 years ago) Dopamine infusion, maintain MAP >65mmHg Continue ASA, atorvastatin, digoxin, losartan Echo 03/31/16-tricuspid valve monitor read, pulmonic valve mild regurg,PASP 48, EF 1015%, diffuse hypokinesis, right atrium severely dilated, LV severely dilated EKG 04/16/16-LVH, LAD, sinus rhythm, no change from previous admission Troponins trending down Hold diuretics today, secondary to hypotension Central line placement, or chest xray Monitor CVP Renal: Renal insufficiency Creatinine 1.6 Monitoring document UOP Strict I/Os FEN/GI: Hypokalemia Heart healthy diet Continue multivitamin, vitamin B q day Replete electrolytes per ICU protocol Heme/ID: Coagulopathy Monitor CBC Trend INR, currently 1.6. Hold heparin am SQ dose. Repeat INR Endocrine: Glucose monitoring per ICU protocol -- SSI Prophylaxis: GI Prophylaxis Protonix PO DVT Prophylaxis -- SCDs Heparin 5000 SQ Lines: Right IJ central line (04/17) Dr Anderson, peripheral IVs 2 Dispo: Will consult Hospice, discussed with Dr Eng and patient. This patient remains critically ill with one or more organ systems which are or may become a threat to life. I have spent in excess of 60 minutes discontinuously in the care and management of this patient. This time is exclusive of procedures, and includes, but is not limited to, evaluation of the patient, review of the medical record, discussions with family, consultants, nursing staff, or respiratory therapy, and documentation in the medical record. Code Status DNR Discussed Condition With TELEPHONE STATION REPAIRER at bedside, attempted to call daughter by telephone Vivian Medina [phone] Twyla Anderson MD Apr 17, 2016 07:58
[2016-04-17] MEDS ORDERED: POTASSIUM PHOSPHATE MONOBASIC 500 MG TAB PO PRN (08:15)
[2016-04-17] MEDS ORDERED: CHLORHEXIDINE GLUCONATE 2 % 1 PACK (2 CLOTHS) TOP PRN (08:15)
[2016-04-17] MEDS ORDERED: POTASSIUM CHLOR 40 MEQ PREMIX 100 ML IV PRN (08:15)
[2016-04-17] MEDS ORDERED: SODIUM CHLORIDE 0.9% FLUSH 5 ML FLUSH IV FLUSH PRN (08:15)
[2016-04-17] MEDS ORDERED: RESP: ALBUTEROL 2.5 MG/IPRATROPIUM 0.5 MG NEB (PRN) INH (08:15)
[2016-04-17] MEDS ORDERED: POTASSIUM PHOSPHATE MONOBASIC 500 MG TAB PO/TUBE PRN (08:15)
[2016-04-17] MEDS ORDERED: POTASSIUM PHOSPHATE INJ 30 MMOL in SODIUM CHLOR 0.9% 250 ML INJ 250 ML IV PRN (08:15)
[2016-04-17] MEDS ORDERED: MAGNESIUM SULFATE INJ 4 GM in SODIUM CHLORIDE 0.9% INJ 92 ML IV PRN (08:15)
[2016-04-17] MEDS ORDERED: GLUCAGON 1 MG/ML VIAL OTHER PRN (08:15)
[2016-04-17] MEDS ORDERED: MAGNESIUM SULFATE INJ 2 GM in SODIUM CHLORIDE 0.9% INJ 96 ML IV PRN (08:15)
[2016-04-17] MEDS ORDERED: DEXTROSE 50% IN WATER 50 ML VIAL(D50) IV PUSH PRN (08:15)
[2016-04-17] MEDS ORDERED: SODIUM PHOSPHATE INJ 30 MMOL in SODIUM CHLOR 0.9% 250 ML INJ 240 ML IV PRN (08:15)
[2016-04-17] MEDS ORDERED: MISCELLANEOUS NURSING INFORMATION XX SCH (08:15)
[2016-04-17] MEDS ORDERED: MAGNESIUM OXIDE 400 MG TAB PO PRN (08:15)
[2016-04-17] MEDS ORDERED: POTASSIUM CL 40 MEQ/30 ML LIQ UDC PO/TUBE PRN ×2 (08:15)
[2016-04-17] MEDS ORDERED: POTASSIUM CHLOR 20 MEQ PREMIX 100 ML IV PRN ×2 (08:15)
--- NOTE | 2016-04-17 08:15 | PD.CARD.PN ---
Subjective Subjective Remarks Hypotension requiring dopamine last night. MAP's now in 70's. No distress. Denies CP or SOB and appears comfortable but lethargic. Recently had CVP line placed and had some Versed. Objective Medications Current Medications Medications (Trade) Dose Ordered Sig/Elza Route PRN Reason Start Time Stop Time Status Last Admin Dose Admin Heparin Sodium (Porcine) (Heparin Inj) 5,000 units Q12H SQ 04/16/16 06:00 04/17/16 06:10 Losartan Potassium (Cozaar) 12.5 mg DAILY PO 04/16/16 09:00 04/16/16 09:58 IV Flush (NS Flush) 2 ml BID IVF 04/16/16 09:00 04/16/16 20:11 IV Flush (NS Flush) 2 ml UNSCH PRN IVF FLUSH AFTER USING IV ACCESS 04/16/16 07:15 Aspirin (Ecotrin Ec) 81 mg DAILY PO 04/16/16 09:00 04/16/16 09:58 Atorvastatin Calcium (Lipitor) 40 mg HS PO 04/16/16 21:00 04/16/16 20:10 Digoxin (Lanoxin) 0.125 mg DAILY PO 04/16/16 09:00 04/16/16 09:58 Lorazepam (Ativan) 0.5 mg Q6H PRN PO ANXIETY AND/OR AGITATION 04/16/16 07:15 04/16/16 09:58 Multivitamins (Theragran) 1 tab DAILY PO 04/16/16 09:00 04/16/16 09:57 Scopolamine (Transderm-Scop 1.5 Mg Patch.72 Hr) 1 patch Q72H TD 04/16/16 09:00 Sertraline HCl (Zoloft) 100 mg DAILY PO 04/16/16 09:00 04/16/16 09:57 Ascorbic Acid (Vitamin C) 250 mg DAILY PO 04/16/16 09:00 04/16/16 09:58 Vitamin B Complex/ Vitamin C (Allbee C) 1 tab DAILY PO 04/16/16 09:00 04/16/16 09:57 Spironolactone (Aldactone) 12.5 mg DAILY PO 04/16/16 09:00 04/16/16 09:58 Miscellaneous (Pill Splitter) 1 ea UNSCH PRN OTHER SEE LABEL COMMENTS 04/16/16 07:30 Miscellaneous Information 1 Q72H TD 04/19/16 09:00 Ondansetron HCl (Zofran Inj) 4 mg Q6H PRN IV NAUSEA 04/16/16 11:00 04/16/16 10:58 Pantoprazole Sodium (Protonix) 40 mg DAILY PO 04/16/16 11:00 04/16/16 13:20 Al Hydrox/Mg Hydrox/Simethicone (Mag-Al Plus Susp Liq) 30 ml Q4H PRN PO HEARTBURN 04/16/16 11:00 04/16/16 13:20 Carvedilol 6.25 mg 6.25 mg Q12HR PO 04/16/16 21:00 Dopamine HCl/ Dextrose (DOPamine INJ PREMIX) 500 ml @ 0 mls/hr TITRATE IV 04/16/16 17:00 04/16/16 17:00 Miscellaneous Information Patient in critical care unit? Ass... [id number] XX 04/16/16 21:00 04/16/16 21:00 Chlorhexidine Gluconate (Chlorhexidine 2% Cloth) 3 pack DAILY@04 TOP 04/17/16 04:00 04/21/16 04:01 04/17/16 04:00 Chlorhexidine Gluconate (Chlorhexidine 2% Cloth) 3 pack UNSCH PRN TOP HYGIENIC CARE 04/16/16 21:00 04/21/16 20:46 Vital Signs / I&O Vital Signs Date Time Temp Pulse Resp B/P Pulse Ox O2 Delivery O2 Flow Rate FiO2 04/17/16 05:16 98 17 92/52 93 04/17/16 05:01 100 17 84/52 93 04/17/16 04:46 94 26 86/59 95 04/17/16 04:31 86 20 96/57 96 04/17/16 04:27 98.3 80 24 96/59 99 04/17/16 04:00 72 04/17/16 03:15 72 15 60/30 98 04/17/16 03:00 72 17 66/35 99 04/17/16 02:45 80 21 84/66 100 04/17/16 02:30 82 15 103/51 95 04/17/16 02:22 88 26 96/55 94 04/17/16 02:15 88 16 94 2/19/17 02:00 90 2/19/17 02:00 90 17 102/55 94 2/19/17 01:45 86 16 97/54 95 2/19/17 01:30 90 16 99/59 98 2/19/17 01:15 92 10 95/56 98 2/19/17 01:00 92 16 96/55 98 2/19/17 00:45 86 16 91/50 97 2/19/17 00:30 76 14 86/47 96 2/19/17 00:15 74 13 76/39 95 2/19/17 00:00 78 2/19/17 00:00 98.0 78 15 84/42 97 2/18/17 23:45 80 15 95/49 97 2/18/17 23:30 80 15 97/50 98 2/18/17 23:15 80 15 99/53 98 2/18/17 23:00 82 22 98/53 100 2/18/17 22:45 88 21 100/50 99 2/18/17 22:30 86 41 99 2/18/17 22:15 90 27 103/73 99 2/18/17 22:00 88 2/18/17 22:00 88 22 105/57 98 2/18/17 21:50 98 Nasal Cannula 2.00 2/18/17 21:45 88 16 101/56 99 2/18/17 21:30 88 18 96/58 99 2/18/17 21:15 94 24 93/48 97 2/18/17 21:00 92 24 99/55 95 2/18/17 20:45 92 17 102/60 97 2/18/17 20:30 92 21 85/63 92 2/18/17 20:15 94 20 108/62 96 2/18/17 20:15 96 Nasal Cannula 2.00 2/18/17 20:00 94 2/18/17 20:00 97.6 94 16 92/50 2/18/17 19:45 88 20 83/52 2/18/17 19:30 78 18 78/46 2/18/17 19:15 78 19 97/52 2/18/17 19:00 94 24 86/44 2/18/17 18:45 94 17 86/47 2/18/17 18:30 90 23 76/39 2/18/17 18:15 84 27 77/39 2/18/17 18:00 84 25 77/40 04/16/16 18:00 84 04/16/16 17:45 80 16 77/39 04/16/16 17:30 70 19 58/34 04/16/16 17:15 72 23 64/41 04/16/16 17:00 72 17 70/48 04/16/16 16:00 97.4 76 22 64/47 98 04/16/16 16:00 76 04/16/16 15:00 74 19 68/46 04/16/16 12:16 74 25 77/41 04/16/16 12:12 74 23 58/43 04/16/16 12:08 74 19 67/46 100 04/16/16 12:06 97.3 76 18 65/47 99 04/16/16 12:05 76 04/16/16 12:05 76 24 70/52 04/16/16 09:10 96 Room Air I/O 04/16/16 04/16/16 04/16/16 04/17/16 04/17/16 04/17/16 07:00 15:00 23:00 07:00 15:00 23:00 Intake Total 480 ml 273 ml Output Total 876 ml 500 ml Balance -396 ml -227 ml Intake Oral 480 ml 240 ml IV Total 33 ml Output Urine Total 800 ml 500 ml Stool Total 1 ml Emesis 75 ml Physical Exam VSS, MAP 70's on dopamine drip. Mild JVD at 45 deg. Lungs: Decreased BS, few basilar rales but mostly clear. Heart: S1/S2/S3, 2/6 systolic murmur of MR. Ext: No C/C/E. Warm. Skin: W & D Laboratory Laboratory Tests Test 04/16/16 04/16/16 04/16/16 04/17/16 08:45 14:30 20:30 05:45 Troponin I 1.09 NG/ML 1.06 NG/ML Nasal Screen MRSA (PCR) POSITIVE White Blood Count 9.8 TH/MM3 Red Blood Count 4.28 MIL/MM3 Hemoglobin 9.9 GM/DL Hematocrit 32.4 % Mean Corpuscular Volume 75.7 FL Mean Corpuscular Hemoglobin 23.2 PG Mean Corpuscular Hemoglobin 30.7 % Concent Red Cell Distribution Width 19.9 % Platelet Count 277 TH/MM3 Mean Platelet Volume 8.3 FL Neutrophils (%) (Auto) 78.4 % Lymphocytes (%) (Auto) 8.5 % Monocytes (%) (Auto) 11.5 % Eosinophils (%) (Auto) 1.3 % Basophils (%) (Auto) 0.3 % Neutrophils # (Auto) 7.8 TH/MM3 Lymphocytes # (Auto) 0.8 TH/MM3 Monocytes # (Auto) 1.1 TH/MM3 Eosinophils # (Auto) 0.1 TH/MM3 Basophils # (Auto) 0.0 TH/MM3 CBC Comment AUTO DIFF Differential Comment AUTO DIFF CONFIRMED Sodium Level 138 MEQ/L Potassium Level 2.9 MEQ/L Chloride Level 98 MEQ/L Carbon Dioxide Level 27.5 MEQ/L Anion Gap 13 MEQ/L Blood Urea Nitrogen 64 MG/DL Creatinine 1.60 MG/DL Estimat Glomerular Filtration 32 ML/MIN Rate Random Glucose 139 MG/DL Calcium Level 8.0 MG/DL Total Bilirubin 0.9 MG/DL Aspartate Amino Transf 110 U/L (AST/SGOT) Alanine Aminotransferase 75 U/L (ALT/SGPT) Alkaline Phosphatase 88 U/L Total Protein 5.3 GM/DL Albumin 2.4 GM/DL Imaging Last 48 hours Impressions Chest X-Ray 04/17/16 0000 Signed Impressions: Service Date/Time: Sunday, April 17, 2016 07:15 - CONCLUSION: 1. Right IJ central venous catheter in place. No evidence of pneumothorax. 2. Persistent enlarged cardiac silhouette. 3. Mild pulmonary vascular congestion. 4. Small pleural effusions. Saul Campos MD Chest X-Ray 04/16/16 0209 Signed Impressions: Service Date/Time: Saturday, April 16, 2016 02:28 - CONCLUSION: 1. Severe cardiomegaly. No acute cardiopulmonary disease. Femi Barahona MD Assessment and Plan Problem List: (1) Acute on chronic systolic (congestive) heart failure (2) Hx of mitral valve repair (3) Tricuspid regurgitation (4) Mitral regurgitation Assessment and Plan: Severe (5) GERMÁN (acute kidney injury) (6) COPD exacerbation (7) Arteriosclerotic heart disease (ASHD) (8) Non compliance w medication regimen (9) Cardiomyopathy Assessment and Plan: Low CO state likely nearing endstage. Assessment and Plan Coreg, Cozaar, and diuretics on hold. Not tolerating due to severe hypotension now requiring some pressor support.. Discussed patients wishes. There is very little left to offer her from a medical standpoint. She has requested DNR status and has also agreed to consider Hospice evaluation. Continue supportive care in ICU today. Dr. Gillis will reevaluate on Monday. Code Status DNR Discussed Condition With Patient, staffing mgr and Dr. Anderson. Wood Eng MD Apr 17, 2016 08:14
[2016-04-17] MEDS ORDERED: FUROSEMIDE 40 MG/4 ML VIAL IVP SCH (09:00)
[2016-04-17] MEDS: DOCUSATE SODIUM 100 MG CAP PO SCH ×2 (09:00→21:26)
[2016-04-17] MEDS: LOSARTAN 25 MG TAB PO SCH (09:00)
[2016-04-17 09:26] LABS: INTERNATIONAL NORMALIZED RATIO 1.4 RATIO; PROTHROMBIN TIME - PATIENT 15.5 SEC (9.8-11.6)
[2016-04-17] MEDS: POTASSIUM CHLOR 40 MEQ PREMIX 100 ML IV PRN ×2 (09:51→12:16)
[2016-04-17] MEDS: DIGOXIN 0.125 MG TAB PO SCH (09:52)
[2016-04-17] MEDS: CARVEDILOL 6.25 MG TAB PO SCH ×2 (09:52→21:26)
[2016-04-17] MEDS: ASCORBIC ACID 500 MG TAB PO SCH (09:52)
[2016-04-17] MEDS: SODIUM CHLORIDE 0.9% FLUSH 5 ML FLUSH IV FLUSH SCH ×2 (09:53→21:27)
[2016-04-17] MEDS: VITAMIN B COMPLEX/VIT C TAB PO SCH (09:53)
[2016-04-17] MEDS: SERTRALINE HCL 50 MG TAB PO SCH (09:53)
[2016-04-17] MEDS: ASPIRIN EC 81 MG TABEC PO SCH (09:53)
[2016-04-17] MEDS: PANTOPRAZOLE SOD 40 MG DELAYED RELEASE TAB PO SCH (09:53)
[2016-04-17] MEDS: MULTIVITAMIN TAB PO SCH (09:53)
[2016-04-17] MEDS: INSULIN NovoLIN REGULAR SUPPLEMENTAL SCALE SQ SCH ×3 (12:16→22:27)
[2016-04-17] MEDS: PILL SPLITTER OTHER PRN (12:16)
[2016-04-17] MEDS: MUPIROCIN 2% OINT 1 APPLIC/GM SYR NASAL SCH ×2 (12:19→21:26)
--- NOTE | 2016-04-17 15:04 | PD.PROCEDR ---
Procedure Note Procedure Diagnosis: Severe cardiomegaly Indications: Vasoactive medications, CVP monitoring Consent: Emergent, attempts made to contact daughter Anesthesia: Versed 1 mg, atenolol 50 mics Description of the Procedure: The patient was placed in the supine, mild- Trendelenburg position. The area was prepped and draped sterilely. A 19g needle was inserted under negative pressure aspiration and dark venous blood was obtained. A guidewire was inserted easily without resistance. A small incision was made using a #11 blade. Using a modified Seldinger technique, the dilator and 7 Divehi catheter were advanced over the guidewire without resistance. All ports were aspirated and flushed, and had brisk blood return. The line was secured at 17 cm at the skin using 2-0 silk interrupted sutures. A Biopatch and Transparent sterile dressing were applied. There were no immediate complications noted. There was minimal EBL. The patient tolerated the procedure well. Ultrasound Guidance: Ultrasound guidance was used to identify the right IJ. The vascular anatomy was normal. The vessel was cannulated under direct, real-time ultrasound visualization. After placement of the guidewire, confirmation of the guidewire in the lumen of the vessel was made using ultrasound visualization, before dilation of the tract. A Chest x-ray has been ordered. I personally performed the procedure. Twyla Anderson MD Apr 17, 2016 15:04
[2016-04-17] MEDS: ATORVASTATIN 40 MG TAB PO SCH (21:26)
[2016-04-17] MEDS: LORazepam 0.5 MG TAB PO PRN (22:24)
[2016-04-18] VITALS (78 sets, daily range): BP systolic 66–116; BP diastolic 36–81; PULSE 74–104; RESP 8–43; TEMP 97.5–98.7; O2SAT 95–100
[2016-04-18] MEDS: CHLORHEXIDINE GLUCONATE 2 % 1 PACK (2 CLOTHS) TOP SCH (03:02)
[2016-04-18] MEDS: DOPamine 800 MG/D5W PREMIX 500 ML IV SCH (03:02)
[2016-04-18 05:19] LABS: AUTOMATED NEUTROPHIL # 5.9 TH/MM3 (1.8-7.7); BASOPHIL % 0.6 % (0.0-2.0); EOSINOPHIL # 0.2 TH/MM3 (0-0.4); EOSINOPHIL % 2.1 % (0.0-4.0); HEMATOCRIT 30.2 % (35.0-46.0); LYMPH % 12.2 % (9.0-44.0); MEAN CELL VOLUME 76.8 FL (80.0-100.0); MEAN CORPUSCULAR HEMOGLOBIN 23.2 PG (27.0-34.0); MEAN CORPUSCULAR HGB CONC 30.2 % (32.0-36.0); MONO % 14.2 % (0.0-8.0); NEUT % 70.9 % (16.0-70.0); PLATELET COUNT 251 TH/MM3 (150-450); RED BLOOD COUNT 3.93 MIL/MM3 (4.00-5.30); WHITE BLOOD COUNT 8.3 TH/MM3 (4.0-11.0)
[2016-04-18 05:20] LABS: HEMO FLAGS AUTO DIFF
[2016-04-18 05:30] LABS: CHLORIDE 101 MEQ/L (98-107); POTASSIUM 3.5 MEQ/L (3.5-5.1); SODIUM (NA) 139 MEQ/L (136-145)
[2016-04-18 05:35] LABS: ANION GAP 8 MEQ/L (5-15); BICARBONATE 29.6 MEQ/L (21.0-32.0); MAGNESIUM 1.7 MG/DL (1.5-2.5)
[2016-04-18 06:04] LABS: ALKALINE PHOSPHATASE 84 U/L (45-117); ALT (GPT) 67 U/L (10-53); AST (GOT) 70 U/L (15-37); BLOOD UREA NITROGEN 45 MG/DL (7-18); GLOMERULAR FILTRATION RATE 50 ML/MIN (>89); TOTAL BILIRUBIN ADULT 0.7 MG/DL (0.2-1.0)
[2016-04-18 06:07] LABS: INTERNATIONAL NORMALIZED RATIO 1.3 RATIO; PROTHROMBIN TIME - PATIENT 14.7 SEC (9.8-11.6)
--- NOTE | 2016-04-18 06:29 | HHI.CCPN ---
Subjective Remarks/Hospital Course This is a 65-year-old female that presented to the emergency department for evaluation of shortness of breath. Her previous admission 03/29-04/07 2016 for the same diagnosis.the patient had progressive dyspnea over the past few days, with a nonproductive cough. Patient has history significant for CAD with an ejection fraction 10-15%, previous stent placement cardiomegaly/cardiomyopathy CHF COPD chronic kidney disease and tobacco use. Patient denies any fever or chills. No report of hemoptysis. No vomiting or diarrhea. No flank pain or urinary symptoms. Patient has not noticed any lower extremity pain or swelling. Patient states frequently when she gets discharged from the hospital she just doesn't feel well enough to take the medications as prescribed and is depressed. Patient also reports noncompliance secondary to family not obtaining prescription medications. Last night the patient's MAP was noted to be in the 40's, the patient was placed on low-dose dopamine, admitted to ICU for management. Subjective 04/18: Afebrile. Resting in bed lying on her right side in no acute distress on 2 L nasal cannula. Denies chest pain or shortness of breath. Tolerating diet. Requesting coffee.. Objective Vital Signs Date Time Temp Pulse Resp B/P Pulse Ox O2 Delivery O2 Flow Rate FiO2 04/18/16 03:15 88 27 102/51 100 04/18/16 00:00 98.7 04/18/16 00:00 Nasal Cannula 2.00 04/16/16 07:40 21 Intake and Output 04/17/16 04/17/16 04/18/16 08:00 16:00 00:00 Intake Total 794 ml 487 ml Output Total 900 ml 800 ml Balance -106 ml -313 ml Result Diagram: 04/18/16 0455 04/18/16 0455 Imaging Last Impressions Chest X-Ray 04/17/16 0000 Signed Impressions: Service Date/Time: Sunday, April 17, 2016 07:15 - CONCLUSION: 1. Right IJ central venous catheter in place. No evidence of pneumothorax. 2. Persistent enlarged cardiac silhouette. 3. Mild pulmonary vascular congestion. 4. Small pleural effusions. Saul Campos MD Objective Remarks GENERAL: 65-year-old well-nourished female resting in bed on 2 L nasal cannula SKIN: Warm and dry. No rash HEAD: Atraumatic. Normocephalic. EYES: Pupils equal and round around 3 mm bilaterally and reactive. No scleral icterus. No injection or drainage. ENT: No nasal bleeding or discharge. Mucous membranes pink and moist. O2 via nasal cannula NECK: Trachea midline. No JVD. RIJ clean dry and intact CARDIOVASCULAR: Tachycardia, RR. S1, S2. No S4. 2/6 systolic murmur apex. RESPIRATORY: Few crackles appreciated in bases bilaterally. Breath sounds equal bilaterally. GASTROINTESTINAL: Abdomen soft, non-tender, nondistended. Hypoactive bowel sounds are appreciated MUSCULOSKELETAL: Extremities without any significant lower extremity edema. No obvious deformities. NEUROLOGICAL: Awake and alert. Cranial nerves II through XII grossly intact. No gross focal/sensory deficits. Follows commands in all 4 extremities. Urinary Catheter: Yes Assessment to: Continue Laura insert reason: ICU Pt Getting Diuretics Vascular Central Line Catheter: Yes Assessment to: Continue Date of Insertion: Apr 17, 2016 Line: Central Venous Catheter Side: Right Location: Internal, Jugular A/P Assessment and Plan Neurologic/Psych: Depression Anxiety disorder Medical Noncompliance Acetaminophen for fever [place]/morphine for pain management Continue Zoloft at 100 mg by mouth daily for depression, Ativan 0.5 mill grams every 6 hours as needed for anxiety Neurochecks per ICU protocol Respiratory: COPD Tobacco abuse Nasal cannula to maintain saturations greater than equal to 90% Incentive spirometry while awake States quit tobacco 3 weeks ago. No nicotine patch at this time As needed DuoNeb every 6 hours and every 4 hours as needed for shortness of breath On ProAir every 4 hours as needed home dyspnea Chest x-ray 04/17 revealed cardiomegaly and mild pulmonary congestion and small bilateral pleural effusions. Cardiovascular: Severe ischemic cardiomegaly Acute on chronic systolic heart failure ejection 10% Coronary artery disease S/P stents RCA placement (810 years ago) Dyslipidemia History of hypertension Hypotension likely cardiogenic shock Dopamine infusion currently at 6 mcg/mg/m, maintain MAP >65mmHg Continue ASA 81 mg daily, digoxin 0.125 mg daily. Digoxin level 0.4 on 04/16. Recheck in a.m. Continue atorvastatin 40 mg daily for dyslipidemia, Coreg 6.25 mg twice a day (home dose 25 mg twice a day), losartan 125. milligrams daily held in light of hypotension. Echo 03/31/16-EF 1015%, diffuse hypokinesis, right atrium and ventricle severely dilated. Severe MR/TR. SHARONDA 48 mmHg EKG 04/16/16-LVH, LAD, sinus rhythm, no change from previous admission Troponins trending down. Peaked around 1 Resume Lasix at 20 mg by mouth daily/home dose Monitor CVP Renal: Acute on chronic Renal insufficiency Creatinine 1.6 on admission. Currently 1.1 Monitoring document UOP Strict I/Os FEN/GI: Hypokalemia Mild transaminitis Moderate protein calorie malnutrition Heart healthy diet Protonix for GI prophylaxis Colace/Senokot twice a day for bowel regimen Continue multivitamin, vitamin B q day Replete electrolytes per ICU protocol Received 30 mEq KCl by mouth 1 today. Recheck in a.m. Heme/ID: Coagulopathy Microcytic anemia Monitor CBC Trend INR, currently 1.3. Hold heparin am SQ dose. Repeat INR Endocrine: Glucose monitoring with low-dose sliding scale insulin with Accu-Cheks before meals/at bedtime per ICU protocol Prophylaxis GI Prophylaxis - Protonix PO DVT Prophylaxis-- SCDs Heparin 5000 SQ Lines: Right IJ central line (04/17) Dr Anderson, peripheral IVs 2 Dispo: Dr. Anderson consulted Hospice, discussed with Dr Eng and patient. Critical Care: The total critical care time was 35 minutes. Time to perform other separately billable procedures was not included in the critical care time. Travis Tee MD Apr 18, 2016 06:28
[2016-04-18] MEDS ORDERED: ACETAMINOPHEN 325 MG TAB PO PRN (06:30)
[2016-04-18] MEDS ORDERED: ONDANSETRON HCL 4 MG/2 ML VIAL IV PRN (06:30)
[2016-04-18] MEDS ORDERED: POTASSIUM CHLORIDE 10 MEQ CONTROLLED RELEASE TAB PO ONE (06:30)
[2016-04-18] MEDS ORDERED: MORPHINE SULFATE 4 MG/ML INJ IV PRN (06:30)
[2016-04-18] MEDS ORDERED: CHLORHEXIDINE GLUCONATE 2 % 1 PACK (2 CLOTHS) TOP PRN (06:30)
[2016-04-18] MEDS ORDERED: MISCELLANEOUS NURSING INFORMATION XX SCH (06:30)
[2016-04-18 06:45] LABS: BURR CELLS 1+ (NORMAL); OVALOCYTES 1+ (NORMAL)
[2016-04-18 06:46] LABS: SCAN/DIFF AUTO DIFF CONFIRMED
--- NOTE | 2016-04-18 06:54 | RADHPO ---
EXAM DATE/TIME: 04/18/2016 06:39 [facility] COMPARISON: CHEST SINGLE AP, April 17, 2016, 7:15. INDICATIONS : Short of breath. MEDICAL HISTORY : Hypertension. Chronic obstructive pulmonary disease. Congestive heart failure. SURGICAL HISTORY : Tonsillectomy. Coronary artery stent. ENCOUNTER: Subsequent ACUITY: 4 - 6 days PAIN SCORE: 5/10 LOCATION: Bilateral chest FINDINGS: The heart size is enlarged. There is a prosthetic valve in place. The right internal jugular central line is well placed. There is diffuse increased interstitial markings. There is some further increase density at the bases.CONCLUSION: Cardiomegaly and diffuse increased interstitial markings likely representing edema and CHF. The Incre ased density at the bases may be secondary to some alveolar filling or mild effusions. Ralph Ribeiro MD on April 18, 2016 at 6:51 Board Certified Radiologist. This report was verified electronically.
[2016-04-18] MEDS: HEPARIN SODIUM - SQ 10,000 UNITS/ML VIAL SQ SCH ×2 (06:55→17:42)
[2016-04-18] MEDS: INSULIN NovoLIN REGULAR SUPPLEMENTAL SCALE SQ SCH ×4 (07:00→20:27)
--- NOTE | 2016-04-18 08:16 | HHI.PR ---
Subjective History of Present Illness Patient have low blood pressure but appear comfortable on presser support Critical care on board cardiology following d/w [employer]SA[employer]PA[employer]AL Stanton at bed side no other issue. have CVP Line in place. Low Potassium resolvedl checked Magnesium level was 1.7. Review of Systems Constitutional Constitutional: Fatigue, Weakness Vitals/Results Intake & Output 04/17/16 04/17/16 04/18/16 15:00 23:00 07:00 Intake Total 1281 ml 378 ml Output Total 1700 ml 400 ml Balance -419 ml -22 ml Intake Oral 880 ml 240 ml IV Total 401 ml 138 ml Output Urine Total 1700 ml 400 ml Stool Total 0 ml Vital Signs Vital Signs Date Time Temp Pulse Resp B/P Pulse Ox O2 Delivery O2 Flow Rate FiO2 04/18/16 06:15 102 16 104/63 100 04/18/16 06:00 96 04/18/16 06:00 96 17 99/61 100 04/18/16 05:45 98 20 95/62 100 04/18/16 05:30 94 16 101/65 100 04/18/16 05:15 92 24 96/59 100 04/18/16 05:00 86 27 95/49 100 04/18/16 04:45 94 34 104/81 100 04/18/16 04:30 88 18 102/68 100 04/18/16 04:15 90 19 90/56 100 04/18/16 04:00 97.5 90 28 94/59 100 04/18/16 04:00 90 04/18/16 03:45 90 18 92/54 100 04/18/16 03:15 88 27 102/51 100 04/18/16 03:00 88 28 95/58 100 04/18/16 02:45 90 16 97/62 100 04/18/16 02:30 88 32 84/56 100 04/18/16 02:15 86 43 69/49 100 04/18/16 02:00 86 04/18/16 02:00 86 35 87/60 100 04/18/16 01:49 86 29 84/41 100 04/18/16 01:00 86 27 92/56 100 04/18/16 00:00 98.7 90 32 83/60 99 04/18/16 00:00 99 Nasal Cannula 2.00 04/18/16 00:00 90 2/19/17 23:24 90 27 107/56 100 2/19/17 22:08 90 23 107/61 100 2/19/17 22:00 90 219/17 21:53 90 35 102/59 100 219/17 21:43 86 29 100/57 100 219/17 21:23 90 25 107/62 100 219/17 21:23 90 25 107/62 100 219/17 21:08 90 24 91/56 100 219/17 20:53 94 23 101/59 100 219/17 20:38 94 25 108/62 100 219/17 20:23 96 30 96/58 100 219/17 20:22 100 Nasal Cannula 2.00 19/17 20:08 98.7 94 24 112/68 100 219/17 20:00 98 2/19/17 19:53 98 24 101/60 100 2/19/17 19:38 100 18 102/62 100 219/17 19:23 96 24 100/63 100 219/17 19:08 96 23 89/63 100 219/17 19:00 100 Nasal Cannula 2.00 219/17 18:38 96 29 97/70 100 219/17 18:23 92 21 93/62 100 219/17 18:08 94 24 92/60 100 219/17 18:00 90 219/17 17:53 88 33 93/55 100 2/19/17 17:38 88 33 95/61 100 219/17 17:23 86 23 86/57 100 219/17 17:08 90 22 90/55 100 219/17 16:53 86 16 80/53 100 219/17 16:38 84 19 83/54 100 2/19/17 16:35 88 28 74/50 2/19/17 16:23 90 24 85/59 100 219/17 16:08 84 2/19/17 16:08 98.1 84 20 90/58 100 219/17 15:53 86 23 85/58 100 219/17 15:39 86 21 70/46 100 219/17 15:38 84 21 62/45 100 219/17 15:23 86 18 87/55 100 2/19/17 15:08 88 22 96/68 100 04/17/16 14:53 84 20 83/54 100 04/17/16 14:38 82 21 89/54 100 04/17/16 14:23 84 31 83/56 100 04/17/16 14:08 82 24 69/47 100 04/17/16 14:00 80 04/17/16 13:53 80 24 83/52 100 04/17/16 13:38 82 22 91/52 100 04/17/16 13:23 84 22 77/54 100 04/17/16 13:08 88 33 72/55 100 04/17/16 12:53 84 22 73/36 100 04/17/16 12:38 84 17 85/60 100 04/17/16 12:23 97.4 90 21 82/52 100 04/17/16 12:08 86 20 80/57 100 04/17/16 12:00 84 04/17/16 11:53 86 19 81/53 100 04/17/16 11:38 82 20 77/50 100 04/17/16 11:23 78 17 70/36 100 04/17/16 11:08 78 15 72/52 99 04/17/16 10:53 76 16 75/46 98 04/17/16 10:38 68 15 73/42 99 04/17/16 10:25 74 17 79/43 99 04/17/16 10:23 78 33 74/38 04/17/16 10:08 84 23 94/54 100 04/17/16 10:05 100 Nasal Cannula 2.00 04/17/16 10:00 84 04/17/16 09:53 94 36 92/60 100 04/17/16 09:38 96 23 100/64 100 04/17/16 09:23 96 15 104/66 99 04/17/16 09:08 90 15 107/67 100 04/17/16 08:53 88 17 107/63 100 04/17/16 08:38 92 19 109/63 100 04/17/16 08:23 97.8 90 27 98/61 100 CBC/BMP: 04/18/16 0455 04/18/16 0455 Lab Results Laboratory Tests Test 04/18/16 04:55 White Blood Count 8.3 TH/MM3 Red Blood Count 3.93 MIL/MM3 Hemoglobin 9.1 GM/DL Hematocrit 30.2 % Mean Corpuscular Volume 76.8 FL Mean Corpuscular Hemoglobin 23.2 PG Mean Corpuscular Hemoglobin 30.2 % Concent Red Cell Distribution Width 19.0 % Platelet Count 251 TH/MM3 Mean Platelet Volume 8.1 FL Neutrophils (%) (Auto) 70.9 % Lymphocytes (%) (Auto) 12.2 % Monocytes (%) (Auto) 14.2 % Eosinophils (%) (Auto) 2.1 % Basophils (%) (Auto) 0.6 % Neutrophils # (Auto) 5.9 TH/MM3 Lymphocytes # (Auto) 1.0 TH/MM3 Monocytes # (Auto) 1.2 TH/MM3 Eosinophils # (Auto) 0.2 TH/MM3 Basophils # (Auto) 0.0 TH/MM3 CBC Comment AUTO DIFF Differential Comment AUTO DIFF CONFIRMED Ovalocytes 1+ Tenisha Cells 1+ Prothrombin Time 14.7 SEC Prothromb Time International 1.3 RATIO Ratio Sodium Level 139 MEQ/L Potassium Level 3.5 MEQ/L Chloride Level 101 MEQ/L Carbon Dioxide Level 29.6 MEQ/L Anion Gap 8 MEQ/L Blood Urea Nitrogen 45 MG/DL Creatinine 1.10 MG/DL Estimat Glomerular Filtration 50 ML/MIN Rate Random Glucose 102 MG/DL Calcium Level 7.8 MG/DL Phosphorus Level 2.5 MG/DL Magnesium Level 1.7 MG/DL Total Bilirubin 0.7 MG/DL Aspartate Amino Transf 70 U/L (AST/SGOT) Alanine Aminotransferase 67 U/L (ALT/SGPT) Alkaline Phosphatase 84 U/L B-Type Natriuretic Peptide 3629 PG/ML Total Protein 4.9 GM/DL Albumin 2.2 GM/DL Physical Exam General General Appearance: No Acute Distress, Comfortable Eyes Eye Exam: Pupils Equal, Pupils Reactive, Sclera White, Extraocular Movement Intact Throat Throat Exam: Oral Mucosa Marie & Moist, Oral Pharynx Normal Neck Neck Exam: Neck Supple, Trachea Midline Pulmonary Resp Exam: Clear Bilaterally, Breath Sounds Equal Cardiology CV Exam: Regular, Normal Sinus Rhythm Gastrointestinal/Abdomen GI Exam: Soft, Non-Tender, Bowel Sounds Present Integumentary Skin Exam: Clear, Warm, Dry, Intact, Normal Turgor Neurologic Neuro Exam: Alert, Awake, Oriented, Moving All Extremities, No Focal Deficits VTE Prophylaxis VTE Prophylaxis Meds: Heparin PUD Prophylasis PUD Prophylaxis: Protonix Assessment/Plan Assessment/Plan ASSESSMENT AND PLAN 1. This is a 65-year-old female who came to the ER diagnosed with shortness of breath, cough, wheezing most likely secondary to COPD exacerbation as well as acute on chronic systolic congestive heart failure with elevation of troponin and CPK. The patient is on Lasix. The patient does have low blood pressure, monitoring blood pressure very carefully. We will take I&Os daily, fluid restriction to 1.5 liters per day, salt restriction to 2 grams per day. Cardiology is seeing the patient. The patient had poor medication compliance. We want to continue the Carvedilol with the Cozaar as tolerated by blood pressure. 2. Renal failure. We are monitoring BUN and creatinine. 3. Elevated CPK, most probably rhabdomyolysis. Cannot give too much IV fluids. I will consult Nephrology with rhabdomyolysis as well as chronic renal failure. 4. High LFTs, most likely secondary to hypoperfusion and low blood pressure. 5. Moderate to severe mitral regurgitation. 6. Cardiomyopathy with severe left ventricular systolic dysfunction, ejection fraction of 10-15%. Coronary artery disease, status post stenting in the right coronary artery. The patient is also status post mitral valve repair/replacement. 7. History of anxiety and depression. Continue home medications. 8. Noncompliance with medication. 9. Anemia secondary to chronic medical diseases. 10. High troponin with renal failure. Cardiology is seeing the patient. Further recommendation per Cardiology. 11. Elevated INR at 1.6. The patient is not on any Coumadin. We will monitor. 12. Hypotension, carefully giving Carvedilol and Lasix per Cardiology and also getting spironolactone. 13. DVT prophylaxis. The patient to have heparin 5000 units subcutaneous twice a day. 14. GI prophylaxis. Protonix 40 mg p.o. daily. 15. Nausea and vomiting. The patient on Zofran 4 mg IV q. 6 hours p.r.n. nausea and vomiting. 16. History of hyperlipidemia. Continue Lipitor 40 mg p.o. daily. 17. History of anxiety. Ativan 0.5 mg p.o. q.6 hours p.r.n. anxiety. 18. History of COPD. Continue home medications. The patient is on DuoNeb nebulization. We are going to manage the patient on a daily basis and make recommendations on a daily basis. Discussed Condition with: Patient Black Borja MD Apr 18, 2016 08:16
[2016-04-18] MEDS: SERTRALINE HCL 50 MG TAB PO SCH (08:45)
[2016-04-18] MEDS: FUROSEMIDE 20 MG TAB PO SCH (08:45)
[2016-04-18] MEDS: MULTIVITAMIN TAB PO SCH (08:45)
[2016-04-18] MEDS: ASCORBIC ACID 500 MG TAB PO SCH (08:45)
[2016-04-18] MEDS: PANTOPRAZOLE SOD 40 MG DELAYED RELEASE TAB PO SCH (08:45)
[2016-04-18] MEDS: CARVEDILOL 6.25 MG TAB PO SCH ×2 (08:45→20:22)
[2016-04-18] MEDS: PILL SPLITTER OTHER PRN (08:45)
[2016-04-18] MEDS: VITAMIN B COMPLEX/VIT C TAB PO SCH (08:45)
[2016-04-18] MEDS: ASPIRIN EC 81 MG TABEC PO SCH (08:45)
[2016-04-18] MEDS: DIGOXIN 0.125 MG TAB PO SCH (08:46)
[2016-04-18] MEDS: MUPIROCIN 2% OINT 1 APPLIC/GM SYR NASAL SCH ×2 (08:46→20:31)
[2016-04-18] MEDS: SODIUM CHLORIDE 0.9% FLUSH 5 ML FLUSH IV FLUSH SCH ×2 (08:46→20:22)
[2016-04-18] MEDS: ARTIFICIAL TEARS OPTH SOLN 15 ML BTL EACH EYE SCH ×3 (08:46→17:42)
[2016-04-18] MEDS: SENNOSIDES 8.6 MG TAB PO SCH ×2 (08:47→20:23)
[2016-04-18] MEDS: DOCUSATE SODIUM 100 MG CAP PO SCH ×2 (08:47→20:22)
[2016-04-18] MEDS: LOSARTAN 25 MG TAB PO SCH (08:47)
[2016-04-18] MEDS ORDERED: MUPIROCIN 2% OINT 1 APPLIC/GM SYR EACH NARE SCH (09:00)
[2016-04-18] MEDS ORDERED: POLYETHYLENE GLYCOL 17 GM PKG PO SCH (09:00)
--- NOTE | 2016-04-18 09:02 | PD.CARD.PN ---
Subjective Subjective Remarks No CP, mild SOB, feels depressed, difficult to wean dopa Objective Medications Current Medications Medications (Trade) Dose Ordered Sig/Elza Route Start Time Stop Time Status Last Admin (Heparin Inj) 5,000 units Q12H SQ 04/16/16 06:00 04/18/16 06:55 (Cozaar) 12.5 mg DAILY PO 04/16/16 09:00 04/16/16 09:58 (Ecotrin Ec) 81 mg DAILY PO 04/16/16 09:00 04/18/16 08:45 (Lipitor) 40 mg HS PO 04/16/16 21:00 04/17/16 21:26 (Lanoxin) 0.125 mg DAILY PO 04/16/16 09:00 04/18/16 08:46 (Ativan) 0.5 mg Q6H PRN PO 04/16/16 07:15 04/17/16 22:24 (Theragran) 1 tab DAILY PO 04/16/16 09:00 04/18/16 08:45 (Transderm-Scop 1.5 Mg Patch.72 Hr) 1 patch Q72H TD 04/16/16 09:00 (Zoloft) 100 mg DAILY PO 04/16/16 09:00 04/18/16 08:45 (Vitamin C) 250 mg DAILY PO 04/16/16 09:00 04/18/16 08:45 ([place] C) 1 tab DAILY PO 04/16/16 09:00 04/18/16 08:45 (Pill Splitter) 1 ea UNSCH PRN OTHER 04/16/16 07:30 04/18/16 08:45 Miscellaneous Information 1 Q72H TD 04/19/16 09:00 (Zofran Inj) 4 mg Q6H PRN IV 04/16/16 11:00 04/16/16 10:58 (Protonix) 40 mg DAILY PO 04/16/16 11:00 04/18/16 08:45 (Mag-Al Plus Susp Liq) 30 ml Q4H PRN PO 04/16/16 11:00 04/16/16 13:20 Carvedilol 6.25 mg 6.25 mg Q12HR PO 04/16/16 21:00 04/18/16 08:45 (DOPamine INJ PREMIX) 500 ml @ 0 mls/hr TITRATE IV 04/16/16 17:00 04/18/16 03:02 (Colace) 100 mg BID PO 04/17/16 09:00 04/17/16 21:26 Miscellaneous Information 1 Q361D XX 04/17/16 08:15 04/17/16 08:15 (Chlorhexidine 2% Cloth) 3 pack Taper DAILY@04 TOP 04/18/16 04:00 04/14/17 03:59 04/18/16 03:02 Chlorhexidine Gluconate 3 pack 3 pack UNSCH PRN TOP 04/17/16 08:15 Potassium Chloride 100 ml @ 50 mls/hr Q2H PRN IV 04/17/16 08:15 04/17/16 12:16 (KCl 20 Meq Premix Inj) 100 ml @ 50 mls/hr Q2H PRN IV 04/17/16 08:15 Potassium Chloride 40 meq 40 meq UNSCH PRN PO/TUBE 04/17/16 08:15 Potassium Chloride 100 ml @ 25 mls/hr UNSCH PRN IV 04/17/16 08:15 04/18/16 08:54 Potassium Chloride 100 ml @ 50 mls/hr Q2H PRN IV 04/17/16 08:15 (Magnesium Sulfate Inj/NS Inj) 100 ml @ 50 mls/hr UNSCH PRN IV 04/17/16 08:15 Magnesium Oxide 800 mg 800 mg UNSCH PRN PO 04/17/16 08:15 (Magnesium Sulfate Inj/NS Inj) 100 ml @ 50 mls/hr UNSCH PRN IV 04/17/16 08:15 Potassium Phosphate 2000 mg 2,000 mg Q4H PRN PO 04/17/16 08:15 (Sodium Phosphate Inj/NS 250 ml Inj) 250 ml @ 42 mls/hr UNSCH PRN IV 04/17/16 08:15 (KCl 40 Meq/30 ml Liq) 40 meq UNSCH PRN PO/TUBE 04/17/16 08:15 Potassium Phosphate 2000 mg 2,000 mg UNSCH PRN PO/TUBE 04/17/16 08:15 (Potassium Phosphate Inj/NS 250 ml Inj) 260 ml @ 42 mls/hr UNSCH PRN IV 04/17/16 08:15 (D50w (Vial) Inj) 25 ml UNSCH PRN IV PUSH 04/17/16 08:15 (Glucagon Inj) 1 mg UNSCH PRN OTHER 04/17/16 08:15 (Bactroban Nasal 2% Oint) 1 applic BID NASAL 04/17/16 10:00 04/21/16 21:01 04/18/16 08:46 (Bactroban Nasal 2% Oint) 1 applic Taper BID EACH NARE 04/18/16 09:00 04/14/17 08:59 Miscellaneous Information 1 Q361D XX 04/18/16 06:30 04/18/16 06:30 (Chlorhexidine 2% Cloth) 3 pack Taper DAILY@04 TOP 04/19/16 04:00 04/15/17 03:59 (Chlorhexidine 2% Cloth) 3 pack UNSCH PRN TOP 04/18/16 06:30 (Senokot) 8.6 mg Q12HR PO 04/18/16 09:00 (Miralax) 17 gm DAILY PO 04/18/16 09:00 (Lasix) 20 mg DAILY PO 04/18/16 09:00 04/18/16 08:45 (NS Flush) 2 ml UNSCH PRN IV FLUSH 04/18/16 06:30 (NS Flush) 2 ml BID IV FLUSH 04/18/16 09:00 04/18/16 08:46 (Tylenol) 650 mg Q6H PRN PO 04/18/16 06:30 ([place] 5-325 Mg) 1 tab Q4H PRN PO 04/18/16 06:30 (Morphine Inj) 2 mg Q2H PRN IV 04/18/16 06:30 (Tears Naturale Opth Soln) 1 drop TID EACH EYE 04/18/16 09:00 (Zofran Inj) 4 mg Q6H PRN IV 04/18/16 06:30 Vital Signs / I&O Vital Signs Date Time Temp Pulse Resp B/P Pulse Ox O2 Delivery O2 Flow Rate FiO2 04/18/16 06:15 102 16 104/63 100 04/18/16 06:00 96 04/18/16 06:00 96 17 99/61 100 04/18/16 05:45 98 20 95/62 100 04/18/16 05:30 94 16 101/65 100 04/18/16 05:15 92 24 96/59 100 04/18/16 05:00 86 27 95/49 100 2017 04:45 94 34 104/81 100 2017 04:30 88 18 102/68 100 2017 04:15 90 19 90/56 100 17 04:00 97.5 90 28 94/59 100 04/18/16 04:00 90 04/18/16 03:45 90 18 92/54 100 04/18/16 03:15 88 27 102/51 100 04/18/16 03:00 88 28 95/58 100 04/18/16 02:45 90 16 97/62 100 04/18/16 02:30 88 32 84/56 100 04/18/16 02:15 86 43 69/49 100 04/18/16 02:00 86 04/18/16 02:00 86 35 87/60 100 04/18/16 01:49 86 29 84/41 100 04/18/16 01:00 86 27 92/56 100 04/18/16 00:00 98.7 90 32 83/60 99 04/18/16 00:00 99 Nasal Cannula 2.00 04/18/16 00:00 90 04/17/16 23:24 90 27 107/56 100 04/17/17 22:08 90 23 107/61 100 17 22:00 90 17 21:53 90 35 102/59 100 17 21:43 86 29 100/57 100 17 21:23 90 25 107/62 100 04/17/17 21:23 90 25 107/62 100 1917 21:08 90 24 91/56 100 19/17 20:53 94 23 101/59 100 19/17 20:38 94 25 108/62 100 19/17 20:23 96 30 96/58 100 19/17 20:22 100 Nasal Cannula 2.00 17 20:08 98.7 94 24 112/68 100 19/17 20:00 98 19/17 19:53 98 24 101/60 100 19/17 19:38 100 18 102/62 100 19/17 19:23 96 24 100/63 100 19/17 19:08 96 23 89/63 100 2/19/17 19:00 100 Nasal Cannula 2.00 04/17/17 18:38 96 29 97/70 100 19/17 18:23 92 21 93/62 100 04/17/17 18:08 94 24 92/60 100 04/17/17 18:00 90 04/17/17 17:53 88 33 93/55 100 04/17/17 17:38 88 33 95/61 100 19/17 17:23 86 23 86/57 100 17 17:08 90 22 90/55 100 17 16:53 86 16 80/53 100 17 16:38 84 19 83/54 100 04/17/17 16:35 88 28 74/50 17 16:23 90 24 85/59 100 17 16:08 84 17 16:08 98.1 84 20 90/58 100 17 15:53 86 23 85/58 100 17 15:39 86 21 70/46 100 17 15:38 84 21 62/45 100 17 15:23 86 18 87/55 100 17 15:08 88 22 96/68 100 17 14:53 84 20 83/54 100 17 14:38 82 21 89/54 100 17 14:23 84 31 83/56 100 17 14:08 82 24 69/47 100 17 14:00 80 17 13:53 80 24 83/52 100 17 13:38 82 22 91/52 100 17 13:23 84 22 77/54 100 17 13:08 88 33 72/55 100 04/17/17 12:53 84 22 73/36 100 17 12:38 84 17 85/60 100 17 12:23 97.4 90 21 82/52 100 17 12:08 86 20 80/57 100 17 12:00 84 17 11:53 86 19 81/53 100 17 11:38 82 20 77/50 100 17 11:23 78 17 70/36 100 2/19/17 11:08 78 15 72/52 99 04/17/16 10:53 76 16 75/46 98 04/17/16 10:38 68 15 73/42 99 04/17/16 10:25 74 17 79/43 99 04/17/16 10:23 78 33 74/38 04/17/16 10:08 84 23 94/54 100 04/17/16 10:05 100 Nasal Cannula 2.00 04/17/16 10:00 84 04/17/16 09:53 94 36 92/60 100 04/17/16 09:38 96 23 100/64 100 04/17/16 09:23 96 15 104/66 99 04/17/16 09:08 90 15 107/67 100 I/O 04/17/16 04/17/16 04/17/16 04/18/16 04/18/16 04/18/16 07:00 15:00 23:00 07:00 15:00 23:00 Intake Total 1281 ml 378 ml Output Total 1700 ml 400 ml Balance -419 ml -22 ml Intake Oral 880 ml 240 ml IV Total 401 ml 138 ml Output Urine Total 1700 ml 400 ml Stool Total 0 ml Physical Exam GENERAL: In mild distress SKIN: Warm and dry. HEAD: Normocephalic. EYES: No scleral icterus. No injection or drainage. NECK: Supple, trachea midline. No JVD or lymphadenopathy. CARDIOVASCULAR: Regular rate and rhythm with 1/6 syst murmur, S3 gallop. RESPIRATORY: Breath sounds equal bilaterally. No accessory muscle use. Few crackles. GASTROINTESTINAL: Abdomen soft, non-tender, nondistended. MUSCULOSKELETAL: No cyanosis, trace edema. Laboratory Laboratory Tests Test 04/18/16 04:55 White Blood Count 8.3 TH/MM3 Red Blood Count 3.93 MIL/MM3 Hemoglobin 9.1 GM/DL Hematocrit 30.2 % Mean Corpuscular Volume 76.8 FL Mean Corpuscular Hemoglobin 23.2 PG Mean Corpuscular Hemoglobin 30.2 % Concent Red Cell Distribution Width 19.0 % Platelet Count 251 TH/MM3 Mean Platelet Volume 8.1 FL Neutrophils (%) (Auto) 70.9 % Lymphocytes (%) (Auto) 12.2 % Monocytes (%) (Auto) 14.2 % Eosinophils (%) (Auto) 2.1 % Basophils (%) (Auto) 0.6 % Neutrophils # (Auto) 5.9 TH/MM3 Lymphocytes # (Auto) 1.0 TH/MM3 Monocytes # (Auto) 1.2 TH/MM3 Eosinophils # (Auto) 0.2 TH/MM3 Basophils # (Auto) 0.0 TH/MM3 CBC Comment AUTO DIFF Differential Comment AUTO DIFF CONFIRMED Ovalocytes 1+ Tenisha Cells 1+ Prothrombin Time 14.7 SEC Prothromb Time International 1.3 RATIO Ratio Sodium Level 139 MEQ/L Potassium Level 3.5 MEQ/L Chloride Level 101 MEQ/L Carbon Dioxide Level 29.6 MEQ/L Anion Gap 8 MEQ/L Blood Urea Nitrogen 45 MG/DL Creatinine 1.10 MG/DL Estimat Glomerular Filtration 50 ML/MIN Rate Random Glucose 102 MG/DL Calcium Level 7.8 MG/DL Phosphorus Level 2.5 MG/DL Magnesium Level 1.7 MG/DL Total Bilirubin 0.7 MG/DL Aspartate Amino Transf 70 U/L (AST/SGOT) Alanine Aminotransferase 67 U/L (ALT/SGPT) Alkaline Phosphatase 84 U/L B-Type Natriuretic Peptide 3629 PG/ML Total Protein 4.9 GM/DL Albumin 2.2 GM/DL Assessment and Plan Problem List: (1) Acute on chronic systolic (congestive) heart failure (2) Hx of mitral valve repair (3) Tricuspid regurgitation (4) Mitral regurgitation (5) GERMÁN (acute kidney injury) (6) COPD exacerbation (7) Arteriosclerotic heart disease (ASHD) (8) Non compliance w medication regimen (9) Cardiomyopathy Assessment and Plan Continue to wean dopa. Decrease carvedilol dose if unsuccessful. Hold ARB for now. Replace K. Hospice consult. Sergio Gillis MD Apr 18, 2016 09:02
[2016-04-18] MEDS: RESP: ALBUTEROL 2.5 MG/IPRATROPIUM 0.5 MG NEB (SCH) INH ×3 (09:48→22:38)
--- NOTE | 2016-04-18 12:25 | MH ---
cc: BLACK GILLESPIE MD DATE OF ADMISSION: 04/16/2016 CHIEF COMPLAINT Shortness of breath, cough, wheezing. HISTORY OF PRESENT ILLNESS This is a 65-year female with past medical and surgical history significant for arthritis, COPD, coronary artery disease, cardiac catheterization with stent placement in the past, tobacco abuse, congestive heart failure, renal insufficiency, cardiomyopathy, history of arthritis, ejection fraction 10-15%, congestive heart failure, gastroesophageal reflux disease, mitral valve repair in the past and replacement, ex-smoker. She came to the ER at [facility] by private vehicle complaining of shortness of breath, cough, wheezing to the extent that she decided to come to the [facility]. She was hospitalized on March 29 to April 07 and the patient stated that she was not getting better and for the last few days she was getting worse. She has a nonproductive cough. She denies any fever or chills. No hemoptysis. No vomiting, diarrhea, no flank pain. No urinary tract infection symptoms. No lower back pain. No blood in stool or blood in urine. No UTI symptoms. She has been taking her Lasix and Carvedilol. Other than that, nothing significant. PAST MEDICAL-SURGICAL HISTORY As dictated above. SOCIAL HISTORY Denies drug abuse. Drinks alcohol socially. Ex-smoker. Quit three weeks ago. FAMILY HISTORY Significant for grandmother who had congestive heart failure. ALLERGY METOPROLOL, history of rash. MEDICATIONS 1. Spironolactone 12.5 mg p.o. daily. 2. Scopolamine patch one patch transdermal q. 72-hours. 3. Coreg 25 mg twice a day. 4. Lasix 20 mg p.o. daily. 5. Vitamin C 250 mg p.o. daily. 6. Vitamin B complex one p.o. daily. 7. Zoloft 100 mg p.o. daily. 8. Multivitamin p.o. daily. 9. Ativan 0.5 mg p.o. q.6 hours. 10. Digoxin 0.125 mg p.o. daily. 11. Lipitor 40 mg p.o. at bedtime. 12. Aspirin 81 mg daily. 13. Pro-Air 2 puffs inhalation q.4-6 hours. REVIEW OF SYSTEMS Positive for cough, congestion, wheezing and shortness of breath, feeling weak and tired. All other review of systems are negative. PHYSICAL EXAMINATION GENERAL: This is a 65-year female sitting on the bed, not in acute distress. VITAL SIGNS: Temperature 97.3, heart rate 74, respiration 23 and blood pressure was 77/41, O2 saturation 100% room air. HEENT: Normocephalic, atraumatic. EOMI. PERRL. Oral mucosa moist. NECK: Supple. No visible thyromegaly or neck mass. Trachea central. CVS: Regular rate and rhythm. RESPIRATORY: Bilateral crackles and wheezing. Very poor air entry bilaterally. ABDOMEN: Soft, nontender. Bowel sounds audible. EXTREMITIES: No cyanosis or clubbing. Full range of motion of all extremities. NEURO: Awake, alert, oriented x 4. No focal deficits. SKIN: Warm and dry. PSYCH: The patient is cooperative. Mood and affect is normal. LABORATORY DATA CBC totally unremarkable except for hemoglobin of 9.8 - low, medically 31.9 - low, MCV 75.4 - low, MCH is 23.1 - low, MCHC is 30.6 - low, RDW is 19.8 - high, platelet count 277,000, monos 1.0 high, ovalocytes +2 - high. BMP totally unremarkable except for sodium of 134 - low, chloride 95 - low, BUN 64 - high, creatinine 2.0 - high, calcium 8.2 - low, AST 113 - high , ALT 66 - high, creatinine kinase 244. Troponin-I 0.89 - high, troponin-I 1.09 - high. BNP greater than 50,000. Total protein 5.5, albumin 2.6, PT 18.4, INR 1.6, APTT 26.5. Digoxin 0.4 - low. CHEST X-RAY Shows severe cardiomegaly, no acute cardiopulmonary disease. ASSESSMENT AND PLAN 1. This is a 65-year-old female who came to the ER diagnosed with shortness of breath, cough, wheezing most likely secondary to COPD exacerbation as well as acute on chronic systolic congestive heart failure with elevation of troponin and CPK. The patient is on Lasix. The patient does have low blood pressure, monitoring blood pressure very carefully. We will take I&Os daily, fluid restriction to 1.5 liters per day, salt restriction to 2 grams per day. Cardiology is seeing the patient. The patient had poor medication compliance. We want to continue the Carvedilol with the Cozaar as tolerated by blood pressure. 2. Renal failure. We are monitoring BUN and creatinine. 3. Elevated CPK, most probably rhabdomyolysis. Cannot give too much IV fluids. I will consult Nephrology with rhabdomyolysis as well as chronic renal failure. 4. High LFTs, most likely secondary to hypoperfusion and low blood pressure. 5. Moderate to severe mitral regurgitation. 6. Cardiomyopathy with severe left ventricular systolic dysfunction, ejection fraction of 10-15%. Coronary artery disease, status post stenting in the right coronary artery. The patient is also status post mitral valve repair/replacement. 7. History of anxiety and depression. Continue home medications. 8. Noncompliance with medication. 9. Anemia secondary to chronic medical diseases. 10. High troponin with renal failure. Cardiology is seeing the patient. Further recommendation per Cardiology. 11. Elevated INR at 1.6. The patient is not on any Coumadin. We will monitor. 12. Hypotension, carefully giving Carvedilol and Lasix per Cardiology and also getting spironolactone. 13. DVT prophylaxis. The patient to have heparin 5000 units subcutaneous twice a day. 14. GI prophylaxis. Protonix 40 mg p.o. daily. 15. Nausea and vomiting. The patient on Zofran 4 mg IV q. 6 hours p.r.n. nausea and vomiting. 16. History of hyperlipidemia. Continue Lipitor 40 mg p.o. daily. 17. History of anxiety. Ativan 0.5 mg p.o. q.6 hours p.r.n. anxiety. 18. History of COPD. Continue home medications. The patient is on DuoNeb nebulization. We are going to manage the patient on a daily basis and make recommendations on a daily basis. Black Gillespie MD EA/ROSIE /12:54 PM /12:00 PM
[2016-04-18] MEDS: LORazepam 0.5 MG TAB PO PRN ×2 (17:41→23:36)
[2016-04-18] MEDS: ATORVASTATIN 40 MG TAB PO SCH (20:23)
[2016-04-18] MEDS: ACETAMINOPHEN/HYDROcodone 325 MG/5 MG TAB PO PRN (23:36)
[2016-04-19] VITALS (27 sets, daily range): BP systolic 86–115; BP diastolic 47–90; PULSE 80–100; RESP 20–37; TEMP 97.2–98.4; O2SAT 97–100
[2016-04-19] MEDS ORDERED: diphenhydrAMINE HCL 25 MG CAP PO SCH (00:45)
[2016-04-19] MEDS ORDERED: diphenhydrAMINE HCL 25 MG CAP PO PRN (00:45)
[2016-04-19] MEDS: RESP: ALBUTEROL 2.5 MG/IPRATROPIUM 0.5 MG NEB (SCH) INH ×4 (03:15→21:36)
[2016-04-19] MEDS ORDERED: CHLORHEXIDINE GLUCONATE 2 % 1 PACK (2 CLOTHS) TOP SCH (04:00)
[2016-04-19] MEDS: CHLORHEXIDINE GLUCONATE 2 % 1 PACK (2 CLOTHS) TOP SCH (04:00)
[2016-04-19 05:38] LABS: BASOPHIL # 0.1 TH/MM3 (0-0.2); BASOPHIL % 0.8 % (0.0-2.0); EOSINOPHIL # 0.2 TH/MM3 (0-0.4); EOSINOPHIL % 1.8 % (0.0-4.0); HEMATOCRIT 29.2 % (35.0-46.0); LYMPH % 14.7 % (9.0-44.0); LYMPHOCYTE # 1.3 TH/MM3 (1.0-4.8); MEAN CELL VOLUME 75.1 FL (80.0-100.0); MEAN CORPUSCULAR HGB CONC 30.7 % (32.0-36.0); MONO % 14.9 % (0.0-8.0); NEUT % 67.8 % (16.0-70.0); PLATELET COUNT 255 TH/MM3 (150-450); RED BLOOD COUNT 3.89 MIL/MM3 (4.00-5.30); RED CELL DISTRIBUTION WIDTH 18.9 % (11.6-17.2); WHITE BLOOD COUNT 8.9 TH/MM3 (4.0-11.0)
[2016-04-19] MEDS: INSULIN NovoLIN REGULAR SUPPLEMENTAL SCALE SQ SCH ×4 (05:44→21:00)
[2016-04-19 05:48] LABS: HEMO FLAGS AUTO DIFF
[2016-04-19 05:49] LABS: INTERNATIONAL NORMALIZED RATIO 1.4 RATIO; PROTHROMBIN TIME - PATIENT 15.3 SEC (9.8-11.6)
[2016-04-19] MEDS: LORazepam 0.5 MG TAB PO PRN ×2 (06:17→16:41)
[2016-04-19] MEDS: HEPARIN SODIUM - SQ 10,000 UNITS/ML VIAL SQ SCH ×2 (06:17→17:26)
[2016-04-19 06:24] LABS: ALKALINE PHOSPHATASE 82 U/L (45-117); ALT (GPT) 62 U/L (10-53); ANION GAP 10 MEQ/L (5-15); AST (GOT) 45 U/L (15-37); BICARBONATE 25.7 MEQ/L (21.0-32.0); BLOOD UREA NITROGEN 34 MG/DL (7-18); CHLORIDE 101 MEQ/L (98-107); GLOMERULAR FILTRATION RATE 50 ML/MIN (>89); MAGNESIUM 1.6 MG/DL (1.5-2.5); POTASSIUM 4.4 MEQ/L (3.5-5.1); SODIUM (NA) 137 MEQ/L (136-145); TOTAL BILIRUBIN ADULT 0.5 MG/DL (0.2-1.0)
[2016-04-19 06:48] LABS: DIGOXIN 0.8 NG/ML (0.8-2.0)
--- NOTE | 2016-04-19 06:54 | RADHPO ---
EXAM DATE/TIME: 04/19/2016 06:23 [facility] COMPARISON: CHEST SINGLE AP, April 18, 2016, 6:39. INDICATIONS : Short of breath. MEDICAL HISTORY : Congestive heart failure. Chronic obstructive pulmonary disease. Hypertension. SURGICAL HISTORY : Tonsillectomy. Coronary artery stent. ENCOUNTER: Initial ACUITY: 1 week PAIN SCORE: 5/10 LOCATION: Bilateral chest FINDINGS: The heart size is enlarged. There is a prosthetic valve in place. There is a right internal jugular c entral line in good position. This increased density at the right base. CONCLUSION: 1. Cardiomegaly 2. Increased density at the right base consistent with some degree of atelectasis or consolidation. Ralph Ribeiro MD on April 19, 2016 at 6:51 Board Certified Radiologist. This report was verified electronically.
--- NOTE | 2016-04-19 07:07 | HHI.CCPN ---
Subjective Remarks/Hospital Course This is a 65-year-old female that presented to the emergency department for evaluation of shortness of breath. Her previous admission 03/29-04/07 2016 for the same diagnosis.the patient had progressive dyspnea over the past few days, with a nonproductive cough. Patient has history significant for CAD with an ejection fraction 10-15%, previous stent placement cardiomegaly/cardiomyopathy CHF COPD chronic kidney disease and tobacco use. Patient denies any fever or chills. No report of hemoptysis. No vomiting or diarrhea. No flank pain or urinary symptoms. Patient has not noticed any lower extremity pain or swelling. Patient states frequently when she gets discharged from the hospital she just doesn't feel well enough to take the medications as prescribed and is depressed. Patient also reports noncompliance secondary to family not obtaining prescription medications. Last night the patient's MAP was noted to be in the 40's, the patient was placed on low-dose dopamine, admitted to ICU for management. 04/18: Afebrile. Resting in bed lying on her right side in no acute distress on 2 L nasal cannula. Denies chest pain or shortness of breath. Tolerating diet. Requesting coffee. Subjective 04/19: Off dopamine since 0. Complaining of insomnia. Also planing of shortness of breath despite improved physical examination. On room air. No peripheral edema. Output greater than input since admission. 2 BM Objective Vital Signs Date Time Temp Pulse Resp B/P Pulse Ox O2 Delivery O2 Flow Rate FiO2 04/19/16 06:00 98 24 115/90 98 04/19/16 04:00 97.7 04/18/16 22:35 21 04/18/16 19:42 Room Air 04/18/16 00:00 2.00 Intake and Output 04/18/16 04/18/16 04/19/16 08:00 16:00 00:00 Intake Total 378 ml 776 ml 440 ml Output Total 400 ml 800 ml 402 ml Balance -22 ml -24 ml 38 ml Result Diagram: 04/19/16 0515 04/19/16 0515 Imaging Last Impressions Chest X-Ray 04/18/16 06 Signed Impressions: Service Date/Time: Monday, April 18, 2016 06:39 - CONCLUSION: Cardiomegaly and diffuse increased interstitial markings likely representing edema and CHF. The Increased density at the bases may be secondary to some alveolar filling or mild effusions. Ralph Ribeiro MD Objective Remarks GENERAL: 65-year-old well-nourished female resting in bed on room air SKIN: Warm and dry. No rash HEAD: Atraumatic. Normocephalic. EYES: Pupils equal and round around 3 mm bilaterally and reactive. No scleral icterus. No injection or drainage. ENT: No nasal bleeding or discharge. Mucous membranes pink and moist. O2 via nasal cannula NECK: Trachea midline. No JVD. RIJ clean dry and intact CARDIOVASCULAR: Tachycardia, RR. S1, S2. No S4. 2/6 systolic murmur apex. RESPIRATORY: Very few fine crackles appreciated in bases bilaterally. Breath sounds equal bilaterally. GASTROINTESTINAL: Abdomen soft, non-tender, nondistended. Hypoactive bowel sounds are appreciated MUSCULOSKELETAL: Extremities without any significant lower extremity edema. No obvious deformities. NEUROLOGICAL: Awake and alert. Cranial nerves II through XII grossly intact. No gross focal/sensory deficits. Follows commands in all 4 extremities. Vascular Central Line Catheter: Yes Assessment to: Continue Date of Insertion: Apr 17, 2016 Line: Central Venous Catheter Side: Right Location: Internal, Jugular A/P Assessment and Plan Neurologic/Psych: Depression Anxiety disorder Medical Noncompliance Insomnia Acetaminophen for fever [place]/morphine for pain management Continue Zoloft at 100 mg by mouth daily for depression, Ativan 0.5 mill grams every 6 hours as needed for anxiety Neurochecks per ICU protocol Added melatonin 5 mg AT night when necessary for insomnia Respiratory: COPD Tobacco abuse Nasal cannula to maintain saturations greater than equal to 92% Incentive spirometry while awake States quit tobacco 3 weeks ago. No nicotine patch at this time As needed DuoNeb every 6 hours and every 4 hours as needed for shortness of breath Added a cappella every 6 hours On ProAir every 4 hours as needed home dyspnea Chest x-ray 04/19 revealed cardiomegaly and mild pulmonary congestion and small bilateral pleural effusions. Possible increased consolidation right lower lobe Cardiovascular: Severe ischemic cardiomegaly Acute on chronic systolic heart failure ejection 10% Coronary artery disease S/P stents RCA placement (810 years ago) Dyslipidemia History of hypertension Hypotension likely cardiogenic shock Dopamine infusion discontinued as of 229, maintain MAP >65mmHg Continue ASA 81 mg daily, digoxin 0.125 mg daily. Digoxin level 0.8 on 04/19. Continue atorvastatin 40 mg daily for dyslipidemia, Coreg 3.125 mg twice a day (home dose 25 mg twice a day), losartan 6.25. milligrams daily to be resumed Echo 03/31/16-EF 1015%, diffuse hypokinesis, right atrium and ventricle severely dilated. Severe MR/TR. SHARONDA 48 mmHg EKG 04/16/16-LVH, LAD, sinus rhythm, no change from previous admission Troponins trending down. Peaked around 1 Resume Lasix at 20 mg IV twice a day/on 20 mg by mouth daily at home Monitor CVP every 6 hours Renal: Acute on chronic Renal insufficiency Creatinine 1.6 on admission. Currently 1.1 Monitoring document UOP Strict I/Os FEN/GI: Mild transaminitis Moderate protein calorie malnutrition Heart healthy diet Protonix for GI prophylaxis Colace/Senokot twice a day for bowel regimen Continue multivitamin, vitamin B q day Replete electrolytes per ICU protocol Heme/ID: Coagulopathy Microcytic anemia Monitor CBC Trend INR, currently 1.2 Endocrine: Glucose monitoring with low-dose sliding scale insulin with Accu-Cheks before meals/at bedtime per ICU protocol Prophylaxis GI Prophylaxis - Protonix PO DVT Prophylaxis-- SCDs Heparin 5000 SQ Lines: Right IJ central line (04/17) Dr Anderson, peripheral IVs 2 Dispo: Dr. Anderson consulted Hospice, discussed with Dr Eng and patient. Critical Care: The total critical care time was 35 minutes. Time to perform other separately billable procedures was not included in the critical care time. Travis Tee MD Apr 19, 2016 07:07
[2016-04-19] MEDS ORDERED: GLYCERIN ADULT 2 GM SUPP RECTAL PRN (07:15)
[2016-04-19 07:37] LABS: OVALOCYTES 1+ (NORMAL); SCAN/DIFF AUTO DIFF CONFIRMED
[2016-04-19] MEDS: MAGNESIUM SULFATE 1 GM PREMIX 100 ML IV SCH ×2 (08:14→09:37)
[2016-04-19] MEDS: LOSARTAN 25 MG TAB PO SCH (08:15)
[2016-04-19] MEDS: ASPIRIN EC 81 MG TABEC PO SCH (08:15)
[2016-04-19] MEDS: VITAMIN B COMPLEX/VIT C TAB PO SCH (08:15)
[2016-04-19] MEDS: ASCORBIC ACID 500 MG TAB PO SCH (08:15)
[2016-04-19] MEDS: MUPIROCIN 2% OINT 1 APPLIC/GM SYR NASAL SCH ×2 (08:15→21:25)
[2016-04-19] MEDS: DIGOXIN 0.125 MG TAB PO SCH (08:16)
[2016-04-19] MEDS: FUROSEMIDE 20 MG/2 ML VIAL IV PUSH SCH ×2 (08:16→17:27)
[2016-04-19] MEDS: SODIUM CHLORIDE 0.9% FLUSH 5 ML FLUSH IV FLUSH SCH ×2 (08:16→21:32)
[2016-04-19] MEDS: MULTIVITAMIN TAB PO SCH (08:16)
[2016-04-19] MEDS: SERTRALINE HCL 50 MG TAB PO SCH (08:16)
[2016-04-19] MEDS: PANTOPRAZOLE SOD 40 MG DELAYED RELEASE TAB PO SCH (08:16)
[2016-04-19] MEDS: CARVEDILOL 6.25 MG TAB PO SCH ×2 (08:16→21:26)
[2016-04-19] MEDS: REMOVE OLD SCOPOLAMINE PATCH TD SCH (08:17)
[2016-04-19] MEDS: DOCUSATE SODIUM 100 MG CAP PO SCH ×2 (08:17→21:27)
[2016-04-19] MEDS: SCOPOLAMINE 1.5 MG PATCH TD SCH (08:17)
[2016-04-19] MEDS: SENNOSIDES 8.6 MG TAB PO SCH ×2 (08:17→21:25)
[2016-04-19] MEDS: ARTIFICIAL TEARS OPTH SOLN 15 ML BTL EACH EYE SCH ×3 (08:17→17:26)
--- NOTE | 2016-04-19 08:17 | HHI.PR ---
Subjective History of Present Illness Patient have low blood pressure but appear comfortable on presser support Critical care on board cardiology following d/w [facility] [employer] at bed side no other issue. have CVP Line in place. Low Potassium resolved. checked Magnesium level was 1.6. Review of Systems Constitutional Constitutional: Fatigue, Weakness Vitals/Results Intake & Output 04/18/16 04/18/16 04/19/16 15:00 23:00 07:00 Intake Total 776 ml 440 ml 220 ml Output Total 800 ml 400 ml 250 ml Balance -24 ml 40 ml -30 ml Intake Oral 600 ml 440 ml 220 ml IV Total 176 ml Output Urine Total 800 ml 400 ml 250 ml Stool Total 0 ml 0 ml # Voids 1 2 # Bowel Movements 2 Vital Signs Vital Signs Date Time Temp Pulse Resp B/P Pulse Ox O2 Delivery O2 Flow Rate FiO2 04/19/16 06:00 98 24 115/90 98 04/19/16 06:00 95 04/19/16 05:00 92 20 103/62 100 04/19/16 04:00 96 04/19/16 04:00 97.7 90 26 94/57 04/19/16 03:00 98 24 99/52 100 04/19/16 02:00 94 04/19/16 01:05 92 26 92/56 04/19/16 01:02 92 24 94/49 04/19/16 00:00 90 04/19/16 00:00 98.4 90 21 103/56 99 04/18/16 23:00 94 27 102/59 04/18/16 22:35 98 21 04/18/16 22:00 86 24 109/59 04/18/16 22:00 86 04/18/16 21:00 88 25 107/67 04/18/16 20:18 82 22 95/51 99 04/18/16 20:00 83 04/18/16 20:00 86 23 99/59 100 04/18/16 19:42 100 Room Air 04/18/16 19:30 98.3 84 28 95/56 100 04/18/16 19:00 84 26 110/56 100 04/18/16 18:00 82 04/18/16 18:00 82 30 92/59 100 04/18/16 17:30 80 31 91/57 99 04/18/16 17:00 82 30 95/56 99 2/20/17 16:46 82 21 101/56 100 2/20/17 16:31 78 25 87/54 100 2/20/17 16:17 78 31 88/46 100 2/20/17 16:16 78 35 78/42 100 2/20/17 16:01 97.8 80 20 84/54 100 2/20/17 16:00 80 25 99 2/20/17 16:00 80 2/20/17 15:55 97 21 2/20/17 15:46 80 28 91/53 96 2/20/17 15:31 82 22 101/50 100 2/20/17 15:16 80 35 93/58 99 2/20/17 15:01 82 22 95/76 99 2/20/17 14:46 86 39 98/55 99 2/20/17 14:31 90 26 109/53 98 2/20/17 14:17 88 34 104/57 98 2/20/17 14:01 82 27 96/47 98 2/20/17 14:01 82 2/20/17 13:46 82 27 85/36 95 2/20/17 13:31 80 20 101/56 100 2/20/17 13:16 80 21 101/51 99 2/20/17 13:01 76 31 100/54 100 2/20/17 12:48 76 28 81/60 99 2/20/17 12:46 74 21 66/46 98 2/20/17 12:31 76 22 91/50 98 2/20/17 12:16 82 22 91/52 98 2/20/17 12:14 98.1 78 27 87/43 98 2/20/17 12:00 82 2/20/17 11:58 98/49 2/20/17 11:46 92 23 86/55 97 2/20/17 11:31 84 24 79/66 97 2/20/17 11:16 84 29 98/56 99 2/20/17 11:01 82 22 90/52 99 2/20/17 10:46 84 33 93/56 99 2/20/17 10:31 84 30 107/69 98 2/20/17 10:16 86 26 103/59 98 2/20/17 10:00 86 2/20/17 10:00 86 30 106/60 98 2/20/17 09:49 97 21 04/18/16 09:45 86 26 97/65 97 04/18/16 09:30 84 16 106/65 95 04/18/16 09:15 82 17 102/54 97 04/18/16 09:00 88 22 100/58 97 04/18/16 09:00 96 Room Air 04/18/16 08:45 94 8 93/46 99 04/18/16 08:30 96 25 110/66 100 CBC/BMP: 04/19/16 0515 04/19/16 0515 Lab Results Laboratory Tests Test 04/19/16 05:15 White Blood Count 8.9 TH/MM3 Red Blood Count 3.89 MIL/MM3 Hemoglobin 8.9 GM/DL Hematocrit 29.2 % Mean Corpuscular Volume 75.1 FL Mean Corpuscular Hemoglobin 23.0 PG Mean Corpuscular Hemoglobin 30.7 % Concent Red Cell Distribution Width 18.9 % Platelet Count 255 TH/MM3 Mean Platelet Volume 8.1 FL Neutrophils (%) (Auto) 67.8 % Lymphocytes (%) (Auto) 14.7 % Monocytes (%) (Auto) 14.9 % Eosinophils (%) (Auto) 1.8 % Basophils (%) (Auto) 0.8 % Neutrophils # (Auto) 6.0 TH/MM3 Lymphocytes # (Auto) 1.3 TH/MM3 Monocytes # (Auto) 1.3 TH/MM3 Eosinophils # (Auto) 0.2 TH/MM3 Basophils # (Auto) 0.1 TH/MM3 CBC Comment AUTO DIFF Differential Comment AUTO DIFF CONFIRMED Ovalocytes 1+ Prothrombin Time 15.3 SEC Prothromb Time International 1.4 RATIO Ratio Activated Partial 30.0 SEC Thromboplast Time Sodium Level 137 MEQ/L Potassium Level 4.4 MEQ/L Chloride Level 101 MEQ/L Carbon Dioxide Level 25.7 MEQ/L Anion Gap 10 MEQ/L Blood Urea Nitrogen 34 MG/DL Creatinine 1.10 MG/DL Estimat Glomerular Filtration 50 ML/MIN Rate Random Glucose 92 MG/DL Lactic Acid Level 2.0 mmol/L Calcium Level 7.7 MG/DL Phosphorus Level 2.1 MG/DL Magnesium Level 1.6 MG/DL Total Bilirubin 0.5 MG/DL Aspartate Amino Transf 45 U/L (AST/SGOT) Alanine Aminotransferase 62 U/L (ALT/SGPT) Alkaline Phosphatase 82 U/L Total Protein 5.0 GM/DL Albumin 2.3 GM/DL Digoxin Level 0.8 NG/ML Physical Exam General General Appearance: No Acute Distress, Comfortable Eyes Eye Exam: Pupils Equal, Pupils Reactive, Sclera White, Extraocular Movement Intact Throat Throat Exam: Oral Mucosa [place] & Moist, Oral Pharynx Normal Neck Neck Exam: Neck Supple, Trachea Midline Pulmonary Resp Exam: Clear Bilaterally, Breath Sounds Equal Cardiology CV Exam: Regular, Normal Sinus Rhythm Gastrointestinal/Abdomen GI Exam: Soft, Non-Tender, Bowel Sounds Present Integumentary Skin Exam: Clear, Warm, Dry, Intact, Normal Turgor Neurologic Neuro Exam: Alert, Awake, Oriented, Moving All Extremities, No Focal Deficits VTE Prophylaxis VTE Prophylaxis Meds: Heparin PUD Prophylasis PUD Prophylaxis: Protonix Assessment/Plan Assessment/Plan ASSESSMENT AND PLAN 1. This is a 65-year-old female who came to the ER diagnosed with shortness of breath, cough, wheezing most likely secondary to COPD exacerbation as well as acute on chronic systolic congestive heart failure with elevation of troponin and CPK. The patient is on Lasix. The patient does have low blood pressure, monitoring blood pressure very carefully. We will take I&Os daily, fluid restriction to 1.5 liters per day, salt restriction to 2 grams per day. Cardiology is seeing the patient. The patient had poor medication compliance. We want to continue the Carvedilol with the Cozaar as tolerated by blood pressure. 2. Renal failure. We are monitoring BUN and creatinine. 3. Elevated CPK, most probably rhabdomyolysis. Cannot give too much IV fluids. I will consult Nephrology with rhabdomyolysis as well as chronic renal failure. 4. High LFTs, most likely secondary to hypoperfusion and low blood pressure. 5. Moderate to severe mitral regurgitation. 6. Cardiomyopathy with severe left ventricular systolic dysfunction, ejection fraction of 10-15%. Coronary artery disease, status post stenting in the right coronary artery. The patient is also status post mitral valve repair/replacement. 7. History of anxiety and depression. Continue home medications. 8. Noncompliance with medication. 9. Anemia secondary to chronic medical diseases. 10. High troponin with renal failure. Cardiology is seeing the patient. Further recommendation per Cardiology. 11. Elevated INR at 1.6. The patient is not on any Coumadin. We will monitor. 12. Hypotension, carefully giving Carvedilol and Lasix per Cardiology and also getting spironolactone. 13. DVT prophylaxis. The patient to have heparin 5000 units subcutaneous twice a day. 14. GI prophylaxis. Protonix 40 mg p.o. daily. 15. Nausea and vomiting. The patient on Zofran 4 mg IV q. 6 hours p.r.n. nausea and vomiting. 16. History of hyperlipidemia. Continue Lipitor 40 mg p.o. daily. 17. History of anxiety. Ativan 0.5 mg p.o. q.6 hours p.r.n. anxiety. 18. History of COPD. Continue home medications. The patient is on DuoNeb nebulization. We are going to manage the patient on a daily basis and make recommendations on a daily basis. Discussed Condition with: Patient Black Borja MD Apr 19, 2016 08:17
[2016-04-19] MEDS: PILL SPLITTER OTHER PRN (08:20)
[2016-04-19] MEDS: POTASSIUM PHOSPHATE/SODIUM PHOSPHATE 250 MG TAB PO SCH ×3 (08:41→21:25)
[2016-04-19] MEDS ORDERED: POLYETHYLENE GLYCOL 17 GM PKG PO SCH (09:00)
[2016-04-19] MEDS ORDERED: LACTULOSE SYRUP 20 GM/30 ML CUP PO SCH (09:00)
[2016-04-19] MEDS ORDERED: SODIUM PHOSPHATE INJ 30 MMOL in SODIUM CHLOR 0.9% 250 ML INJ 240 ML IV ONE (10:00)
[2016-04-19] MEDS: SODIUM CHLORIDE 0.9% FLUSH 5 ML FLUSH IV FLUSH PRN (17:27)
[2016-04-19] MEDS: ATORVASTATIN 40 MG TAB PO SCH (21:25)
[2016-04-19] MEDS: MELATONIN 5 MG TAB PO PRN (22:00)
[2016-04-20] VITALS (34 sets, daily range): BP systolic 79–131; BP diastolic 42–78; PULSE 82–98; RESP 16–40; TEMP 97.4–98.2; O2SAT 95–98
[2016-04-20] MEDS: LORazepam 0.5 MG TAB PO PRN ×2 (00:03→18:23)
[2016-04-20] MEDS: CHLORHEXIDINE GLUCONATE 2 % 1 PACK (2 CLOTHS) TOP SCH (04:00)
[2016-04-20] MEDS: RESP: ALBUTEROL 2.5 MG/IPRATROPIUM 0.5 MG NEB (SCH) INH ×4 (04:50→19:57)
[2016-04-20 05:32] LABS: CHLORIDE 100 MEQ/L (98-107); POTASSIUM 3.9 MEQ/L (3.5-5.1); SODIUM (NA) 138 MEQ/L (136-145)
[2016-04-20 05:39] LABS: ANION GAP 8 MEQ/L (5-15); BICARBONATE 30.1 MEQ/L (21.0-32.0); BLOOD UREA NITROGEN 32 MG/DL (7-18); MAGNESIUM 1.6 MG/DL (1.5-2.5)
[2016-04-20 05:42] LABS: ALT (GPT) 56 U/L (10-53); AST (GOT) 33 U/L (15-37); GLOMERULAR FILTRATION RATE 50 ML/MIN (>89)
[2016-04-20 05:43] LABS: TOTAL BILIRUBIN ADULT 0.8 MG/DL (0.2-1.0)
[2016-04-20 05:44] LABS: ALKALINE PHOSPHATASE 74 U/L (45-117)
[2016-04-20 05:49] LABS: AUTOMATED NEUTROPHIL # 5.1 TH/MM3 (1.8-7.7); BASOPHIL # 0.1 TH/MM3 (0-0.2); BASOPHIL % 0.9 % (0.0-2.0); EOSINOPHIL # 0.1 TH/MM3 (0-0.4); HEMATOCRIT 28.2 % (35.0-46.0); LYMPH % 16.1 % (9.0-44.0); LYMPHOCYTE # 1.2 TH/MM3 (1.0-4.8); MEAN CELL VOLUME 75.3 FL (80.0-100.0); MEAN CORPUSCULAR HEMOGLOBIN 23.2 PG (27.0-34.0); MEAN CORPUSCULAR HGB CONC 30.9 % (32.0-36.0); PLATELET COUNT 275 TH/MM3 (150-450); RED BLOOD COUNT 3.75 MIL/MM3 (4.00-5.30); RED CELL DISTRIBUTION WIDTH 19.2 % (11.6-17.2); WHITE BLOOD COUNT 7.5 TH/MM3 (4.0-11.0)
[2016-04-20 06:14] LABS: HEMO FLAGS AUTO DIFF
--- NOTE | 2016-04-20 06:36 | RADHPO ---
EXAM DATE/TIME: 04/20/2016 06:08 [facility] COMPARISON: CHEST SINGLE AP, April 19, 2016, 6:23. INDICATIONS : Shortness of breath. MEDICAL HISTORY : Hypertension. Congestive heart failure. Chronic obstructive pulmonary disease. SURGICAL HISTORY : Coronary artery stent. ENCOUNTER: Subsequent ACUITY: 1 week PAIN SCORE: Non-responsive. LOCATION: Bilateral chest FINDINGS: The heart size is enlarged. There is a prosthetic valve in place. The right internal jugular central line is well placed. There is indistinctness of the vasculature. There some increased density at the right base. CONCLUSION: Cardiomegaly with increased interstitial markings representing CHF. There some further consolidation or effusion on the right side. Ralph Ribeiro MD on April 20, 2016 at 6:33 Board Certified Radiologist. This report was verified electronically.
[2016-04-20] MEDS: POTASSIUM PHOSPHATE/SODIUM PHOSPHATE 250 MG TAB PO SCH (06:44)
[2016-04-20] MEDS: INSULIN NovoLIN REGULAR SUPPLEMENTAL SCALE SQ SCH ×4 (06:45→20:36)
[2016-04-20] MEDS: HEPARIN SODIUM - SQ 10,000 UNITS/ML VIAL SQ SCH ×2 (06:45→18:00)
[2016-04-20 07:29] LABS: TARGET CELLS 1+ (NORMAL)
[2016-04-20 07:30] LABS: OVALOCYTES 1+ (NORMAL); SCAN/DIFF AUTO DIFF CONFIRMED
--- NOTE | 2016-04-20 07:39 | HHI.CCPN ---
Subjective Remarks/Hospital Course This is a 65-year-old female that presented to the emergency department for evaluation of shortness of breath. Her previous admission 03/29-04/07 2016 for the same diagnosis.the patient had progressive dyspnea over the past few days, with a nonproductive cough. Patient has history significant for CAD with an ejection fraction 10-15%, previous stent placement cardiomegaly/cardiomyopathy CHF COPD chronic kidney disease and tobacco use. Patient denies any fever or chills. No report of hemoptysis. No vomiting or diarrhea. No flank pain or urinary symptoms. Patient has not noticed any lower extremity pain or swelling. Patient states frequently when she gets discharged from the hospital she just doesn't feel well enough to take the medications as prescribed and is depressed. Patient also reports noncompliance secondary to family not obtaining prescription medications. Last night the patient's MAP was noted to be in the 40's, the patient was placed on low-dose dopamine, admitted to ICU for management. 04/18: Afebrile. Resting in bed lying on her right side in no acute distress on 2 L nasal cannula. Denies chest pain or shortness of breath. Tolerating diet. Requesting coffee. 04/19: Off dopamine since 229. Complaining of insomnia. Also planing of shortness of breath despite improved physical examination. On room air. No peripheral edema. Output greater than input since admission. 2 BM Subjective 04/20: Afebrile. 2 bowel movement overnight. Off dopamine 36 hours. Still complains of shortness of breath. Chest x-ray shows worsening right lower lobe infiltrate/consolidation. Needs to get out of bed and ambulate. Rash on abdomen noted Objective Vital Signs Date Time Temp Pulse Resp B/P Pulse Ox O2 Delivery O2 Flow Rate FiO2 04/20/16 06:00 90 04/20/16 06:00 16 111/69 04/20/16 05:00 98 04/20/16 04:00 97.4 04/19/16 21:36 21 04/19/16 07:00 Room Air 04/18/16 00:00 2.00 Intake and Output 04/19/16 04/19/16 04/20/16 08:00 16:00 00:00 Intake Total 220 ml 520 ml 440 ml Output Total 250 ml 550 ml 900 ml Balance -30 ml -30 ml -460 ml Result Diagram: 04/20/16 0455 04/20/16 0455 Imaging Last Impressions Chest X-Ray 04/20/16 0600 Signed Impressions: Service Date/Time: Wednesday, April 20, 2016 06:08 - CONCLUSION: Cardiomegaly with increased interstitial markings representing CHF. There some further consolidation or effusion on the right side. Ralph Ribeiro MD Objective Remarks GENERAL: 65-year-old well-nourished female resting in bed in no acute distress SKIN: Warm and dry. Non pruritic petechial rash abdomen. no bullae/vescicles HEAD: Atraumatic. Normocephalic. EYES: Pupils equal and round around 3 mm bilaterally and reactive. No scleral icterus. No injection or drainage. ENT: No nasal bleeding or discharge. Mucous membranes pink and moist. O2 via nasal cannula NECK: Trachea midline. No JVD. RIJ clean dry and intact CARDIOVASCULAR: Tachycardia, RR. S1, S2. No S4. 2/6 systolic murmur apex. RESPIRATORY: Very few fine crackles appreciated in bases bilaterally. Breath sounds equal bilaterally. GASTROINTESTINAL: Abdomen soft, non-tender, nondistended. Hypoactive bowel sounds are appreciated MUSCULOSKELETAL: Extremities without any significant lower extremity edema. No obvious deformities. NEUROLOGICAL: Awake and alert. Cranial nerves II through XII grossly intact. No gross focal/sensory deficits. Follows commands in all 4 extremities. Vascular Central Line Catheter: Yes Assessment to: Remove Date of Insertion: Apr 17, 2016 Line: Central Venous Catheter Side: Right Location: Internal, Jugular A/P Assessment and Plan Neurologic/Psych: Depression Anxiety disorder Medical Noncompliance Insomnia Acetaminophen for fever Swoope/morphine for pain management Continue Zoloft at 100 mg by mouth daily for depression, Ativan 0.5 mill grams every 6 hours as needed for anxiety Neurochecks per ICU protocol Added melatonin 5 mg AT night when necessary for insomnia Requip 0.25 mg at night for primary Currently not using scopolamine patch. Respiratory: COPD Tobacco abuse Nasal cannula to maintain saturations greater than equal to 92% Incentive spirometry while awake States quit tobacco 3 weeks ago. No nicotine patch at this time As needed DuoNeb every 6 hours and every 4 hours as needed for shortness of breath Continue a cappella every 6 hours On ProAir every 4 hours as needed home dyspnea Chest x-ray 04/20 revealed cardiomegaly and mild pulmonary congestion and small bilateral pleural effusions. What looks like increased consolidation right lower lobe Cardiovascular: Severe ischemic cardiomegaly Acute on chronic systolic heart failure ejection 10% Coronary artery disease S/P stents RCA placement (810 years ago) Dyslipidemia History of hypertension Hypotension likely cardiogenic shock Dopamine infusion discontinued as of 0230 on 04/19, maintain MAP >65mmHg Continue ASA 81 mg daily, digoxin 0.125 mg daily. Digoxin level 0.8 on 04/19. Continue atorvastatin 40 mg daily for dyslipidemia, Coreg 3.125 mg twice a day (home dose 25 mg twice a day), losartan 6.25. milligrams daily to be resumed Echo 03/31/16-EF 1015%, diffuse hypokinesis, right atrium and ventricle severely dilated. Severe MR/TR. SHARONDA 48 mmHg EKG 04/16/16-LVH, LAD, sinus rhythm, no change from previous admission Troponins trending down. Peaked around 1 Resume Lasix at 20 mg IV twice a day on 04/19/on 20 mg by mouth daily at home Discontinue CVP Renal: Acute on chronic Renal insufficiency Creatinine 1.6 on admission. Currently 1.1 Monitoring document UOP Strict I/Os FEN/GI: Mild transaminitis Moderate protein calorie malnutrition Heart healthy diet Protonix for GI prophylaxis Colace/Senokot twice a day for bowel regimen Continue multivitamin, vitamin B q day Replete electrolytes per ICU protocol Heme/ID: Coagulopathy Microcytic anemia Monitor CBC Trend INR, currently 1.2 Endocrine: Glucose monitoring with low-dose sliding scale insulin with Accu-Cheks before meals/at bedtime per ICU protocol MSK: Rash Hod heparin Prophylaxis GI Prophylaxis - Protonix PO DVT Prophylaxis-- SCDs Heparin 5000 SQ hold today. Lines: Right IJ central line (04/17) ->d/c today. Dr Anderson, peripheral IVs 2 Dispo: Dr. Anderson consulted Hospice, discussed with Dr Eng and patient. Critical Care: The total care time was 35 minutes. Time to perform other separately billable procedures was not included in the critical care time. Level I. We'll sign off. Call if questions arise. Travis Tee MD Apr 20, 2016 07:39
[2016-04-20] MEDS ORDERED: FUROSEMIDE 20 MG/2 ML VIAL IV PUSH ONE (08:00)
--- NOTE | 2016-04-20 08:20 | HHI.PR ---
Subjective History of Present Illness Patient have low blood pressure but appear comfortable off presser support d/ w RN no other issue. have CVP Line in place. Low Potassium resolved. checked Magnesium level was 1.6. Review of Systems Constitutional Constitutional: Fatigue, Weakness Vitals/Results Intake & Output 04/19/16 04/19/16 04/20/16 15:00 23:00 07:00 Intake Total 520 ml 440 ml 200 ml Output Total 550 ml 500 ml 550 ml Balance -30 ml -60 ml -350 ml Intake Oral 520 ml 440 ml 200 ml Output Urine Total 550 ml 500 ml 550 ml # Voids 2 # Bowel Movements 0 0 2 Vital Signs Vital Signs Date Time Temp Pulse Resp B/P Pulse Ox O2 Delivery O2 Flow Rate FiO2 04/20/16 06:00 90 04/20/16 06:00 90 16 111/69 04/20/16 05:00 94 21 96/64 98 04/20/16 04:00 86 04/20/16 04:00 97.4 86 18 101/60 04/20/16 02:00 90 04/20/16 02:00 90 23 90/50 04/20/16 01:06 86 24 96/57 04/20/16 01:00 82 17 79/42 04/20/16 00:00 86 04/20/16 00:00 98.2 86 27 100/56 97 04/19/16 23:25 92 22 95/52 04/19/16 23:00 86 20 86/47 98 04/19/16 22:01 96 22 114/67 04/19/16 22:00 94 04/19/16 21:36 97 21 04/19/16 21:00 90 22 108/65 04/19/16 20:00 98.1 90 25 108/60 99 04/19/16 20:00 82 04/19/16 18:00 96 25 102/62 04/19/16 18:00 96 04/19/16 17:00 92 28 99/64 04/19/16 16:00 97.9 80 21 92/63 04/19/16 16:00 80 04/19/16 15:00 86 30 94/63 04/19/16 14:00 82 21 94/51 04/19/16 14:00 82 04/19/16 13:00 94 35 94/65 04/19/16 12:00 84 04/19/16 12:00 98.1 84 22 97/48 99 04/19/16 11:00 90 23 99/60 04/19/16 10:00 92 37 90/56 04/19/16 10:00 92 04/19/16 09:00 92 26 110/61 CBC/BMP: 04/20/16 0455 04/20/16 0455 Lab Results Laboratory Tests Test 04/20/16 04:55 White Blood Count 7.5 TH/MM3 Red Blood Count 3.75 MIL/MM3 Hemoglobin 8.7 GM/DL Hematocrit 28.2 % Mean Corpuscular Volume 75.3 FL Mean Corpuscular Hemoglobin 23.2 PG Mean Corpuscular Hemoglobin 30.9 % Concent Red Cell Distribution Width 19.2 % Platelet Count 275 TH/MM3 Mean Platelet Volume 8.3 FL Neutrophils (%) (Auto) 67.0 % Lymphocytes (%) (Auto) 16.1 % Monocytes (%) (Auto) 14.0 % Eosinophils (%) (Auto) 2.0 % Basophils (%) (Auto) 0.9 % Neutrophils # (Auto) 5.1 TH/MM3 Lymphocytes # (Auto) 1.2 TH/MM3 Monocytes # (Auto) 1.0 TH/MM3 Eosinophils # (Auto) 0.1 TH/MM3 Basophils # (Auto) 0.1 TH/MM3 CBC Comment AUTO DIFF Differential Comment AUTO DIFF CONFIRMED Target Cells 1+ Ovalocytes 1+ Sodium Level 138 MEQ/L Potassium Level 3.9 MEQ/L Chloride Level 100 MEQ/L Carbon Dioxide Level 30.1 MEQ/L Anion Gap 8 MEQ/L Blood Urea Nitrogen 32 MG/DL Creatinine 1.10 MG/DL Estimat Glomerular Filtration 50 ML/MIN Rate Random Glucose 91 MG/DL Calcium Level 7.8 MG/DL Phosphorus Level 2.6 MG/DL Magnesium Level 1.6 MG/DL Total Bilirubin 0.8 MG/DL Aspartate Amino Transf 33 U/L (AST/SGOT) Alanine Aminotransferase 56 U/L (ALT/SGPT) Alkaline Phosphatase 74 U/L Total Protein 4.9 GM/DL Albumin 2.3 GM/DL Physical Exam General General Appearance: No Acute Distress, Comfortable Eyes Eye Exam: Pupils Equal, Pupils Reactive, Sclera White, Extraocular Movement Intact Throat Throat Exam: Oral Mucosa [place] & Moist, Oral Pharynx Normal Neck Neck Exam: Neck Supple, Trachea Midline Pulmonary Resp Exam: Clear Bilaterally, Breath Sounds Equal Cardiology CV Exam: Regular, Normal Sinus Rhythm Gastrointestinal/Abdomen GI Exam: Soft, Non-Tender, Bowel Sounds Present Integumentary Skin Exam: Clear, Warm, Dry, Intact, Normal Turgor Neurologic Neuro Exam: Alert, Awake, Oriented, Moving All Extremities, No Focal Deficits VTE Prophylaxis VTE Prophylaxis Meds: Heparin PUD Prophylasis PUD Prophylaxis: Protonix Assessment/Plan Assessment/Plan ASSESSMENT AND PLAN 1. This is a 65-year-old female who came to the ER diagnosed with shortness of breath, cough, wheezing most likely secondary to COPD exacerbation as well as acute on chronic systolic congestive heart failure with elevation of troponin and CPK. The patient is on Lasix. The patient does have low blood pressure, monitoring blood pressure very carefully. We will take I&Os daily, fluid restriction to 1.5 liters per day, salt restriction to 2 grams per day. Cardiology is seeing the patient. The patient had poor medication compliance. We want to continue the Carvedilol with the Cozaar as tolerated by blood pressure. 2. Renal failure. We are monitoring BUN and creatinine. 3. Elevated CPK, most probably rhabdomyolysis. Cannot give too much IV fluids. 4. High LFTs, most likely secondary to hypoperfusion and low blood pressure. 5. Moderate to severe mitral regurgitation. 6. Cardiomyopathy with severe left ventricular systolic dysfunction, ejection fraction of 10-15%. Coronary artery disease, status post stenting in the right coronary artery. The patient is also status post mitral valve repair/replacement. 7. History of anxiety and depression. Continue home medications. 8. Noncompliance with medication. 9. Anemia secondary to chronic medical diseases. 10. High troponin with renal failure. Cardiology is seeing the patient. Further recommendation per Cardiology. 11. Elevated INR at 1.6. The patient is not on any Coumadin. We will monitor. better. 12. Hypotension, carefully giving Carvedilol and Lasix per Cardiology and also getting spironolactone. 13. DVT prophylaxis. The patient to have heparin 5000 units subcutaneous twice a day. 14. GI prophylaxis. Protonix 40 mg p.o. daily. 15. Nausea and vomiting. The patient on Zofran 4 mg IV q. 6 hours p.r.n. nausea and vomiting. 16. History of hyperlipidemia. Continue Lipitor 40 mg p.o. daily. 17. History of anxiety. Ativan 0.5 mg p.o. q.6 hours p.r.n. anxiety. 18. History of COPD. Continue home medications. The patient is on DuoNeb nebulization. We are going to manage the patient on a daily basis and make recommendations on a daily basis. Discussed Condition with: Patient Black Borja MD Apr 20, 2016 08:20
[2016-04-20] MEDS: SODIUM CHLORIDE 0.9% FLUSH 5 ML FLUSH IV FLUSH SCH ×2 (09:00→20:27)
[2016-04-20] MEDS: MUPIROCIN 2% OINT 1 APPLIC/GM SYR NASAL SCH (09:00)
[2016-04-20] MEDS: ARTIFICIAL TEARS OPTH SOLN 15 ML BTL EACH EYE SCH ×3 (09:00→18:00)
[2016-04-20] MEDS: MULTIVITAMIN TAB PO SCH (09:10)
[2016-04-20] MEDS: DOCUSATE SODIUM 100 MG CAP PO SCH ×2 (09:10→20:26)
[2016-04-20] MEDS: LOSARTAN 25 MG TAB PO SCH (09:10)
[2016-04-20] MEDS: SENNOSIDES 8.6 MG TAB PO SCH ×2 (09:10→20:26)
[2016-04-20] MEDS: ASPIRIN EC 81 MG TABEC PO SCH (09:10)
[2016-04-20] MEDS: VITAMIN B COMPLEX/VIT C TAB PO SCH (09:10)
[2016-04-20] MEDS: PANTOPRAZOLE SOD 40 MG DELAYED RELEASE TAB PO SCH (09:10)
[2016-04-20] MEDS: DIGOXIN 0.125 MG TAB PO SCH (09:10)
[2016-04-20] MEDS: CARVEDILOL 6.25 MG TAB PO SCH ×2 (09:11→20:26)
[2016-04-20] MEDS: SERTRALINE HCL 50 MG TAB PO SCH (09:11)
[2016-04-20] MEDS: ASCORBIC ACID 500 MG TAB PO SCH (09:14)
[2016-04-20] MEDS: SODIUM CHLORIDE 0.9% FLUSH 5 ML FLUSH IV FLUSH PRN (10:15)
[2016-04-20] MEDS: FUROSEMIDE 20 MG/2 ML VIAL IV PUSH SCH ×2 (10:15→17:44)
[2016-04-20] MEDS: MUPIROCIN 2% OINT 1 APPLIC/GM SYR EACH NARE SCH (20:26)
[2016-04-20] MEDS: ATORVASTATIN 40 MG TAB PO SCH (20:26)
[2016-04-20] MEDS: MELATONIN 5 MG TAB PO PRN (22:33)
[2016-04-21] VITALS (34 sets, daily range): BP systolic 91–117; BP diastolic 54–76; PULSE 54–104; RESP 16–33; TEMP 97.5–98.5; O2SAT 97–100
[2016-04-21] MEDS: LORazepam 0.5 MG TAB PO PRN ×2 (00:21→18:09)
[2016-04-21] MEDS: ACETAMINOPHEN/HYDROcodone 325 MG/5 MG TAB PO PRN ×2 (00:22→20:33)
[2016-04-21] MEDS: RESP: ALBUTEROL 2.5 MG/IPRATROPIUM 0.5 MG NEB (SCH) INH ×4 (03:53→21:41)
[2016-04-21] MEDS: CHLORHEXIDINE GLUCONATE 2 % 1 PACK (2 CLOTHS) TOP SCH (05:12)
[2016-04-21] MEDS: HEPARIN SODIUM - SQ 10,000 UNITS/ML VIAL SQ SCH ×2 (05:14→17:26)
[2016-04-21 05:29] LABS: AUTOMATED NEUTROPHIL # 4.6 TH/MM3 (1.8-7.7); BASOPHIL # 0.1 TH/MM3 (0-0.2); BASOPHIL % 0.7 % (0.0-2.0); EOSINOPHIL # 0.1 TH/MM3 (0-0.4); EOSINOPHIL % 1.7 % (0.0-4.0); HEMATOCRIT 28.2 % (35.0-46.0); LYMPH % 19.3 % (9.0-44.0); LYMPHOCYTE # 1.5 TH/MM3 (1.0-4.8); MEAN CELL VOLUME 74.9 FL (80.0-100.0); MEAN CORPUSCULAR HEMOGLOBIN 23.9 PG (27.0-34.0); MEAN CORPUSCULAR HGB CONC 31.9 % (32.0-36.0); MONO % 15.5 % (0.0-8.0); NEUT % 62.8 % (16.0-70.0); PLATELET COUNT 263 TH/MM3 (150-450); RED BLOOD COUNT 3.77 MIL/MM3 (4.00-5.30); RED CELL DISTRIBUTION WIDTH 19.8 % (11.6-17.2); WHITE BLOOD COUNT 7.5 TH/MM3 (4.0-11.0)
[2016-04-21 05:31] LABS: HEMO FLAGS AUTO DIFF
[2016-04-21 05:41] LABS: POTASSIUM 3.3 MEQ/L (3.5-5.1)
--- NOTE | 2016-04-21 05:49 | RADHPO ---
EXAM DATE/TIME: 04/21/2016 04:54 [facility] COMPARISON: CHEST SINGLE AP, April 20, 2016, 6:08. INDICATIONS : Shortness of breath. MEDICAL HISTORY : Hypertension. Congestive heart failure. Chronic obstructive pulmonary disease. SURGICAL HISTORY : Coronary artery stent. ENCOUNTER: Subsequent ACUITY: 1 week PAIN SCORE: Non-responsive. LOCATION: Bilateral chest FINDINGS: The cardiac silhouette is enlarged. There is a prosthetic valve in place. There is increased density at the bases with silhouetting of the hemidiaphragms. There is some indistinctness of the pulmonary v asculature. CONCLUSION: Cardiomegaly with suspected mild edema which appears to be improving. There is bibasilar areas of con solidation, atelectasis, and/or effusions. Ralph Ribeiro MD on April 21, 2016 at 5:46 Board Certified Radiologist. This report was verified electronically.
[2016-04-21 05:51] LABS: OVALOCYTES 1+ (NORMAL); PLATELET ESTIMATE SMEAR NORMAL (NORMAL); PLATELET MORPHOLOGY NORMAL (NORMAL); SCAN/DIFF AUTO DIFF CONFIRMED
[2016-04-21 05:54] LABS: BICARBONATE 31.1 MEQ/L (21.0-32.0); CALCIUM-PROTEIN CORRECTED 8.5 MG/DL (8.5-10.1); TOTAL BILIRUBIN ADULT 0.5 MG/DL (0.2-1.0)
[2016-04-21] MEDS: INSULIN NovoLIN REGULAR SUPPLEMENTAL SCALE SQ SCH ×4 (06:47→20:34)
--- NOTE | 2016-04-21 08:13 | HHI.PR ---
Subjective History of Present Illness Patient have low blood pressure but appear comfortable off presser support d/ w RN no other issue. Patient wants hospice care consulted. Review of Systems Constitutional Constitutional: Fatigue, Weakness Vitals/Results Intake & Output 04/20/16 04/20/16 04/21/16 15:00 23:00 07:00 Intake Total 120 ml 360 ml 360 ml Output Total 1900 ml Balance -1780 ml 360 ml 360 ml Intake Oral 120 ml 360 ml 360 ml Output Urine Total 1900 ml # Voids 3 2 # Bowel Movements 0 0 Vital Signs Vital Signs Date Time Temp Pulse Resp B/P Pulse Ox O2 Delivery O2 Flow Rate FiO2 04/21/16 07:01 92 17 103/72 98 04/21/16 06:01 94 19 116/76 100 04/21/16 06:00 54 04/21/16 05:01 92 20 104/66 04/21/16 04:01 98.0 92 19 104/75 99 04/21/16 04:00 100 04/21/16 03:01 94 21 105/60 99 04/21/16 02:01 94 20 110/69 99 04/21/16 02:00 97 04/21/16 01:22 20 04/21/16 01:01 98 23 102/67 99 04/21/16 00:01 97.8 100 28 111/68 99 04/21/16 00:00 98 04/20/16 23:01 98 21 112/70 98 04/20/16 22:01 96 35 111/70 04/20/16 22:00 97 04/20/16 21:01 96 27 108/68 98 04/20/16 20:01 97.4 96 22 111/66 98 04/20/16 20:00 94 04/20/16 19:58 95 04/20/16 19:01 96 24 131/65 97 04/20/16 18:01 92 21 116/65 04/20/16 18:00 92 04/20/16 17:01 92 23 103/52 04/20/16 16:01 88 19 102/54 04/20/16 16:00 88 04/20/16 15:01 88 19 106/58 04/20/16 14:01 90 04/20/16 14:01 90 22 105/70 04/20/16 14:00 90 22 105/70 04/20/16 14:00 90 04/20/16 13:50 90 38 04/20/16 13:50 90 04/20/16 13:01 92 40 98/68 04/20/16 12:00 94 04/20/16 11:01 96 19 109/53 97 04/20/16 10:01 90 20 100/55 98 04/20/16 10:00 90 04/20/16 09:34 98 21 04/20/16 09:01 92 20 105/59 CBC/BMP: 04/21/16 0450 04/21/16 0450 Lab Results Laboratory Tests Test 04/21/16 04:50 White Blood Count 7.5 TH/MM3 Red Blood Count 3.77 MIL/MM3 Hemoglobin 9.0 GM/DL Hematocrit 28.2 % Mean Corpuscular Volume 74.9 FL Mean Corpuscular Hemoglobin 23.9 PG Mean Corpuscular Hemoglobin 31.9 % Concent Red Cell Distribution Width 19.8 % Platelet Count 263 TH/MM3 Mean Platelet Volume 8.1 FL Neutrophils (%) (Auto) 62.8 % Lymphocytes (%) (Auto) 19.3 % Monocytes (%) (Auto) 15.5 % Eosinophils (%) (Auto) 1.7 % Basophils (%) (Auto) 0.7 % Neutrophils # (Auto) 4.6 TH/MM3 Lymphocytes # (Auto) 1.5 TH/MM3 Monocytes # (Auto) 1.2 TH/MM3 Eosinophils # (Auto) 0.1 TH/MM3 Basophils # (Auto) 0.1 TH/MM3 CBC Comment AUTO DIFF Differential Comment AUTO DIFF CONFIRMED Platelet Estimate NORMAL Platelet Morphology Comment NORMAL Ovalocytes 1+ Sodium Level 141 MEQ/L Potassium Level 3.3 MEQ/L Chloride Level 100 MEQ/L Carbon Dioxide Level 31.1 MEQ/L Anion Gap 10 MEQ/L Blood Urea Nitrogen 27 MG/DL Creatinine 0.99 MG/DL Estimat Glomerular Filtration 56 ML/MIN Rate Random Glucose 98 MG/DL Calcium Level 7.4 MG/DL Protein Corrected Calcium 8.5 MG/DL Total Bilirubin 0.5 MG/DL Aspartate Amino Transf 25 U/L (AST/SGOT) Alanine Aminotransferase 50 U/L (ALT/SGPT) Alkaline Phosphatase 94 U/L Total Protein 5.1 GM/DL Albumin 2.3 GM/DL Physical Exam General General Appearance: No Acute Distress, Comfortable Eyes Eye Exam: Pupils Equal, Pupils Reactive, Sclera White, Extraocular Movement Intact Throat Throat Exam: Oral Mucosa [place] & Moist, Oral Pharynx Normal Neck Neck Exam: Neck Supple, Trachea Midline Pulmonary Resp Exam: Clear Bilaterally, Breath Sounds Equal Cardiology CV Exam: Regular, Normal Sinus Rhythm Gastrointestinal/Abdomen GI Exam: Soft, Non-Tender, Bowel Sounds Present Integumentary Skin Exam: Clear, Warm, Dry, Intact, Normal Turgor Neurologic Neuro Exam: Alert, Awake, Oriented, Moving All Extremities, No Focal Deficits VTE Prophylaxis VTE Prophylaxis Meds: Heparin PUD Prophylasis PUD Prophylaxis: Protonix Assessment/Plan Assessment/Plan ASSESSMENT AND PLAN 1. This is a 65-year-old female who came to the ER diagnosed with shortness of breath, cough, wheezing most likely secondary to COPD exacerbation as well as acute on chronic systolic congestive heart failure with elevation of troponin and CPK. The patient is on Lasix. The patient does have low blood pressure, monitoring blood pressure very carefully. We will take I&Os daily, fluid restriction to 1.5 liters per day, salt restriction to 2 grams per day. Cardiology is seeing the patient. The patient had poor medication compliance. We want to continue the Carvedilol with the Cozaar as tolerated by blood pressure. 2. Renal failure. We are monitoring BUN and creatinine. 3. Elevated CPK, most probably rhabdomyolysis. Cannot give too much IV fluids. 4. High LFTs, most likely secondary to hypoperfusion and low blood pressure. 5. Moderate to severe mitral regurgitation. 6. Cardiomyopathy with severe left ventricular systolic dysfunction, ejection fraction of 10-15%. Coronary artery disease, status post stenting in the right coronary artery. The patient is also status post mitral valve repair/replacement. 7. History of anxiety and depression. Continue home medications. 8. Noncompliance with medication. 9. Anemia secondary to chronic medical diseases. 10. High troponin with renal failure. Cardiology is seeing the patient. Further recommendation per Cardiology. 11. Elevated INR at 1.6. The patient is not on any Coumadin. We will monitor. better. 12. Hypotension, carefully giving Carvedilol and Lasix per Cardiology and also getting spironolactone. 13. DVT prophylaxis. The patient to have heparin 5000 units subcutaneous twice a day. 14. GI prophylaxis. Protonix 40 mg p.o. daily. 15. Nausea and vomiting. The patient on Zofran 4 mg IV q. 6 hours p.r.n. nausea and vomiting. 16. History of hyperlipidemia. Continue Lipitor 40 mg p.o. daily. 17. History of anxiety. Ativan 0.5 mg p.o. q.6 hours p.r.n. anxiety. 18. History of COPD. Continue home medications. The patient is on DuoNeb nebulization. 19. Patient wants hospice care consulted. We are going to manage the patient on a daily basis and make recommendations on a daily basis. Discussed Condition with: Patient Black Borja MD Apr 21, 2016 08:13
[2016-04-21] MEDS: FUROSEMIDE 20 MG/2 ML VIAL IV PUSH SCH ×2 (08:49→17:26)
[2016-04-21] MEDS: VITAMIN B COMPLEX/VIT C TAB PO SCH (08:53)
[2016-04-21] MEDS: MUPIROCIN 2% OINT 1 APPLIC/GM SYR EACH NARE SCH ×2 (08:53→20:33)
[2016-04-21] MEDS: ASPIRIN EC 81 MG TABEC PO SCH (08:53)
[2016-04-21] MEDS: MULTIVITAMIN TAB PO SCH (08:53)
[2016-04-21] MEDS: DIGOXIN 0.125 MG TAB PO SCH (08:53)
[2016-04-21] MEDS: DOCUSATE SODIUM 100 MG CAP PO SCH ×2 (08:55→20:33)
[2016-04-21] MEDS: SERTRALINE HCL 50 MG TAB PO SCH (08:55)
[2016-04-21] MEDS: CARVEDILOL 6.25 MG TAB PO SCH ×2 (08:55→20:34)
[2016-04-21] MEDS: ASCORBIC ACID 500 MG TAB PO SCH (08:55)
[2016-04-21] MEDS: PANTOPRAZOLE SOD 40 MG DELAYED RELEASE TAB PO SCH (08:55)
[2016-04-21] MEDS: SENNOSIDES 8.6 MG TAB PO SCH ×2 (08:59→20:33)
[2016-04-21] MEDS: LOSARTAN 25 MG TAB PO SCH (09:00)
[2016-04-21] MEDS: SODIUM CHLORIDE 0.9% FLUSH 5 ML FLUSH IV FLUSH SCH ×2 (09:00→20:34)
[2016-04-21] MEDS: ARTIFICIAL TEARS OPTH SOLN 15 ML BTL EACH EYE SCH ×3 (09:00→17:34)
--- NOTE | 2016-04-21 18:17 | PD.CARD.PN ---
Subjective Subjective Remarks No CP, SOB improving, feels better Objective Medications Current Medications Medications (Trade) Dose Ordered Sig/Elza Route Start Time Stop Time Status Last Admin (Heparin Inj) 5,000 units Q12H SQ 04/16/16 06:00 04/21/16 17:26 (Ecotrin Ec) 81 mg DAILY PO 04/16/16 09:00 04/21/16 08:53 (Lipitor) 40 mg HS PO 04/16/16 21:00 04/20/16 20:26 (Lanoxin) 0.125 mg DAILY PO 04/16/16 09:00 04/21/16 08:53 (Ativan) 0.5 mg Q6H PRN PO 04/16/16 07:15 04/21/16 18:09 (Theragran) 1 tab DAILY PO 04/16/16 09:00 04/21/16 08:53 (Transderm-Scop 1.5 Mg Patch.72 Hr) 1 patch Q72H TD 04/16/16 09:00 (Zoloft) 100 mg DAILY PO 04/16/16 09:00 04/21/16 08:55 (Vitamin C) 250 mg DAILY PO 04/16/16 09:00 04/21/16 08:55 ([place]bee C) 1 tab DAILY PO 04/16/16 09:00 04/21/16 08:53 (Pill Splitter) 1 ea UNSCH PRN OTHER 04/16/16 07:30 04/19/16 08:20 Miscellaneous Information 1 Q72H TD 04/19/16 09:00 (Zofran Inj) 4 mg Q6H PRN IV 04/16/16 11:00 04/16/16 10:58 (Protonix) 40 mg DAILY PO 04/16/16 11:00 04/21/16 08:55 (Mag-Al Plus Susp Liq) 30 ml Q4H PRN PO 04/16/16 11:00 04/16/16 13:20 (Colace) 100 mg BID PO 04/17/16 09:00 04/21/16 08:55 Miscellaneous Information 1 Q361D XX 04/17/16 08:15 04/17/16 08:15 (Chlorhexidine 2% Cloth) 3 pack Taper DAILY@04 TOP 04/18/16 04:00 04/14/17 03:59 04/21/16 05:12 Chlorhexidine Gluconate 3 pack 3 pack UNSCH PRN TOP 04/17/16 08:15 Potassium Chloride 100 ml @ 50 mls/hr Q2H PRN IV 04/17/16 08:15 04/17/16 12:16 (KCl 20 Meq Premix Inj) 100 ml @ 50 mls/hr Q2H PRN IV 04/17/16 08:15 Potassium Chloride 40 meq 40 meq UNSCH PRN PO/TUBE 04/17/16 08:15 04/21/16 06:44 Potassium Chloride 100 ml @ 25 mls/hr UNSCH PRN IV 04/17/16 08:15 04/18/16 08:54 Potassium Chloride 100 ml @ 50 mls/hr Q2H PRN IV 04/17/16 08:15 (Magnesium Sulfate Inj/NS Inj) 100 ml @ 50 mls/hr UNSCH PRN IV 04/17/16 08:15 Magnesium Oxide 800 mg 800 mg UNSCH PRN PO 04/17/16 08:15 (Magnesium Sulfate Inj/NS Inj) 100 ml @ 50 mls/hr UNSCH PRN IV 04/17/16 08:15 Potassium Phosphate 2000 mg 2,000 mg Q4H PRN PO 04/17/16 08:15 (Sodium Phosphate Inj/NS 250 ml Inj) 250 ml @ 42 mls/hr UNSCH PRN IV 04/17/16 08:15 (KCl 40 Meq/30 ml Liq) 40 meq UNSCH PRN PO/TUBE 04/17/16 08:15 Potassium Phosphate 2000 mg 2,000 mg UNSCH PRN PO/TUBE 04/17/16 08:15 (Potassium Phosphate Inj/NS 250 ml Inj) 260 ml @ 42 mls/hr UNSCH PRN IV 04/17/16 08:15 (D50w (Vial) Inj) 25 ml UNSCH PRN IV PUSH 04/17/16 08:15 (Glucagon Inj) 1 mg UNSCH PRN OTHER 04/17/16 08:15 (Senokot) 8.6 mg Q12HR PO 04/18/16 09:00 04/20/16 20:26 (Lasix) 20 mg DAILY PO 04/18/16 09:00 Hold 04/18/16 08:45 (NS Flush) 2 ml UNSCH PRN IV FLUSH 04/18/16 06:30 04/20/16 10:15 (NS Flush) 2 ml BID IV FLUSH 04/18/16 09:00 04/21/16 09:00 (Tylenol) 650 mg Q6H PRN PO 04/18/16 06:30 ([place] 5-325 Mg) 1 tab Q4H PRN PO 04/18/16 06:30 04/21/16 00:22 (Morphine Inj) 2 mg Q2H PRN IV 04/18/16 06:30 (Tears Naturale Opth Soln) 1 drop TID EACH EYE 04/18/16 09:00 04/20/16 18:00 (Benadryl) 25 mg HS PRN PO 04/19/16 00:45 (Coreg) 3.125 mg Q12HR PO 04/19/16 09:00 04/21/16 08:55 (Melatonin) 5 mg HS PRN PO 04/19/16 21:00 04/20/16 22:33 (Lasix Inj) 20 mg BID@09,18 IV PUSH 04/19/16 09:00 04/21/16 17:26 (Cozaar) 6.25 mg DAILY PO 04/19/16 09:00 04/20/16 09:10 (Glycerin Adult Supp) 2 gm BID PRN RECTAL 04/19/16 07:15 (Requip) 0.25 mg HS PO 04/19/16 21:00 04/20/16 20:26 (Bactroban Nasal 2% Oint) 1 applic BID EACH NARE 04/20/16 21:00 04/21/16 08:53 Vital Signs / I&O Vital Signs Date Time Temp Pulse Resp B/P Pulse Ox O2 Delivery O2 Flow Rate FiO2 04/21/16 18:00 102 04/21/16 17:00 102 04/21/16 16:00 94 04/21/16 14:00 90 04/21/16 13:00 92 33 110/59 04/21/16 12:01 97.9 88 20 101/62 100 04/21/16 12:00 86 04/21/16 11:38 92 25 103/58 98 04/21/16 11:33 90 27 104/60 04/21/16 11:01 92 18 96/54 04/21/16 10:01 94 19 112/69 98 2/23/17 10:00 94 04/21/16 09:51 97 Nasal Cannula 21 04/21/16 09:00 96 04/21/16 09:00 92 16 95/61 100 04/21/16 08:01 97.5 98 23 91/72 98 04/21/16 08:00 100 04/21/16 07:01 92 17 103/72 98 04/21/16 06:01 94 19 116/76 100 04/21/16 06:00 54 04/21/16 05:01 92 20 104/66 04/21/16 04:01 98.0 92 19 104/75 99 04/21/16 04:00 100 04/21/16 03:01 94 21 105/60 99 04/21/16 02:01 94 20 110/69 99 04/21/16 02:00 97 04/21/16 01:22 20 04/21/16 01:01 98 23 102/67 99 04/21/16 00:01 97.8 100 28 111/68 99 04/21/16 00:00 98 04/20/16 23:01 98 21 112/70 98 04/20/16 22:01 96 35 111/70 04/20/16 22:00 97 04/20/16 21:01 96 27 108/68 98 04/20/16 20:01 97.4 96 22 111/66 98 04/20/16 20:00 94 04/20/16 19:58 95 04/20/16 19:01 96 24 131/65 97 I/O 04/20/16 04/20/16 04/20/16 04/21/16 04/21/16 04/21/16 07:00 15:00 23:00 07:00 15:00 23:00 Intake Total 200 ml 120 ml 360 ml 360 ml 480 ml Output Total 550 ml 1900 ml 400 ml Balance -350 ml -1780 ml 360 ml 360 ml 80 ml Intake Oral 200 ml 120 ml 360 ml 360 ml 480 ml IV Total 0 ml Output Urine Total 550 ml 1900 ml 400 ml # Voids 2 3 2 # Bowel Movements 2 0 0 0 Physical Exam GENERAL: In no distress SKIN: Warm and dry. HEAD: Normocephalic. EYES: No scleral icterus. No injection or drainage. NECK: Supple, trachea midline. No JVD or lymphadenopathy. CARDIOVASCULAR: Regular rate and rhythm with 1/6 syst murmur, S3 gallop. RESPIRATORY: Breath sounds equal bilaterally. No accessory muscle use. Few crackles. GASTROINTESTINAL: Abdomen soft, non-tender, nondistended. MUSCULOSKELETAL: No cyanosis, no edema. SKIN: abdominal rash/purpura Laboratory Laboratory Tests Test 04/21/16 04:50 White Blood Count 7.5 TH/MM3 Red Blood Count 3.77 MIL/MM3 Hemoglobin 9.0 GM/DL Hematocrit 28.2 % Mean Corpuscular Volume 74.9 FL Mean Corpuscular Hemoglobin 23.9 PG Mean Corpuscular Hemoglobin 31.9 % Concent Red Cell Distribution Width 19.8 % Platelet Count 263 TH/MM3 Mean Platelet Volume 8.1 FL Neutrophils (%) (Auto) 62.8 % Lymphocytes (%) (Auto) 19.3 % Monocytes (%) (Auto) 15.5 % Eosinophils (%) (Auto) 1.7 % Basophils (%) (Auto) 0.7 % Neutrophils # (Auto) 4.6 TH/MM3 Lymphocytes # (Auto) 1.5 TH/MM3 Monocytes # (Auto) 1.2 TH/MM3 Eosinophils # (Auto) 0.1 TH/MM3 Basophils # (Auto) 0.1 TH/MM3 CBC Comment AUTO DIFF Differential Comment AUTO DIFF CONFIRMED Platelet Estimate NORMAL Platelet Morphology Comment NORMAL Ovalocytes 1+ Sodium Level 141 MEQ/L Potassium Level 3.3 MEQ/L Chloride Level 100 MEQ/L Carbon Dioxide Level 31.1 MEQ/L Anion Gap 10 MEQ/L Blood Urea Nitrogen 27 MG/DL Creatinine 0.99 MG/DL Estimat Glomerular Filtration 56 ML/MIN Rate Random Glucose 98 MG/DL Calcium Level 7.4 MG/DL Protein Corrected Calcium 8.5 MG/DL Total Bilirubin 0.5 MG/DL Aspartate Amino Transf 25 U/L (AST/SGOT) Alanine Aminotransferase 50 U/L (ALT/SGPT) Alkaline Phosphatase 94 U/L Total Protein 5.1 GM/DL Albumin 2.3 GM/DL Imaging Last Impressions Chest X-Ray 04/21/16 0600 Signed Impressions: Service Date/Time: March 04:54 - CONCLUSION: Cardiomegaly with suspected mild edema which appears to be improving. There is bibasilar areas of consolidation, atelectasis, and/or effusions. Ralph Ribeiro MD Assessment and Plan Problem List: (1) Acute on chronic systolic (congestive) heart failure (2) Hx of mitral valve repair (3) Tricuspid regurgitation (4) Mitral regurgitation (5) GERM[place]N (acute kidney injury) (6) COPD exacerbation (7) Arteriosclerotic heart disease (ASHD) (8) Non compliance w medication regimen (9) Cardiomyopathy Assessment and Plan Off pressors. Continue tx for CHF. Slow but steady improvement. Seen by hospice , open to work with them. Sergio Gillis MD Apr 21, 2016 18:17
[2016-04-21] MEDS: ATORVASTATIN 40 MG TAB PO SCH (20:33)
[2016-04-21] MEDS: MELATONIN 5 MG TAB PO PRN (20:33)
[2016-04-22] VITALS (16 sets, daily range): BP systolic 80–123; BP diastolic 52–77; PULSE 92–112; RESP 16–35; TEMP 97.7–98.5; O2SAT 98–100
[2016-04-22] MEDS: RESP: ALBUTEROL 2.5 MG/IPRATROPIUM 0.5 MG NEB (SCH) INH (03:17)
[2016-04-22] MEDS: CHLORHEXIDINE GLUCONATE 2 % 1 PACK (2 CLOTHS) TOP SCH (04:00)
[2016-04-22] MEDS: LORazepam 0.5 MG TAB PO PRN ×2 (04:02→12:42)
[2016-04-22] MEDS: ACETAMINOPHEN/HYDROcodone 325 MG/5 MG TAB PO PRN (04:02)
[2016-04-22] MEDS: HEPARIN SODIUM - SQ 10,000 UNITS/ML VIAL SQ SCH (05:26)
[2016-04-22 05:38] LABS: AUTOMATED NEUTROPHIL # 6.5 TH/MM3 (1.8-7.7); BASOPHIL % 0.2 % (0.0-2.0); EOSINOPHIL # 0.1 TH/MM3 (0-0.4); EOSINOPHIL % 1.4 % (0.0-4.0); HEMATOCRIT 30.6 % (35.0-46.0); LYMPH % 16.8 % (9.0-44.0); LYMPHOCYTE # 1.6 TH/MM3 (1.0-4.8); MEAN CORPUSCULAR HEMOGLOBIN 22.6 PG (27.0-34.0); MEAN CORPUSCULAR HGB CONC 30.1 % (32.0-36.0); MONO % 12.5 % (0.0-8.0); NEUT % 69.1 % (16.0-70.0); PLATELET COUNT 284 TH/MM3 (150-450); RED BLOOD COUNT 4.08 MIL/MM3 (4.00-5.30); RED CELL DISTRIBUTION WIDTH 19.3 % (11.6-17.2); WHITE BLOOD COUNT 9.4 TH/MM3 (4.0-11.0)
[2016-04-22 05:43] LABS: HEMO FLAGS AUTO DIFF; POTASSIUM 3.4 MEQ/L (3.5-5.1)
[2016-04-22 05:55] LABS: BICARBONATE 30.5 MEQ/L (21.0-32.0); CALCIUM-PROTEIN CORRECTED 8.3 MG/DL (8.5-10.1); TOTAL BILIRUBIN ADULT 0.6 MG/DL (0.2-1.0)
[2016-04-22 06:01] LABS: OVALOCYTES 1+ (NORMAL); PLATELET ESTIMATE SMEAR NORMAL (NORMAL); PLATELET MORPHOLOGY NORMAL (NORMAL); SCAN/DIFF AUTO DIFF CONFIRMED
[2016-04-22] MEDS: INSULIN NovoLIN REGULAR SUPPLEMENTAL SCALE SQ SCH ×2 (06:29→12:37)
--- NOTE | 2016-04-22 07:09 | HHI.PR ---
Subjective History of Present Illness Patient have low blood pressure but appear comfortable off presser support d/ w RN no other issue.Patient wants hospice care input noted..ok to DC Under hospice care at home. Review of Systems Constitutional Constitutional: Fatigue, Weakness Vitals/Results Intake & Output 04/21/16 04/21/16 04/22/16 15:00 23:00 07:00 Intake Total 480 ml 240 ml 120 ml Output Total 400 ml Balance 80 ml 240 ml 120 ml Intake Oral 480 ml 240 ml 120 ml IV Total 0 ml Output Urine Total 400 ml # Voids 1 2 # Bowel Movements 0 0 1 Vital Signs Vital Signs Date Time Temp Pulse Resp B/P Pulse Ox O2 Delivery O2 Flow Rate FiO2 04/22/16 06:00 100 24 107/65 100 04/22/16 06:00 102 04/22/16 05:02 18 04/22/16 05:00 100 24 99/70 100 04/22/16 04:00 98.0 98 28 111/73 100 04/22/16 04:00 103 04/22/16 03:00 102 21 96/52 100 04/22/16 02:00 105 04/22/16 02:00 106 24 100/53 100 04/22/16 00:00 100 04/22/16 00:00 98.0 98 20 116/66 99 04/21/16 23:11 102 27 111/58 04/21/16 22:00 100 31 109/63 04/21/16 22:00 104 04/21/16 21:41 99 21 04/21/16 21:00 98.2 100 26 107/62 99 04/21/16 20:00 97 04/21/16 19:00 98 24 105/58 98 04/21/16 18:00 102 04/21/16 18:00 102 25 106/65 04/21/16 17:00 102 04/21/16 16:00 98.5 94 23 109/62 04/21/16 16:00 94 04/21/16 14:00 96 23 117/66 04/21/16 14:00 90 04/21/16 13:00 92 33 110/59 04/21/16 12:01 97.9 88 20 101/62 100 04/21/16 12:00 86 04/21/16 11:38 92 25 103/58 98 04/21/16 11:33 90 27 104/60 04/21/16 11:01 92 18 96/54 04/21/16 10:01 94 19 112/69 98 04/21/16 10:00 94 04/21/16 09:51 97 Nasal Cannula 21 04/21/16 09:00 96 04/21/16 09:00 92 16 95/61 100 04/21/16 08:01 97.5 98 23 91/72 98 04/21/16 08:00 100 CBC/BMP: 04/22/16 0443 04/22/16 0443 Lab Results Laboratory Tests Test 04/22/16 04:43 White Blood Count 9.4 TH/MM3 Red Blood Count 4.08 MIL/MM3 Hemoglobin 9.2 GM/DL Hematocrit 30.6 % Mean Corpuscular Volume 75.0 FL Mean Corpuscular Hemoglobin 22.6 PG Mean Corpuscular Hemoglobin 30.1 % Concent Red Cell Distribution Width 19.3 % Platelet Count 284 TH/MM3 Mean Platelet Volume 8.4 FL Neutrophils (%) (Auto) 69.1 % Lymphocytes (%) (Auto) 16.8 % Monocytes (%) (Auto) 12.5 % Eosinophils (%) (Auto) 1.4 % Basophils (%) (Auto) 0.2 % Neutrophils # (Auto) 6.5 TH/MM3 Lymphocytes # (Auto) 1.6 TH/MM3 Monocytes # (Auto) 1.2 TH/MM3 Eosinophils # (Auto) 0.1 TH/MM3 Basophils # (Auto) 0.0 TH/MM3 CBC Comment AUTO DIFF Differential Comment AUTO DIFF CONFIRMED Platelet Estimate NORMAL Platelet Morphology Comment NORMAL Ovalocytes 1+ Sodium Level 140 MEQ/L Potassium Level 3.4 MEQ/L Chloride Level 100 MEQ/L Carbon Dioxide Level 30.5 MEQ/L Anion Gap 10 MEQ/L Blood Urea Nitrogen 26 MG/DL Creatinine 1.00 MG/DL Estimat Glomerular Filtration 56 ML/MIN Rate Random Glucose 89 MG/DL Calcium Level 7.3 MG/DL Protein Corrected Calcium 8.3 MG/DL Total Bilirubin 0.6 MG/DL Aspartate Amino Transf 21 U/L (AST/SGOT) Alanine Aminotransferase 46 U/L (ALT/SGPT) Alkaline Phosphatase 76 U/L Total Protein 5.2 GM/DL Albumin 2.3 GM/DL Physical Exam General General Appearance: No Acute Distress, Comfortable Eyes Eye Exam: Pupils Equal, Pupils Reactive, Sclera White, Extraocular Movement Intact Throat Throat Exam: Oral Mucosa [place] & Moist, Oral Pharynx Normal Neck Neck Exam: Neck Supple, Trachea Midline Pulmonary Resp Exam: Clear Bilaterally, Breath Sounds Equal Cardiology CV Exam: Regular, Normal Sinus Rhythm Gastrointestinal/Abdomen GI Exam: Soft, Non-Tender, Bowel Sounds Present Integumentary Skin Exam: Clear, Warm, Dry, Intact, Normal Turgor Neurologic Neuro Exam: Alert, Awake, Oriented, Moving All Extremities, No Focal Deficits VTE Prophylaxis VTE Prophylaxis Meds: Heparin PUD Prophylasis PUD Prophylaxis: Protonix Assessment/Plan Assessment/Plan ASSESSMENT AND PLAN 1. This is a 65-year-old female who came to the ER diagnosed with shortness of breath, cough, wheezing most likely secondary to COPD exacerbation as well as acute on chronic systolic congestive heart failure with elevation of troponin and CPK. The patient is on Lasix. The patient does have low blood pressure, monitoring blood pressure very carefully. We will take I&Os daily, fluid restriction to 1.5 liters per day, salt restriction to 2 grams per day. Cardiology is seeing the patient. The patient had poor medication compliance. We want to continue the Carvedilol with the Cozaar as tolerated by blood pressure. 2. Renal failure. We are monitoring BUN and creatinine. 3. Elevated CPK, most probably rhabdomyolysis. Cannot give too much IV fluids. 4. High LFTs, most likely secondary to hypoperfusion and low blood pressure. 5. Moderate to severe mitral regurgitation. 6. Cardiomyopathy with severe left ventricular systolic dysfunction, ejection fraction of 10-15%. Coronary artery disease, status post stenting in the right coronary artery. The patient is also status post mitral valve repair/replacement. 7. History of anxiety and depression. Continue home medications. 8. Noncompliance with medication. 9. Anemia secondary to chronic medical diseases. 10. High troponin with renal failure. Cardiology is seeing the patient. Further recommendation per Cardiology. 11. Elevated INR at 1.6. The patient is not on any Coumadin. We will monitor. better. 12. Hypotension, carefully giving Carvedilol and Lasix per Cardiology and also getting spironolactone. 13. DVT prophylaxis. The patient to have heparin 5000 units subcutaneous twice a day. 14. GI prophylaxis. Protonix 40 mg p.o. daily. 15. Nausea and vomiting. The patient on Zofran 4 mg IV q. 6 hours p.r.n. nausea and vomiting. 16. History of hyperlipidemia. Continue Lipitor 40 mg p.o. daily. 17. History of anxiety. Ativan 0.5 mg p.o. q.6 hours p.r.n. anxiety. 18. History of COPD. Continue home medications. The patient is on DuoNeb nebulization. Patient wants hospice care input noted..ok to DC Under hospice care at home. Discussed Condition with: Patient Black Borja MD Apr 22, 2016 07:09 Black Borja MD Apr 22, 2016 07:09
[2016-04-22] MEDS ORDERED: POTA10TA2 PO (07:26)
[2016-04-22] MEDS ORDERED: POTASSIUM CHLORIDE 20 MEQ CONTROLLED RELEASE TAB PO ONE (08:30)
[2016-04-22] MEDS: FUROSEMIDE 20 MG TAB PO SCH (08:30)
[2016-04-22] MEDS: MUPIROCIN 2% OINT 1 APPLIC/GM SYR EACH NARE SCH (08:44)
[2016-04-22] MEDS: ARTIFICIAL TEARS OPTH SOLN 15 ML BTL EACH EYE SCH ×2 (08:44→13:00)
[2016-04-22] MEDS: PANTOPRAZOLE SOD 40 MG DELAYED RELEASE TAB PO SCH (08:45)
[2016-04-22] MEDS: ASPIRIN EC 81 MG TABEC PO SCH (08:45)
[2016-04-22] MEDS: VITAMIN B COMPLEX/VIT C TAB PO SCH (08:45)
[2016-04-22] MEDS: CARVEDILOL 6.25 MG TAB PO SCH (08:46)
[2016-04-22] MEDS: ASCORBIC ACID 500 MG TAB PO SCH (08:46)
[2016-04-22] MEDS: DOCUSATE SODIUM 100 MG CAP PO SCH (08:47)
[2016-04-22] MEDS: SERTRALINE HCL 50 MG TAB PO SCH (08:47)
[2016-04-22] MEDS: DIGOXIN 0.125 MG TAB PO SCH (08:47)
[2016-04-22] MEDS: MULTIVITAMIN TAB PO SCH (08:47)
[2016-04-22] MEDS: REMOVE OLD SCOPOLAMINE PATCH TD SCH (08:48)
[2016-04-22] MEDS: SCOPOLAMINE 1.5 MG PATCH TD SCH (08:48)
[2016-04-22] MEDS: SENNOSIDES 8.6 MG TAB PO SCH (08:48)
[2016-04-22] MEDS: LOSARTAN 25 MG TAB PO SCH (08:50)
[2016-04-22] MEDS: SODIUM CHLORIDE 0.9% FLUSH 5 ML FLUSH IV FLUSH SCH (08:54)
[2016-04-22] MEDS ORDERED: predniSONE 20 MG TAB PO SCH (09:00)
--- NOTE | 2016-04-25 07:59 | MD ---
cc: BLACK GILLESPIE MD ADMISSION DATE: 04/16/2016 DISCHARGE DATE: 04/22/2016 Okay to discharge the patient to home with Hospice care. Condition at the time of discharge: Fair. Activity: As tolerated. Diet: Cardiac diet. ALLERGIES METOPROLOL. DISCHARGE MEDICATIONS 1. Albuterol inhaler, two puff inhalation q.6h. 2. Ascorbic acid 250 mg p.o. daily. 3. Aspirin 81 mg daily. 4. Lipitor 40 mg p.o. daily. 5. B-Complex p.o. daily. 6. Carvedilol 25 mg p.o. q.12h. 7. Digoxin 0.125 mg p.o. daily. 8. Furosemide 40 mg p.o. daily. 9. Lorazepam 0.5 mg p.o. q.6h. 10.Multivitamin p.o. daily. 11.Potassium chloride ER 10 mEq p.o. daily. 12.Scopolamine, one patch q.72h. 13.Zoloft 100 mg p.o. daily. 14.Spironolactone 12.5 mg p.o. daily. ADMITTING DIAGNOSIS 1. Shortness of breath, cough and wheezing, likely secondary to COPD exacerbation as well as acute on chronic systolic congestive heart failure. The patient has an ejection fraction of 10-15%. 2. Renal failure. 3. Rhabdomyolysis. The patient was on IV fluid. 4. History of high LFTs secondary to hypoperfusion and low blood pressure. 5. Moderate to severe mitral regurgitation. 6. Cardiomyopathy with severe left ventricular systolic function, ejection fraction 10-15%. 7. History of anxiety and depression. 8. Noncompliance with medication. 9. High troponin secondary to renal failure. 10.Elevated INR at 1.6. 11.Nausea and vomiting which has resolved. 12.History of hyperlipidemia. 13.History of anxiety. 14.History of COPD. HOSPITAL COURSE This is a 65-year-old female admitted with the above-mentioned complaints and problems, seen by Dr. Gillis of cardiology during the hospital stay. The patient has hypertension. The patient was given pressor support during the hospital stay. The patient remained in the ICU. The patient opted to have hospice care, discussed with cardiology, Dr. Gillis, Dr. Gillis agreed with the plan. The patient had anemia with a hemoglobin of around 9. The patient also had hypokalemia which was replaced. The patient also hypocalcemia and phosphorus was low which was replaced. The patient had low protein and albumin. The patient's INR was 1.4. The patient was not on Coumadin. Digoxin level was low at 0.4. The patient's chest x-ray showed severe cardiomegaly, no acute cardiopulmonary disease. Please see further details in the medical record. Black Gillespie MD EA/ALIDA /7:09 AM /7:49 AM
== END 2016-04-22 16:45 | disposition hospice, home (50) | DRG 291 ==
LOC: PHED 01:47 → NEDA 04:18 → PHEDA 05:16 → PHICU 07:15
PROVIDERS: ADMIT Family Medicine; ATTEND Family Medicine
PROC: 05HM33Z Insertion of Infusion Device into Right Internal Jugular Vein, Percutaneous Approach (ICD-10-PCS; principal; 2016-04-17)
PROC: B543ZZA Ultrasonography of Right Jugular Veins, Guidance (ICD-10-PCS; 2016-04-17)
DX: I50.23 Acute on chronic systolic (congestive) heart failure (principal); R57.0 Cardiogenic shock; J44.1 Chronic obstructive pulmonary disease with (acute) exacerbation; N17.9 Acute kidney failure, unspecified; I13.0 Hypertensive heart and chronic kidney disease with heart failure and stage 1 through stage 4 chronic kidney disease, or unspecified chronic kidney disease; E44.0 Moderate protein-calorie malnutrition; D68.9 Coagulation defect, unspecified; I95.9 Hypotension, unspecified; M62.82 Rhabdomyolysis; I42.9 Cardiomyopathy, unspecified; E83.51 Hypocalcemia; N18.9 Chronic kidney disease, unspecified; D50.9 Iron deficiency anemia, unspecified; E78.00 Pure hypercholesterolemia, unspecified; Z91.14 Patient's other noncompliance with medication regimen; E87.6 Hypokalemia; E78.5 Hyperlipidemia, unspecified; I25.10 Atherosclerotic heart disease of native coronary artery without angina pectoris; J45.909 Unspecified asthma, uncomplicated; K21.9 Gastro-esophageal reflux disease without esophagitis; I08.1 Rheumatic disorders of both mitral and tricuspid valves; F41.9 Anxiety disorder, unspecified; G47.00 Insomnia, unspecified; Z95.5 Presence of coronary angioplasty implant and graft; Z95.2 Presence of prosthetic heart valve; Z66 Do not resuscitate; Z87.891 Personal history of nicotine dependence; Z79.82 Long term (current) use of aspirin
CPT/HCPCS: 36556; 71010; 76937; 80053; 80162; 82550; 82552; 82948; 83605; 83735; 83880; 84100; 84484; 85025; 85610; 85730; 87641; 93005; 94150; 94640; 94664; 94667; 94668; J1265; J1644; J1940; J2250; J2405; J3010; J3475; J3480; J7512